=== PATIENT | female | born 1950 | race Two or more races ===

== ENCOUNTER 2024-07-08 14:26 | Outpatient (AMB) | payer OTHER, SELFPAY ==
--- NOTE | 2024-07-08 14:29 | HO.NEPHOV_ITS ---
Vital Signs 07/08/24 14:36 Weight 232 lb 2 oz BP 142/66 H Blood Pressure Location Lt brachial Position Sitting Pulse 71 Pulse Source Pulse Oximeter Pulse Oximetry (%) 97 Oxygen Delivery Method Room Air Intake Visit Reasons: DX- HTN-Conf [employer] Required: No Accompanied by: Other Relationship Allergies aspirin Allergy (Verified 06/30/24 16:37) Unknown terbinafine Allergy (Verified 06/30/24 16:37) Rash HPI Comments Details: I had the privilege of seeing Harriett in consultation for labile blood pressure. She is known to have hypertension for a long time and had been on amlodipine before, which has caused ankle swelling as a side effect and subsequently got discontinued. She has history of CVA without any significant deficits. She has been started on losartan, dose of which has been adjusted(currently 75 mg). Her blood pressure continues to be fluctuant and is not at goal all the time. She has no history of hypokalemia, hypercalcemia, uncontrolled thyroid disorders and denied any symptoms suggestive of sleep apnea. She keeps up with a normal diet. She does not have any pedal edema, coronary artery disease, orthostatic symptoms, palpitation or proteinuria. She has dyslipidemia and is on simvastatin. She did not have any specific systemic complaints at the time of this office visit. [facility] Medical History (Updated 07/08/24 @ 21:48 by Osman Gibbons MD) History of cerebral angiography Transient cerebral ischemia ASHKAN (stress urinary incontinence, female) Shoulder impingement syndrome Onychomycosis Lateral epicondylitis Knee osteoarthritis Insomnia Inguinal hernia Hyperlipidemia Hyperglycemia GERD (gastroesophageal reflux disease) Fibromyalgia syndrome Dyspepsia Diverticulosis Depression Chronic constipation Chronic back pain Cerebral arteriovenous malformation Bilateral chronic knee pain Benign paroxysmal vertigo Benign essential hypertension Arteriovenous malformation (AVM) Anogenital lichen sclerosus Adult-onset obesity Atopic dermatitis Abdominal pain Family History (Updated 07/08/24 @ 14:33 by Daylin Wright MA) Son Diabetes Social History (Updated 06/30/24 @ 16:36 by Daylin Wright MA) Alcohol intake: never Patient Tobacco Use Status: Never used Tobacco Review of Systems Const All systems reviewed & are unremarkable except as noted in HPI and below Physical Exam Vital Signs: Last Vital Signs Pulse 71 07/08/24 14:36 BP 142/66 H 07/08/24 14:36 Pulse Ox 97 03/13/25 14:36 Oxygen Delivery Method Room Air 03/13/25 14:36 Const General: comfortable and no acute distress Orientation/consciousness: patient oriented x3 HEENT Head: Yes normocephalic Mouth: Normal oral and palatal mucosa present Eyes EOM: EOMs intact bilaterally Neck Neck: Yes supple Resp Auscultation: clear to auscultation bilaterally Cardio Jugular venous distension: no JVD Rate: regular rate GI Palpation (GI): Soft to palpation Auscultation: normal bowel sounds General: Yes no CVA tenderness Back/Spine/Pelvis Back: no CVA tenderness Skin General skin exam: no rashes or lesions noted Neuro General: patient oriented x3 and moves all extremities Extrem General: Yes no pedal edema Results Reviewed Nephrology Results: No Data to Display Assessment & Plan Assessment & Plan (1) Hypertension: Code(s): I10 - Essential (primary) hypertension Category: Medical Qualifiers: Hypertension type: primary hypertension Qualified Code(s): I10 - Essential (primary) hypertension Plan Harriett has longstanding hypertension and has tried a calcium channel sallie before but had to be discontinued due to edema side effect. She should be on a low-sodium diet and should lose some weight. She could benefit from GLP 1 agonist. She should be on a low-sodium diet. She also will benefit from a slee p study. Her thyroid function is normal. She has history of CVA and her blood pressure should be maintained at less than 130/80 mmHg. I put her on 24 hour ambulatory blood pressure monitor today. I shall continue to optimize the dose of her medications to get her blood pressure to goal. She should be on Lipitor to get her lipid profile better controlled. Further management is pending evolving data. Answered all questions Orders: Orders AMB 24 HR B/P Monitor PLACEMENT Today I10 - Essential (primary) hypertension Coding Level of Care Code New Pt Level 4 (69849) Diagnoses Primary hypertension I10 Hypertension type: primary hypertension
[2024-07-08 14:36] VITALS: BP 142/66; PULSE 71; O2SAT 97
--- OUTSIDE RECORDS SUMMARY | 2024-07-08 18:17 | XMS_ITS | Clinical Summary ---
Author Organization [address] [place] Address [address] [place] [address] Phone Care Team Providers Care Customer Service Supervisor Name Role Phone Physician, No Pcp Primary Care Provider Unavaila ble Allergies Active Allergy Reactions Criticality Noted Date Comments Aspirin Other,Rash Low 06/29/2022 GI upset only Penicillins Unknown High 07/14/2022 Terbinafine Rash Low 06/29/2022 Medications brimonidine (ALPHAGAN) 0.2 % ophthalmic solution 1 drop. 06/07/19 23 Active dicyclomine (BENTYL) 20 mg tablet Take 1 tablet (20 mg total) by mouth. 06/25/19 23 Active dorzolamide-t imoloL (COSOPT) 22.3-6.8 mg/mL ophthalmic solution Administer 1 drop into both eyes 2 (two) times a day. 09/29/19 21 Active latanoprost (XALATAN) 0.005 % ophthalmic solution 1 drop. 06/07/19 23 Active levETIRAcetam (KEPPRA) 500 mg tablet Take 1 tablet (500 mg total) by mouth 2 (two) times a day. 08/14/19 23 Active meclizine (ANTIVERT) 12.5 mg tablet Take 1 tablet (12.5 mg total) by mouth. 09/21/19 19 Active pantoprazole (PROTONIX) 40 mg EC tablet Take 1 tablet (40 mg total) by mouth 2 (two) times a day. 05/17/19 23 Active senna 8.6 mg tablet TAKE 2 TABLET BY MOUTH DAILY FOR CONSTIPATION WITH PLENTY OF WATER. 04/11/20 22 Active simethicone (MYLICON) 80 mg chewable tablet CHEW 1 TABLET BY MOUTH TWICE A DAY NEEDED 05/27/19 23 Active simvastatin (ZOCOR) 20 mg tablet Take 1 tablet (20 mg total) by mouth. 05/30/19 Active zolpidem (AMBIEN) 10 mg tablet Take 1 tablet (10 mg total) by mouth. 05/29/19 Active ergocalcifero l, vitamin D2, (VITAMIN D2 ORAL) Take by mouth. Activ e losartan (COZAAR) 50 mg tablet Take 1 tablet (50 mg total) by mouth 1 (one) time each day. Active amLODIPine (NORVASC) 5 mg tablet Take 1 tablet (5 mg total) by mouth 1 (one) time each day. 08/14/19 025 Discontinued diphenhydrAMI NE (Banophen) 25 mg capsule TAKE 1 CAPSULE BY MOUTH TWICE A DAY FOR MOTION SICKNESS 05/26/19 025 Discontinued lactulose (CHRONULAC) solution TAKE 15ML BY MOUTH DAILY NEEDED FOR CONSTIPATION, TAKE WITH PLENTY OF FLUIDS 06/04/19 23 025 Discontinued(S top Taking at Discharge) methocarbamoL (ROBAXIN) 750 mg tablet Take 1 tablet (750 mg total) by mouth. 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 AVM (arteriovenous malformation) 06/29/2022 TIA (transient ischemic attack) 06/29/2022 Encounters Date Type Department Care Team Description 07/05/2024 Telephone Neurosurgery - [facility] [address] [place] [address] Ning Vann MA 06/23/2024 11:57 AM EST - 06/24/2024 9:51 AM EST Hospital Encounter [facility] ICU 5-[address] [place] [address] Vaibhav Cevallos MD Condit, [place], MD Khader Eliyas, Javed, MD Dural arteriovenous fistula Discharge Disposition: Home or Self Care 06/23/2024 11:41 AM EST Anesthesia Event [facility] Interventional Radiology [address] [place] [address] Columba Gomez MD Debin, Adam M, 06/22/2024 Telephone Neurosurgery - [facility] [address] [place] [address] Ning Vann MA 06/16/2024 Telephone Neurosurgery - [place] [address] [place] [id number] Jackson Guan MD 06/15/2024 Telephone Neurosurgery - [facility] [address] [place] [address] Sharmaine Sargent, RN IR date 04/27/2024 Telephone Neurosurgery - [facility] [address] [place] [address] Sharmaine Sargent, RN from Last 3 Months Immunizations Name Administration Dates Next Due Influenza Virus Vaccine, H5n 1, A/[place]/ (National Stockpile) 03/02/2015,02/10/2012 Pneumococcal conjugate 13 va lent (Prevnar 13, PCV13) 2mo and older 07/03/2016 Pneumococcal polysaccharide 23 valent (Pneumovax 23) 2yo and older 09/03/2017,04/08/2011 Td Tetanus diptheria (Tdvax) 7yo and older 10/17 Tdap Tetanus diptheria acell ular pertussis (Boostrix; Adacel) 7yo and older 09/17/2018,06/16/2014 Zoster Live 07/02/2016 Surgical History Surgery Date Site/Laterality Comments EXPLORATORY LAPAROTOMY W/ VAIBHAV WEL RESECTION 2008 PROCEDURE:EXPLORATORY LAPAROTOMY W/ BOWEL RESECTION;COMMENT:for perforated bowel, no ostomy Medical History Medical History Date Comments HLD (hyperlipidemia) DX:HLD (hyp erlipidemia) GERD (gastroesophageal reflux disease) DX:GERD (gastroesophageal reflux disease) Glaucoma DX:Glaucoma Family History Medical History Relation Name Comments Heart attack Father Stroke Mother in sleep possibly from stroke Relation Name Status Comments Father Mother Social History Tobacco Use Types Packs/Day Years Used Date Smoking Tobacco: Never Smokeless Tobacco: Never Tobacco Cessation:Counseling Given: Not Answered Alcohol Use Standard Drinks/Week Comments Not Currently 0 (1 standard drink = 0.6 oz pur e alcohol) Housing Instability Answer Date Recorde d Are you worried that in the next 2 months you may not have stable housing? No 06/23/2024 Food Access & Nutrition Answer Date Rec orded Do you have access to a vari ety of food including fruits and vegetables? No 06/23/2024 Health Literacy Answer Date Recorded How often do you need to hav e someone help you when you read instructions, pamphlets, or other written material from your doctor or pharmacy? Never 06/23/2024 Caregiver: How often do you need to have someone help you when you read instructions, pamphlets, or other written material from your doctor or pharmacy? Not on file 06/23/2024 Financial Risk Answer Date Recorded How hard is it for you to pa y for the very basics like food, housing, medical care, and air conditioning / heating? Not very hard 06/23/2024 Transportation Answer Date Recorded Has the lack of transportati on kept you from meetings, work, or from getting things needed for daily living? No Has the lack of transportati on kept you from medical appointments or from getting medications? No 06/23/2024 Social Isolation Answer Date Recorded How often do you feel lonely or isolated from th ose around you? Never 06/23/2024 Food Risk Answer Date Recorded Within the past 12 months we worried whether our food would run out before we got money to buy more. Never true 06/23/2024 Within the past 12 months th e food we bought just didn't last and we didn't have money to get more. Never true 06/23/2024 Dependent Care Answer Date Recorded Do you need help finding or paying for care for your loved ones. For example, child nutrition assistant or elderly care for an older adult? No 06/23/2024 Education Answer Date Recorded Do you think completing more education or training, like finishing a GED, going to college, or learning a trade, would be helpful for you? No 06/23/2024 Employment and Income Answer Date Recor ded During the last four weeks, have you been actively looking for work? No 06/23/2024 Living Situation Answer Date Recorded What is your living situation? 0 06/23/2024 Interpersonal Safety Answer Date Record ed Physical Abuse 06/23/2024 Verbal Abuse 06/23/2024 Comments Unknown Sex and Gender Information Value Date Recorded Sex Assigned at Female 05/17/2024 8:52 AM EST Legal Sex Female 3:32 PM EST Gender Identity Female 05/17/2024 8:52 AM EST Sexual Orientation Not on file Obstetrics History Last Filed Vital Signs Vital Sign Reading Time Taken Comments Blood Pressure 137/57 06/24/2024 11:00 AM EST Pulse 78 06/24/2024 11:00 AM EST Temperature 37.1 ??C (98.8 ??F) 06/24/2024 8:00 AM ES T Respiratory Rate 15 06/24/2024 11:00 AM EST Oxygen Saturation 97% 06/24/2024 11:00 AM EST Inhaled Oxygen Concentration - - Weight 101 kg (222 lb) 06/23/2024 8:42 AM EST Height 167.6 cm (5' 6 ) 06/23/2024 8:42 AM EST Body Mass Index 35.83 06/23/2024 8:42 AM EST Plan of Treatment Health Maintenance Due Date Last Done Comments Breast Cancer Screening 1950 RSV Immunization Patients 60+ Years Old (1 - Risk 60-74 years 1-dose series) 2011 Zoster Vaccines (2 of 3) 08/27/2016 07/02/2016 Colorectal Cancer Screening: Colonoscopy 03/27/2022 Depression Screening 03/27/2022 Hepatitis C Screening 03/27/2022 Medicare Annual Wellness Visit 03/27/2022 Osteoporosis Screening (Bone Density Screening) 03/27/2022 COVID-19 Vaccine ( - season) 2023 04/24/2021, 08/17/2020, 07/20/2020 Influenza Vaccine (#1) 2023 03/02/2015, 2011 Social Influencers of Health Screening 06/23/2025 06/23/2024 Falls Risk Assessment 06/24/2025 06/24/2024 Hypertension/CHF/CAD Annual BMP Blood Test 06/24/2025 06/24/2024, 06/23/2024, 06/15/2024, Additional history exists Cholesterol Screening (Lipid Panel) 07/02/2027 07/01/2022, 07/01/2022 DTaP,Tdap,and Td Vaccines (4 - Td or Tdap) 09/17/2028 09/17/2018, 06/16/2014, 10/17/2004 Pneumococcal Vaccine: 50+ Years Completed 09/03/2017, 07/03/2016, 04/08/2011 HIB Vaccines Aged Out No longer eligi ble based on patient's age to complete this topic HPV Vaccines Aged Out No longer eligi ble based on patient's age to complete this topic Hepatitis A Vaccines Aged Out No long er eligible based on patient's age to complete this topic Hepatitis B Vaccines Aged Out No long er eligible based on patient's age to complete this topic IPV Vaccines Aged Out No longer eligi ble based on patient's age to complete this topic MMR Vaccines Aged Out No longer eligi ble based on patient's age to complete this topic Meningococcal ACWY Vaccine Aged Out N o longer eligible based on patient's age to complete this topic Meningococcal B Vacine Aged Out No lo nger eligible based on patient's age to complete this topic RSV Immunization Patients Under 20 months Aged Out No longer eligible based on patient's age to complete this topic Varicella Vaccines Aged Out No longer eligible based on patient's age to complete this topic Medical Devices Implanted Type Area Set Up Operator Device Identifier Shelf Expiration Date Model / Serial / Lot Embolic Syst Liq Clarkson 18 - [id number] - [id number] Implanted:Qt y: 1 on 06/23/2024 at [facility] Embolectomy Implants Right: Brain [employer] - EV3 FKA COVD-EV3 11/23/2026 [id number] / [id number] / Device Clsur Angioseal 6f Vip 5/Pk 10/Bx/Ca - [id number] - [id number] Implanted:Qt y: 1 on 06/23/2024 at [facility] Vascular Closure Devices Right: Groin TERUMO - INTERVENTIONAL SYSTEM 11/04/2024 [id number] / [id number] / Embolic Syst Liq Clarkson 18 Medt-Ev3 [id number] Implanted:Qt y: 2 on 07/03/2022 [employer] - CARDIAC RHYTH-CRDM 08/24/2023 [id number] / / [id number] Procedures Procedure Name Priority Date/Time Associated Diagnosis Comments POCT GLUCOSE BLOOD Routine 06/24/2024 8: 58 AM EST COMPLETE BLOOD COUNT Routine 06/24/2024 4:58 AM EST PHOSPHORUS Routine 06/24/2024 4:58 AM EST MAGNESIUM Routine 06/24/2024 4:58 AM EST HEPATIC FUNCTION PANEL Routine 06/24/2024 4:58 AM EST BASIC METABOLIC PANEL Routine 06/24/2024 4:58 AM EST POCT GLUCOSE BLOOD Routine 06/24/2024 12 :39 AM EST HEMOGLOBIN A1C Routine 06/23/2024 7:25 PM EST PHOSPHORUS Routine 06/23/2024 7:25 PM EST MAGNESIUM Routine 06/23/2024 7:25 PM EST COMPLETE BLOOD COUNT Routine 06/23/2024 7:25 PM EST COMPREHENSIVE METABOLIC PANEL Routine 06/23/2024 7:25 PM EST ECG 12-LEAD Routine 06/23/2024 5:08 PM EST POCT GLUCOSE BLOOD Routine 06/23/2024 5: 03 PM EST IR TRANSCATH OCCLUSION/EMBOLIZATIO N RETORT PRESS OPERATOR PERC Routine 06/23/2024 3:26 PM EST Dural arteriovenous fistula POCT ACTIVATED CLOTTING TIME Routine 06/23/2024 1:34 PM EST TH AN ARTERIAL LINE (CHARGE) Routine 06/23/2024 1:33 PM EST TH AN ENDOTRACHEAL(NO CHARGE) Routine 06/23/2024 1:30 PM EST POCT ACTIVATED CLOTTING TIME Routine 06/23/2024 12:35 PM EST PROTHROMBIN TIME WITH INR Routine 06/15/2024 9:29 AM EST TIA (transient ischemic attack) 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) AVM (arteriovenous malformation) BASIC METABOLIC PANEL Routine 06/15/2024 9:29 AM EST TIA (transient ischemic attack) 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 Pathologist [facility] Glucose POCT 118 70 - 199 mg/dL 06/24/2024 8:59 AM EST [facility] Comment: Fasting Reference Range: ? 70-99 mg/dL Non-Fasting Reference Range: 70-199 mg/dL Blood Capillary blood specimen / Unknown 06/24/2024 8:58 AM EST 06/24/2024 9:00 AM EST Shai Wellington MD LAB POINT OF CARE TE ST DOCKED DEVICE UNSOLICITED RESULTS Final Result [facility] [address] [place] [address], [place] [phone] * (ABNORMAL) Complete blood count (06/24/2024 4:58 AM EST) Only the most recent of3 resultswithin the time period is included. WBC 5.6 4.0 - 10.5 K/mcL LAB HEMETOLOGY METHOD 06/24/2024 5:25 AM EST [facility] RBC 4.11(L) 4.20 - 5.40 M/mcL LAB HEMETOLOGY METHOD 06/24/2024 5:25 AM EST [facility] Hemoglobin 13.3 12.5 - 16.0 g/dL LAB HEMETOLOGY METHOD 06/24/2024 5:25 AM EST [facility] Hematocrit 39.8 37.0 - 47.0 % LAB HEMETOLOGY METHOD 06/24/2024 5:25 AM EST [facility] MCV 96.9 78.0 - 100.0 FL LAB HEMETOLOGY METHOD 06/24/2024 5:25 AM EST [facility] MCH 32.3 25.0 - 33.0 pcg LAB HEMETOLOGY METHOD 06/24/2024 5:25 AM EST [facility] MCHC 33.4 32.0 - 36.0 g/dL LAB HEMETOLOGY METHOD 06/24/2024 5:25 AM EST [facility] RDW 14.0 12.1 - 16.2 % LAB HEMETOLOGY METHOD 06/24/2024 5:25 AM EST [facility] Platelets 204 150 - 450 K/mcL LAB HEMETOLOGY METHOD 06/24/2024 5:25 AM EST [facility] MPV 10.3 7.4 - 11.4 FL LAB HEMETOLOGY METHOD 06/24/2024 5:25 AM EST [facility] Blood Venous blood specimen / Unknown Venipuncture / Unknown 06/24/2024 4:58 AM EST 06/24/2024 5:18 AM EST us Vaibhav Cevallos MD LAB BLOOD ORDERABLES Final Res ult [facility] [address] [place] [address], * (ABNORMAL) Phosphorus (06/24/2024 4:58 AM EST) Only the most recent of2 resultswithin the time period is included. Phosphorus 5.8(H) 2.5 - 4.5 mg/dL LAB CHEMISTRY METHOD 06/24/2024 5:51 AM EST [facility] Comment:Moderately hemolyzed Blood Venous blood specimen / Unknown Venipuncture / Unknown 06/24/2024 4:58 AM EST 06/24/2024 5:18 AM EST us Vaibhav Cevallos MD LAB BLOOD ORDERABLES Final Res ult [facility] [address] [place] [id number], * Magnesium (06/24/2024 4:58 AM EST) Only the most recent of2 resultswithin the time period is included. [facility] Magnesium 1.8 1.7 - 2.8 mg/dL LAB CHEMISTRY METHOD 06/24/2024 5:51 AM EST [facility] Comment:Moderately hemolyzed Blood Venous blood specimen / Unknown Venipuncture / Unknown 06/24/2024 4:58 AM EST 06/24/2024 5:18 AM EST us Vaibhav Cevallos MD LAB BLOOD ORDERABLES Final Res ult [facility] [address] [place] [address], [place] [phone] * Hepatic function panel (06/24/2024 4:58 AM EST) [facility] ALT (SGPT) 13 7 - 52 unit/L LAB CHEMISTRY METHOD 06/24/2024 5:51 AM EST [facility] Comment:Moderately hemolyzed AST (SGOT) 37 5 - 40 unit/L LAB CHEMISTRY METHOD 06/24/2024 5:51 AM EST [facility] Comment:Moderately hemolyzed Alkaline Phosphatase 41 34 - 104 unit/L LAB CHEMISTRY METHOD 06/24/2024 5:51 AM EST [facility] Comment:Moderately hemolyzed Bilirubin, Direct 0.1 0.0 - 0.2 mg/dL LAB CHEMISTRY METHOD 06/24/2024 5:51 AM EST [facility] Comment:Moderately hemolyzed Total Bilirubin 0.6 0.3 - 1.0 mg/dL LAB CHEMISTRY METHOD 06/24/2024 5:51 AM EST [facility] Comment:Moderately hemolyzed Total Protein 6.7 6.4 - 8.5 g/dL LAB CHEMISTRY METHOD 06/24/2024 5:51 AM EST [facility] Comment:Moderately hemolyzed Albumin 3.7 3.5 - 5.0 g/dL LAB CHEMISTRY METHOD 06/24/2024 5:51 AM EST [facility] Comment:Moderately hemolyzed Globulin, Total 3.0 2.3 - 3.5 g/dL LAB CHEMISTRY METHOD 06/24/2024 5:51 AM [facility] A/G Ratio 1.2 LAB CHEMISTRY METHOD 06/24/2024 5:51 AM [facility] Blood Venous blood specimen / Unknown Venipuncture / Unknown 06/24/2024 4:58 AM EST 06/24/2024 5:18 AM EST us Vaibhav Cevallos MD LAB BLOOD ORDERABLES Final Res ult [facility] [address] [place] [address], [place] [phone] * (ABNORMAL) Basic metabolic panel (06/24/2024 4:58 AM EST) Only the most recent of2 resultswithin the time period is included. [facility] Signature Sodium 139 135 - 145 mmol/L LAB CHEMISTRY METHOD 06/24/2024 5:51 AM EST [facility] Comment:Moderately hemolyzed Potassium 4.2 3.5 - 5.1 mmol/L LAB CHEMISTRY METHOD 06/24/2024 5:51 AM [facility] Comment:Moderately hemolyzed Chloride 106 98 - 107 mmol/L LAB CHEMISTRY METHOD 06/24/2024 5:51 AM [facility] Comment:Moderately hemolyzed CO2 24 24 - 32 mmol/L LAB CHEMISTRY METHOD 06/24/2024 5:51 AM [facility] Comment:Moderately hemolyzed Anion Gap 9 5 - 14 LAB CHEMISTRY METHOD 06/24/2024 5:51 AM [facility] Glucose 162 70 - 199 mg/dL LAB CHEMISTRY METHOD 06/24/2024 5:51 AM [facility] Comment:Moderately hemolyzed BUN 10 7 - 17 mg/dL LAB CHEMISTRY METHOD 06/24/2024 5:51 AM [facility] Comment:Moderately hemolyzed Creatinine 0.70 0.50 - 1.00 mg/dL LAB CHEMISTRY METHOD 06/24/2024 5:51 AM [facility] Comment:Moderately hemolyzed eGFR 91 >=60 mL/min/1. 73m2 LAB CHEMISTRY METHOD 06/24/2024 5:51 AM [facility] Comment:Calculation based on the??Chronic Kidney Disease Epidemiology Collaboration (CKD-EPI) equation refit??without adjustment for race. BUN/Creatinine Ratio 14.3 12.0 - 20.0 LAB CHEMISTRY METHOD 06/24/2024 5:51 AM [facility] Calcium 8.1(L) 8.4 - 10.2 mg/dL LAB CHEMISTRY METHOD 06/24/2024 5:51 AM [facility] Comment:Moderately hemolyzed Blood Venous blood specimen / Unknown Venipuncture / Unknown 06/24/2024 4:58 AM EST 06/24/2024 5:18 AM EST Vaibhav Cevallos MD LAB BLOOD ORDERABLES Final Res ult Performing Organization Address City/[facility]/ZIP Co de Phone Number [facility] [address] [place] [address], [place] [phone] * (ABNORMAL) Hemoglobin A1c (06/23/2024 7:25 PM EST) Hemoglobin A1C 6.1(H) <5.7 % LAB CHEMISTRY METHOD 06/24/2024 8:58 AM EST [facility] Mean Bld Glu Estim. 128 mg/dL LAB CHEMISTRY METHOD 06/24/2024 8:58 AM EST [facility] Blood Venous blood specimen / Unknown Venipuncture / Unknown 06/23/2024 7:25 PM EST 06/23/2024 7:42 PM EST Narrative [facility] - 06/24/2024 8:58 AM EST ADA Guidelines: ?? Increased risk Diabetes Mellitus A1C 5.7 - 6.4% and Fasting Blood Glucose 100 - 125 mg/dl Diabetes Mellitus: A1C >6.5% and Fasting Blood Glucose >125 mg/dl Vaibhav Cevallos MD LAB BLOOD ORDERABLES Final Res ult Performing Organization Address City/[facility]/ZIP Co de Phone Number [facility] [address] [place] [address], [place] [phone] * (ABNORMAL) Comprehensive metabolic panel (06/23/2024 7:25 PM EST) Sodium 137 135 - 145 mmol/L LAB CHEMISTRY METHOD 06/23/2024 8:13 PM EST [facility] Potassium 3.7 3.5 - 5.1 mmol/L LAB CHEMISTRY METHOD 06/23/2024 8:13 PM EST [facility] Chloride 107 98 - 107 mmol/L LAB CHEMISTRY METHOD 06/23/2024 8:13 PM EST [facility] CO2 21(L) 24 - 32 mmol/L LAB CHEMISTRY METHOD 06/23/2024 8:13 PM [facility] Anion Gap 9 5 - 14 LAB CHEMISTRY METHOD 06/23/2024 8:13 PM [facility] Glucose 155 70 - 199 mg/dL LAB CHEMISTRY METHOD 06/23/2024 8:13 PM [facility] BUN 11 7 - 17 mg/dL LAB CHEMISTRY METHOD 06/23/2024 8:13 PM [facility] Creatinine 0.70 0.50 - 1.00 mg/dL LAB CHEMISTRY METHOD 06/23/2024 8:13 PM [facility] eGFR 91 >=60 mL/min/1. 73m2 LAB CHEMISTRY METHOD 06/23/2024 8:13 PM [facility] Comment:Calculation based on the??Chronic Kidney Disease Epidemiology Collaboration (CKD-EPI) equation refit??without adjustment for race. BUN/Creatinine Ratio 15.7 12.0 - 20.0 LAB CHEMISTRY METHOD 06/23/2024 8:13 PM [facility] Calcium 8.7 8.4 - 10.2 mg/dL LAB CHEMISTRY METHOD 06/23/2024 8:13 PM [facility] AST (SGOT) 22 5 - 40 unit/L LAB CHEMISTRY METHOD 06/23/2024 8:13 PM [facility] ALT (SGPT) 11 7 - 52 unit/L LAB CHEMISTRY METHOD 06/23/2024 8:13 PM [facility] Alkaline Phosphatase 59 34 - 104 unit/L LAB CHEMISTRY METHOD 06/23/2024 8:13 PM [facility] Total Protein 7.3 6.4 - 8.5 g/dL LAB CHEMISTRY METHOD 06/23/2024 8:13 PM [facility] Albumin 4.2 3.5 - 5.0 g/dL LAB CHEMISTRY METHOD 06/23/2024 8:13 PM [facility] Total Bilirubin 0.6 0.3 - 1.0 mg/dL LAB CHEMISTRY METHOD 06/23/2024 8:13 PM EST [facility] Blood Venous blood specimen / Unknown Venipuncture / Unknown 06/23/2024 7:25 PM EST 06/23/2024 7:42 PM EST Vaibhav Cevallos MD LAB BLOOD ORDERABLES Final Res ult Performing Organization Address [facility] Co de Phone Number [facility] [address] [place] [address], [place] [phone] * ECG 12 lead (06/23/2024 5:08 PM EST) Ventricular Rate ECG 95 BPM GEMUSE Atrial Rate 95 BPM GEMUSE P-R Interval 182 ms GEMUSE QRS Duration 84 ms GEMUSE Q-T Interval 358 ms GEMUSE QTc 449 ms GEMUSE P Wave [place] 66 degrees GEMUSE R [place] 39 degrees GEMUSE T [place] 54 degrees GEMUSE ECG Interpretation Normal sinus rhythm Nonspecific ST and T wave abnormality Abnormal ECG When compared with ECG of 29-JUN-2022 23:08, Vent. rate has increased BY ??35 BPM Confirmed by Jayson Carty ([id number]) on 07/02/2024 11:33:28 PM GEMUSE 06/23/2024 5:08 PM EST 07/02/2024 11:33 PM EST Vaibhav Cevallos MD ECG ORDERABLES Final Result Performing Organization Address [facility] Co de Phone Number GEMUSE * IR Transcath Occlusion/Embolization RETORT PRESS OPERATOR Perc (06/23/2024 3:26 PM EST) Anatomical Region Laterality Modality Interventional R adiology 06/25/2024 8:21 AM EST Impressions 06/25/2024 5:23 PM EST 1. Successful embolization of dural arteriovenous fistula supplied by right middle meningeal artery. ??Follow up angiography showed no residual fistula. Report reviewed and signed by : Dr. Jackson Villatoro MD on 06/25/2024 5:23 PM. Workstation Name - [id number] -------- FINAL REPORT -------- Dictated By: Jackson Guan Dictated Date: 06/25/2024 08:21 ET Assigned Physician: Jackson Guan Reviewed and Electronically Signed By: Jackson Guan Signed Date: 06/25/2024 17:23 ET Workstation ID: [id number] Transcribed By: Self Edit Transcribed Date: 06/25/2024 08:21 ET Narrative 06/25/2024 5:23 PM EST Patient Name: HARRIETT HOLT ? MR#: [id number] ? Exam Description: IR TRANSCATH OCCLUSION/EMBOLIZATION RETORT PRESS OPERATOR PERC ? Exam Date/Time: 06/23/2024 11:28 AM PROCEDURE: 1. Cervicocerebral catheter angiography 2. 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 ?? RADIATION DOSE: Dose area product: 12538 uGym2, air kerma: 2009 mGy CONTRAST USE: 100 mL Isovue 300. ANESTHESIA: GETA VESSELS CATHETERIZED/PROJECTIONS: Right external carotid artery PA and lateral Right common carotid artery PA and lateral Left common carotid artery PA and lateral Left vertebral artery EQUIPMENT: 5-Canadian Mast 2 selection catheter Joy 5 F guide cathter Navien intermediate catheter 6F Shuttle sheath SL-10 Headway duo microcatheter [place] 014 microwire Synchro 2 soft 014 microwire 0.035 Glidewire Angioseal closure device TECHNIQUE/FINDINGS: The risks, benefits, and alternatives to the procedure and possible intervention were discussed with the patient's parents. Written informed consent was obtained. The patient was placed supine on the angiography table. GETA was induced by anesthesia. A timeout was performed. Bilateral groins were prepped and draped in standard sterile fashion. Access to the right femoral artery was obtained using standard micropuncture technique, under ultrasound guidance after confirming patency of the right common femoral artery and its branches.. ??A 6 Canadian shuttle sheath was placed and attached to continuous heparinized flush. Through the arterial sheath, 5 Canadian diagnostic catheter was over 035 Glidewire to select the right external carotid artery. ??A solution catheter and Glidewire were removed after advancing the shuttle into the distal right external carotid artery. ??Baseline angiogram of the right external carotid artery was then performed. ??This showed persistent high parietal dural arteriovenous fistula supplied primarily by the posterior branch of the right middle meningeal artery. ??Next, a SL 10 microcatheter was taken over Synchro wire 10 microwire with further support augmented by Navien intermediate catheter. The intermediate catheter was advanced until the origin of the middle meningeal artery while the SL 10 microcatheter was taken into the middle meningeal artery branch that supplied the fistula. Due to the tortuosity of the posterior branch off the right middle meningeal artery that was supplying the fistula, significant challenges experienced in advancing the catheter close to the fistula. ??Different microwire were used but microcatheter could not advance to an optimum position. ??Hence, an exchange length Synchro 2 microwire was then used to remove the center microcatheter and intermediate catheter. ??Next, over the 014 exchange length microwire, an headway duo microcatheter was advanced with the support of Joy 5-Canadian catheter. ??This was still challenging but eventually microcatheter could be advanced very close to the fistula itself. ??Once placed in optimum position, the microwire was removed and the microcatheter catheter prepped with DMSA. Next, under live fluoroscopy, Clarkson was used to embolize the fistula with reasonably good penetration. Follow up angiography of the right external carotid artery was then performed, which showed no evidence of any distal fistula. ??The shuttle was then brought down into the common carotid artery and AP and lateral angiogram of the right common carotid artery was obtained. ??This also showed no residual fistulization in addition to confirming patency of all major intracranial vasculature. ??Next, the shuttle was brought into the descending aorta and the left common carotid artery was selected with a 5-Canadian selection catheter over 035 Glidewire to perform AP and lateral angiogram. ??This showed patent intracranial vasculature and no evidence of a suitable dural artery venous fistula. ??Finally, the left vertebral artery was selected with the 5-Canadian selection catheter and 035 Glidewire to obtain an angiogram in AP and lateral plane. ??Review of this angiogram showed that the left vertebral artery is dominant and all major basilar artery branches were patent, without any signs of dural arterial venous fistula The catheters were then removed. An Angioseal closure device was placed to close the operative site in the right common femoral artery. Hemostasis was achieved. A sterile dressing was applied. The patient transported to the Intensive Care Unit. There were no immediate complications. 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 Cervicocerebral catheter angiography 2. Fernando embolization of right middle meningeal artery pedicle embolizationof dural arterial venous fistula [employer]AURANT MANAGER(S): Jackson Villatoro MD INDICATION: High-grade dural arterial venous fistula, status post previouspartial embolization COMPARISON: Cerebral angiogram from 06/18/2023 FLUOROSCOPY TIME: 88 minutes. RADIATION DOSE: Dose area product: 99853 uGym2, air kerma: 2009 mGy CONTRAST USE: 100 mL Isovue 300. ANESTHESIA: GETA VESSELS CATHETERIZED/PROJECTIONS: Right external carotid artery PA and lateral Right common carotid artery PA and lateral Left common carotid artery PA and lateral Left vertebral artery EQUIPMENT: 5-Canadian Mast 2 selection catheter Joy 5 F guide cathter Navien intermediate catheter 6F Shuttle sheath SL-10 Headway duo microcatheter [place] 014 microwire Synchro 2 soft 014 microwire 0.035 Glidewire Angioseal closure device TECHNIQUE/FINDINGS: The risks, benefits, and alternatives to the procedure and possibleintervention were discussed with the patient's parents. Written informedconsent was obtained. The patient was placed supine on the angiographytable. GETA was induced by anesthesia. A timeout was performed. Bilateralgroins were prepped and draped in standard sterile fashion. Access to theright femoral artery was obtained using standard micropuncture technique,under ultrasound guidance after confirming patency of the right commonfemoral artery and its branches.. A 6 Canadian shuttle sheath was placedand attached to continuous heparinized flush. Through the arterial sheath, 5 Canadian diagnostic catheter was over 035Glidewire to select the right external carotid artery. A solutioncatheter and Glidewire were removed after advancing the shuttle into thedistal right external carotid artery. Baseline angiogram of the rightexternal carotid artery was then performed. This showed persistent highparietal dural arteriovenous fistula supplied primarily by the posteriorbranch of the right middle meningeal artery. Next, a SL 10 microcatheterwas taken over Synchro wire 10 microwire with further support augmented byNavien intermediate catheter. The intermediate catheter was advanced untilthe origin of the middle meningeal artery while the SL 10 microcatheterwas taken into the middle meningeal artery branch that supplied thefistula. Due to the tortuosity of the posterior branch off the right middlemeningeal artery that was supplying the fistula, significant challengesexperienced in advancing the catheter close to the fistula. Differentmicrowire were used but microcatheter could not advance to an optimumposition. Hence, an exchange length Synchro 2 microwire was then used toremove the center microcatheter and intermediate catheter. Next, over uxc680 exchange length microwire, an headway duo microcatheter was advancedwith the support of Joy 5-Canadian catheter. This was still challengingbut eventually microcatheter could be advanced very close to the fistulaitself. Once placed in optimum position, the microwire was removed andthe microcatheter catheter prepped with DMSA. Next, under livefluoroscopy, Clarkson was used to embolize the fistula with reasonably goodpenetration. Follow up angiography of the right external carotid artery was thenperformed, which showed no evidence of any distal fistula. The shuttlewas then brought down into the common carotid artery and AP and lateralangiogram of the right common carotid artery was obtained. This alsoshowed no residual fistulization in addition to confirming patency of allmajor intracranial vasculature. Next, the shuttle was brought into thedescending aorta and the left common carotid artery was selected with a5- Canadian selection catheter over 035 Glidewire to perform AP and lateralangiogram. This showed patent intracranial vasculature and no evidence ofa suitable dural artery venous fistula. Finally, the left vertebralartery was selected with the 5-Canadian selection catheter and 035 Glidewireto obtain an angiogram in AP and lateral plane. Review of this angiogramshowed that the left vertebral artery is dominant and all major basilarartery branches were patent, without any signs of dural arterial venous fistula The catheters were then removed. An Angioseal closure device was placed toclose the operative site in the right common femoral artery. Hemostasiswas achieved. A sterile dressing was applied. The patient transported tothe Intensive Care Unit. There were no immediate complications. IMPRESSION: 1. Successful embolization of dural arteriovenous fistula supplied byright middle meningeal artery. Follow up angiography showed no residualfistula. Report reviewed and signed by : Dr. Jackson Villatoro MD on 55:23 PM. Workstation Name - [id number] -------- FINAL REPORT -------- Dictated By: Jackson Guan Dictated Date: 06/25/2024 08:21 ET Assigned Physician: Jackson Guan Reviewed and Electronically Signed By: Jackson Guan Signed Date: 06/25/2024 17:23 ET Workstation ID: [id number] Transcribed By: Self Edit Transcribed Date: 06/25/2024 08:21 ET Jackson Villatoro MD IMG IR PROCEDURES Final R esult * POC Activated clotting time manually resulted (06/23/2024 1:34 PM EST) Only the most recent of2 resultswithin the time period is included. Activated Clotting Time Celite POCT 340 sec Blood Venous blood specimen / Unknown 06/23/2024 1:34 PM EST Jackson Villatoro MD POINT OF CARE TEST ENTER/ EDIT ORDERABLES Final Result * TH AN ARTERIAL LINE (CHARGE) (06/23/2024 1:33 PM EST) Narrative Yousuf Yao DO - 06/23/2024 1:33 PM EST Yousuf Yao DO ? 06/23/2024 ??1:33 PM Arterial Line Performed by: Yousuf Yao DO Authorized by: Yousuf Yao DO ?? Yousuf Yao DO ANESTHESIA ORDERABLES Final Resu lt * TH AN ENDOTRACHEAL(NO CHARGE) (06/23/2024 1:30 PM EST) Narrative Yousuf Yao DO - 06/23/2024 1:30 PM EST Yousuf Yao, DO ? 06/23/2024 ??1:32 PM General Information and Staff Patient location during procedure: OR Anesthesiologist: Yousuf Yao DO Performed: anesthesiologist Performed by: Yousuf Yao DO Authorized by: Yousuf Yao DO ?? Intubation Urgency: elective Final Airway Details Successful airway: ETT Cuffed: yes Successful intubation technique: direct laryngoscopy Endotracheal tube insertion site: oral Blade: Vogel Blade size: #3 ETT size (mm): 7.5 Placement verified by: chest auscultation Measured from: lips ETT to lips (cm): 21Final airway type: endotracheal airway Indications and Patient Condition Indications for airway management: anesthesia Spontaneous ventilation: present Sedation level: Yes Preoxygenated: yes Soft Tissue Damage: No Dentition Unchanged: Yes Patient position: neutral MILS maintained throughout Mask difficulty assessment: 1 - vent by mask us Yousuf Yao DO ANESTHESIA ORDERABLES Final Resu lt * Prothrombin time with INR (06/15/2024 9:29 AM EST) Protime 11.4 10.5 - 13.3 sec LAB COAGULATION METHOD 06/15/2024 2:36 PM EST [facility] INR 1.0 0.8 - 1.1 LAB COAGULATION METHOD 06/15/2024 2:36 PM EST [facility] Blood Venous blood specimen / Unknown Venipuncture / Unknown 06/15/2024 9:29 AM EST 06/15/2024 9:29 AM EST formerly [facility] - 06/15/2024 2:36 PM EST Std. Therapy ?2.0-3.0 INR High Dose Therapy 3.0-4.5 INR Ranges may vary depending on clinical indications and protocol. us Jackson Villatoro MD LAB BLOOD ORDERABLES Elina paiz Result [facility] [address] [place] [address], [place] [phone] * Lipid panel (07/01/2022) Triglycerides 141 <=150 mg/dL Cholesterol 175 0 - 200 mg/dL HDL 52 33 - 92 mg/dL LDL Cholesterol 95 50 - 130 mg/dL Blood Venous blood specimen / Unknown Historical Provider LAB BLOOD ORDERABLES Elina l Result from Last 3 Months or Most Recently Relevant to Health Maintenance Insurance [address] [address] MEDICARE Member Subscriber Plan / Payer (Ef fective 2022-Present) Name:Harriett Holt Relation to Subscriber:Self Name:Harriett Holt Payer ID:[id number] Group ID:[id number] Type:Not on file Address: [place] [address] [address] [id number] Advance Directives * Full Code - Confirmed (Latest Code Status on File) Date Activated Date Inactivated Comments 06/23/2024 4:09 PM 06/24/2024 2:[address] atus was ascertained in the following way: Code status discussion: discussion with healthcare chain sales representative To update the patient's code status, place a code status order. Do not modify or discontinue any currently active code status orders. * Full Code - Default Date Activated Date Inactivated Comments 06/23/2024 12:17 PM 06/23/2024 4:09 PM This is ord er is used when code status has not been discussed with the patient, or code status is otherwise unknown/unconfirmed To update the patient's code status, place a code status order. Do not modify or discontinue any currently active code status orders. Care Teams Customer Service Supervisor Relationship Specialty Start Date End Date Physician, No Pcp PCP - General 06/23/24
--- OUTSIDE RECORDS SUMMARY | 2024-07-08 18:17 | XMS_ITS | Encounter Summary ---
Author Organization [facility] Address [address] [place] [address] Care Team Providers Care Cuff Setter Name Role Phone Physician, No Pcp Primary Care Provider Unavaila ble Encounter Details Date Type Department Care Team (Late st Contact Info) Description 06/22/2024 Telephone [facility] [place] [address] [place] [address] Ning Vann MA Social History Tobacco Use Types Packs/Day Years Used Date Smoking Tobacco: Never Smokeless Tobacco: Never Alcohol Use Standard Drinks/Week Comments Not Currently [...] for your loved ones. For example, child adolescent care or elderly care for an older adult? [...] AM EST Sexual Orientation Not on file documented as of this encounter Progress Notes * Ning Vann MA - 06/22/2024 8:54 AM EST Pt's daughter returned Dr. Shauna velasquez. documented in this encounter Plan of Treatment Not on file documented as of this encounter Visit Diagnoses Not on filedocumented in this encounter Care Teams Cuff Setter Relationship Specialty Start Date End Date Physician, No Pcp PCP - General 06/23/24 documented as of this encounter
--- OUTSIDE RECORDS SUMMARY | 2024-07-08 18:17 | XMS_ITS | Encounter Summary ---
Author Organization [facility] Address [address] [place] [address] Care Team Providers Care Oracle Database Architect Name Role Phone Physician, No Pcp Primary Care Provider Unavaila ble Encounter Details Date Type Department Care Team (Late st Contact Info) Description 07/05/2024 Telephone [facility] [place] [address] [place] [address] Ning Vann MA Social History [...] for your loved ones. For example, child & adolescent psychiatrist or elderly care for an older adult? [...] on file documented as of this encounter Plan of Treatment Not on file documented as of this encounter Visit Diagnoses Not on filedocumented in this encounter Care Teams Oracle Database Architect Relationship Specialty Start Date End Date Physician, No Pcp PCP - General 06/23/24 documented as of this encounter
--- OUTSIDE RECORDS SUMMARY | 2024-07-08 18:17 | XMS_ITS ---
Author Name [facility] Organization Unknown Results Test Name/Text Value Interpretation Date Range Source Glucose Bld-mCnc 118mg/dL Normal 70 - 199 [facility] Est. average glucose Bld gHb Est-mCnc 128mg/dL Normal [id number] [facility] HbA1c MFr Bld 6.1% Above high normal [id number] - 5.7 [facility] AST SerPl-cCnc 37unit/L Normal [id number] 5 - 40 [facility] ALP SerPl-cCnc 41unit/L Normal [id number] 34 - 104 [facility] Globulin Ser Calc-mCnc 3g/dL Normal 2.3 - 3.5 [facility] Bilirub Direct SerPl-mCnc 0.1mg/dL Normal [id number] 0 - 0.2 [facility] ALT SerPl-cCnc 13unit/L Normal [id number] 7 - 52 [facility] Albumin/Glob SerPl 1.2 [id number] [facility] Bilirub SerPl-mCnc 0.6mg/dL Normal 0.3 - 1 [facility] Albumin SerPl-mCnc 3.7g/dL Normal [id number] 3.5 - 5 [facility] Prot SerPl-mCnc 6.7g/dL Normal [id number] 6.4 - 8.5 [facility] Potassium SerPl-sCnc 4.2mmol/L Normal [id number] 3.5 - 5.1 [facility] Glucose SerPl-mCnc 162mg/dL Normal [id number] 70 - 199 [facility] Chloride SerPl-sCnc 106mmol/L Normal 98 - 107 [facility] BUN SerPl-mCnc 10mg/dL Normal [id number] 7 - 17 [facility] Calcium SerPl-mCnc 8.1mg/dL Below low normal [id number] 8 .4 - 10.2 [facility] Anion Gap SerPl-sCnc 9 Normal [id number] 5 - 14 [facility] Creat SerPl-mCnc 0.7mg/dL Normal 0.5 - 1 [facility] BUN/Creat SerPl 14.3 Normal [id number] 12 - 20 [facility] Sodium SerPl-sCnc 139mmol/L Normal 135 - 145 [facility] eGFRcr SerPlBld CKD-EPI 2020 91mL/min/1.73 m2 Normal - [facility] CO2 SerPl-sCnc 24mmol/L Normal 24 - 32 [facility] Phosphate SerPl-mCnc 5.8mg/dL Above high normal [id number] 2.5 - 4.5 [facility] Magnesium SerPl-mCnc 1.8mg/dL Normal 1.7 - 2.8 [facility] MCH RBC Qn Auto 32.3pcg Normal [id number] 25 - 33 [facility] RBC # Bld Auto 4.11M/mcL Below low normal [id number] 4.2 - 5.4 [facility] Hct VFr Bld Auto 39.8% Normal [id number] 37 - 47 [facility] Platelet # Bld Auto 204K/mcL Normal [id number] 150 - 450 [facility] RDW RBC Auto-Rto 14% Normal [id number] 12.1 - 16. 2 [facility] PMV Bld Auto 10.3FL Normal [id number] 7.4 - 11.4 [facility] Hgb Bld-mCnc 13.3g/dL Normal 12.5 - 16 [facility] MCV RBC Auto 96.9FL Normal [id number] 78 - 100 [facility] WBC # Bld Auto 5.6K/mcL Normal [id number] 4 - 10.5 CT [facility] MCHC RBC Auto-mCnc 33.4g/dL Normal [id number] 32 - 36 [facility] Glucose Bld-mCnc 144mg/dL Normal [id number] 70 - 199 [facility] Phosphate SerPl-mCnc 2.1mg/dL Below low normal [id number] 2.5 - 4.5 [facility] ALP SerPl-cCnc 59unit/L Normal [id number] 34 - 104 [facility] Glucose SerPl-mCnc 155mg/dL Normal 70 - 199 [facility] Chloride SerPl-sCnc 107mmol/L Normal [id number] 98 - 107 [facility] BUN SerPl-mCnc 11mg/dL Normal [id number] 7 - 17 [facility] Calcium SerPl-mCnc 8.7mg/dL Normal [id number] 8.4 - 10 .2 [facility] Anion Gap SerPl-sCnc 9 Normal [id number] 5 - 14 [facility] Sodium SerPl-sCnc 137mmol/L Normal [id number] 135 - 145 [facility] eGFRcr SerPlBld CKD-EPI 1 91mL/min/1.73 m2 Normal [id number] - [facility] CO2 SerPl-sCnc 21mmol/L Below low normal [id number] 24 - 32 [facility] Albumin SerPl-mCnc 4.2g/dL Normal [id number] 3.5 - 5 [facility] Potassium SerPl-sCnc 3.7mmol/L Normal [id number] 3.5 - 5.1 [facility] AST SerPl-cCnc 22unit/L Normal [id number] 5 - 40 [facility] Creat SerPl-mCnc 0.7mg/dL Normal [id number] 0.5 - 1 [facility] BUN/Creat SerPl 15.7 Normal [id number] 12 - 20 [facility] ALT SerPl-cCnc 11unit/L Normal [id number] 7 - 52 [facility] Bilirub SerPl-mCnc 0.6mg/dL Normal [id number] 0.3 - 1 [facility] Prot SerPl-mCnc 7.3g/dL Normal [id number] 6.4 - 8.5 [facility] Magnesium SerPl-mCnc 1.7mg/dL Normal [id number] 1.7 - 2.8 [facility] MCH RBC Qn Auto 32.1pcg Normal [id number] 25 - 33 [facility] RBC # Bld Auto 4.42M/mcL Normal [id number] 4.2 - 5.4 CT [facility] Hct VFr Bld Auto 43.3% Normal [id number] 37 - 47 [facility] Platelet # Bld Auto 209K/mcL Normal [id number] 150 - 450 [facility] RDW RBC Auto-Rto 13.8% Normal [id number] 12.1 - 16. 2 [facility] PMV Bld Auto 10.5FL Normal [id number] 7.4 - 11.4 [facility] Hgb Bld-mCnc 14.2g/dL Normal [id number] 12.5 - 16 [facility] MCV RBC Auto 97.8FL Normal [id number] 78 - 100 [facility] WBC # Bld Auto 8.8K/mcL Normal [id number] 4 - 10.5 CT [facility] MCHC RBC Auto-mCnc 32.9g/dL Normal [id number] 32 - 36 [facility] Glucose Bld-mCnc 151mg/dL Normal [id number] 70 - 199 [facility] Potassium SerPl-sCnc 4.1mmol/L Normal [id number] 3.5 - 5.1 [facility] Glucose SerPl-mCnc 125mg/dL Above high normal [id number] 70 - 99 [facility] Chloride SerPl-sCnc 108mmol/L Above high normal [id number] 98 - 107 [facility] BUN SerPl-mCnc 14mg/dL Normal 7 - 17 [facility] Calcium SerPl-mCnc 8.9mg/dL Normal 8.4 - 10 .2 [facility] Anion Gap SerPl-sCnc 7 Normal [id number] 5 - 14 [facility] Creat SerPl-mCnc 0.8mg/dL Normal 0.5 - 1 [facility] BUN/Creat SerPl 17.5 Normal [id number] 12 - 20 [facility] Sodium SerPl-sCnc 143mmol/L Normal 135 - 145 [facility] eGFRcr SerPlBld CKD-EPI 2020 78mL/min/1.73 m2 Normal [id number] - [facility] CO2 SerPl-sCnc 28mmol/L Normal 24 - 32 [facility] PT Bld 11.4sec Normal [id number] 10.5 - 13.3 [facility] INR PPP 1 Normal [id number] 0.8 - 1.1 [facility] MCH RBC Qn Auto 33.3pcg Above high normal [id number] 25 - 33 [facility] RBC # Bld Auto 4.04M/mcL Below low normal [id number] 4.2 - 5.4 [facility] Hct VFr Bld Auto 39.3% Normal [id number] 37 - 47 [facility] Platelet # Bld Auto 197K/mcL Normal [id number] 150 - 450 [facility] RDW RBC Auto-Rto 13.8% Normal 12.1 - 16. 2 [facility] PMV Bld Auto 11FL Normal [id number] 7.4 - 11.4 [facility] Hgb Bld-mCnc 13.5g/dL Normal 12.5 - 16 [facility] MCV RBC Auto 97.1FL Normal [id number] 78 - 100 [facility] WBC # Bld Auto 4.1K/mcL Normal [id number] 4 - 10.5 CT [facility] MCHC RBC Auto-mCnc 34.3g/dL Normal [id number] 32 - 36 [facility] History of Medication Use Medication Directions Dispensed Refills Start Date End Date Stat sodium phosphates 60 mmol in sodium chloride 0.9 % 500 mL IVPB 60 mmol, intravenous, at 83.3 mL/hr, Administer over 6 Hours, Once, On Fri06/23/24 at 2330, For 1 dose 06/24/2024 5 completed magnesium oxide (MAG-OX) tablet 400 mg 400 mg, oral, Daily, First dose on Fri06/24/24 at 0900 06/24/2024 active losartan (COZAAR) tablet 75 mg 75 mg, oral, Daily, First dose (after last modification) on Fri06/24/24 at 0745 06/24/2024 active ergocalciferol, vitamin D2, (VITAMIN D2 ORAL) Take by mouth. act nkechi ondansetron (PF) (ZOFRAN) 4 mg/2 mL injection - ADS Override Pull Starting on Fri06/23/24 at 1544, For 1 dose, Created by cabinet override 06/23/2024 5 completed famotidine (PF) (PEPCID) injection 20 mg 20 mg, intravenous, Administer over 2 Minutes, Once, On Fri06/23/24 at 1600, For 1 dose 06/23/2024 5 completed dextrose (D50W) 50% injection 25 g 25 g, intravenous, Every 15 min PRN, low blood sugar, severe hypoglycemia *Patient is Unconscious, NPO, unable to swallow: BG LESS than 54 mg/dL*, Starting on Fri06/23/24 at 1553 06/23/2024 active ondansetron (PF) (ZOFRAN) injection 4 mg 4 mg, intravenous, Once, On Fri06/23/24 at 1615, For 1 dose 06/23/2024 5 completed acetaminophen (TYLENOL) tablet 1,000 mg 1,000 mg, oral, Every 6 hours PRN, mild pain, moderate pain, headaches, Starting on Fri06/23/24 at 1551 06/23/2024 active OLANZapine (ZyPREXA) tablet 5 mg 5 mg, oral, Once as needed, for breakthrough nausea, Starting on Fri06/23/24 at 1857, For 1 dose 06/23/2024 5 completed insulin lispro injection 1-6 Units 1-6 Units, subcutaneous, 3 times daily before meals, First dose on Fri06/23/24 at 1300, Indication: Total Daily Dose (TDD) LESS than 40 units Correction Scale: Low Dose Administer with meal and/or mealtime dose of insulin to correct high blood glucose If mealtime insulin dose not given (e.g. patien 06/23/2024 active dextrose 15 gram/60 mL oral solution 15 g 15 g, oral, Every 15 min PRN, low blood sugar, hypoglycemia *Patient conscious AND able to drink and swallow safely*, Starting on Fri06/23/24 at 1553 06/23/2024 active zolpidem (AMBIEN) tablet 10 mg 10 mg, oral, Nightly PRN, sleep, Starting on Fri06/23/24 at 1553 06/23/2024 active simethicone (MYLICON) chewable tablet 80 mg 06/23/2024 active iopamidoL (ISOVUE-300) 300 mg iodine /mL (61 %) solution 150 mL 150 mL, Other, Once in imaging, Starting on Fri06/23/24 at 1527, For 1 dose 06/23/2024 5 completed Glucagon HCl (rDNA) injection 1 mg 1 mg, intramuscular, Once as needed, low blood sugar, severe hypoglycemia, Starting on Fri06/23/24 at 1240, For 1 dose 06/23/2024 active atorvastatin (LIPITOR) tablet 10 mg 10 mg, oral, Nightly, First dose on Fri06/23/24 at 2100 06/24/2024 active niCARdipine (CARDENE) 25 mg in sodium chloride 0.9 % 250 mL (0.1 mg/mL) infusion 2.5-15 mg/hr (25-150 mL/hr), intravenous, Continuous, Starting on Fri06/23/24 at 1800, GOAL EFFECT: SBP LESS than 140 mmHg INITIAL RATE: 5 mg/hr TITRATION DOSE: 2.5 mg/hr TITRATION FREQUENCY: 5 min CONTACT PRESCRIBER: -SBP LESS than 90 mmHg -SBP GREATER than 180 mmHg * Individual case 06/23/2024 active fentaNYL (PF) (SUBLIMAZE) injection 25 mcg 25 mcg, intravenous, Once, On Fri06/23/24 at 1615, For 1 dose 06/23/2024 5 completed dextrose 15 gram/60 mL oral solution 30 g 30 g, oral, Every 15 min PRN, low blood sugar, hypoglycemia *Patient conscious AND able to drink and swallow safely*, Starting on Fri06/23/24 at 1553 06/23/2024 active losartan (COZAAR) 50 mg tablet Take 1 tablet (50 mg total) by mouth 1 (one) time each day. active ketorolac (TORADOL) injection 15 mg 15 mg, intravenous, Once, On Myriam 06/24/24 at 1115, For 1 dose 06/24/2024 5 completed dextrose (D50W) 50% injection 12.5 g 12.5 g, intravenous, Every 15 min PRN, low blood sugar, moderate hypoglycemia *Patient is Unconscious, NPO, unable to swallow: BG 54 - 69 mg/dl*, Starting on Fri06/23/24 at 1553 06/23/2024 active dorzolamide-timolol (COSOPT) 22.3-6.8 MG/ML ophthalmic solution INSTILL 1 DROP INTO BOTH EYES TWICE A DAY 09/28/2020 active meclizine (ANTIVERT) 12.5 mg tablet Take 1 tablet (12.5 mg total) by mouth. 09/20/2018 active levETIRAcetam (KEPPRA) 500 MG tablet Take 1 tablet (500 mg total) by mouth 2 (two) times a day. 08/13/2022 active dicyclomine (BENTYL) 20 MG tablet Take 1 tablet (20 mg total) by mouth 4 (four) times a day with meals and at bedtime. 06/25/2022 active simethicone (MYLICON) 80 mg chewable tablet CHEW 1 TABLET BY MOUTH TWICE A DAY NEEDED 05/27/2022 active dicyclomine (BENTYL) 20 mg tablet Take 1 tablet (20 mg total) by mouth. 06/25/2022 active amLODIPine (NORVASC) 5 mg tablet Take 1 tablet (5 mg total) by mouth 1 (one) time each day. 08/13/2022 active Senna-Time 8.6 MG tablet TAKE 2 TABLET BY MOUTH DAILY FOR CONSTIPATION WITH PLENTY OF WATER. 04/11/2022 active simvastatin (ZOCOR) tablet 20 mg Take 1 tablet (20 mg total) by mouth every night at bedtime. 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-[address] [facility] AVM (arteriovenous malformation) active 2022-06-[address] [facility] S/P coil embolization of cerebral aneurysm active 2022-08-01 ProblemAct [facility] Immunizations Vaccine Date Source Lot Number Status Influenza Virus Vaccine, H5n 1, A/ (National Stockpile) 02/10/2012 [facility] completed Pneumococcal polysaccharide 23 valent (Pneumovax 23) 2yo and older 04/08/2011 [facility] [id number] com pleted Influenza Virus Vaccine, H5n 1, A/ (National Stockpile) 03/02/2015 [facility] completed Pneumococcal conjugate 13 va lent (Prevnar 13, PCV13) 2mo and older 07/03/2016 [id number] complet ed Zoster Live [facility]/02[facility] [id number] completed Tdap Tetanus diptheria acell ular pertussis (Boostrix; Adacel) 7yo and older 06/16/2014 [facility] [id number] completed Tdap Tetanus diptheria acell ular pertussis (Boostrix; Adacel) 7yo and older 09/17/2018 [facility] UNK completed Pneumococcal polysaccharide 23 valent (Pneumovax 23) 2yo and older 09/03/2017 [facility] [id number] com pleted Td Tetanus diptheria (Tdvax) 7yo and older 10/17/2004 [facility] completed Encounters Encounter Type Encounter Reason Primary Diagnosis Location Date Inpatient Cerebral aneurysm, nonruptured Cerebral aneurysm, nonruptured [facility] 06/23/2024 Ambulatory Cerebral aneurysm, nonruptured Cerebral aneurysm, nonruptured [facility] 03/30/2024 Inpatient Cerebral aneurysm, nonruptured Cerebral aneurysm, [facility] 06/18/2023 Care Team Organization Name Specialty Phone Email Start Date End Da te [facility] NO PHYSICIAN Primary Care 06/23/2024 [facility] 04/03/2024 [facility] 03/30/2024 [facility] 2022 [facility] 09/18/2022 [facility] 09/16/202208/27
--- OUTSIDE RECORDS SUMMARY | 2024-07-08 18:17 | XMS_ITS | Continuity of Care Document ---
Author Organization [facility] Address [address] [place] [id number]- [facility]ly [facility] Name Relationship Address Phone SELAMYOSVANYSUELLEN child Unknown Unavailable DINC, SULIDI child Unknown Unavailable DNC, SULIDI child Unknown Unavailable YANET, PREICILLA child Unknown Unavailable JONNIE HOLT Personal Relationship Unknown Unavai labJONNIE Riggs Personal Relationship Unknown Unavai lable Care Team Providers Care Ratoprinter Name Role Phone Passer Smiley [place] Primary Care Physician Encounter [facility] Date(s): 05/26/24 - 06/25/24 [facility] [address] [place] [address] Encounter Type: Triage Allergies, Adverse Reactions, Alerts Substance Criticality Severity Reaction Reaction Severity Status aspirin Active terbinafine rash Active Immunizations Given and Recorded Vaccine Date Status Refusal Reason SARS-CoV-2 (COVID-19) mRNA-1273 vaccine 04/24/21 R ecorded SARS-CoV-2 (COVID-19) mRNA-1273 vaccine 08/17/20 R ecorded SARS-CoV-2 (COVID-19) mRNA-1273 vaccine 07/20/20 R ecorded tetanus/diphtheria/pertussis, acel(Tdap) 09/17/18 Recorded tetanus/diphtheria/pertussis, acel(Tdap) 06/16/14 Given pneumococcal 23-valent vaccine 09/03/17 Given pneumococcal 23-valent vaccine 1 04/08/11 Given pneumococcal 13-valent vaccine 07/03/16 Given Zoster Vaccine Live 07/02/16 Given influenza virus vaccine, inactivated 03/02/15 Give n influenza virus vaccine, inactivated 2 02/10/12 Gi dale tetanus-diphtheria toxoids (Td) 3 10/17/04 Given 1Admin Note: GIVEN VIS 11/23/96 2Admin Note: VIS10/28/2011 3Admin Note: GIVEN BY [facility]OTHER [facility]. Medications acetaminophen 650 mg oral tablet, extended release 2 tablet, By Mouth, Every 8 hours, PRN NEEDED FOR PAIN, # 100 tablet, 2 Refills, Maintenance, 03/26/24 1:44:00 PM EST, [id number], 168, cm, 03/19/24 14:34:00 EST, Height, 106.2, kg, 03/19/24 14:28:00 EST, Dry Weight Start Date: 03/26/24 Status: Ordered Quantity: 100.0 Unit: tablet Repeat number: 1 Bed Rail Bed Rail, See Instructions, # 1 each, Refills 0, Tot. Refills 0, Maintenance, Dx: Fall Risk, 248:02:00 PM EDT, Supply Start Date: 12/03/23 Status: Ordered Quantity: 1.0 Unit: each Repeat number: 1 brimonidine 0.2% ophthalmic solution 1 drops, Eyes, Both, 2 times a day, # 10 mL, 0 Refills, Maintenance, 02/28/23 8:24:00 PM EDT, Solution, Partial fill upon patient request if the prescription is for a schedule II opioid drug. Start Date: 02/28/23 Status: Ordered Quantity: 10.0 Unit: mL Repeat number: 1 calcium (as carbonate)-vitamin D 500 mg-400 intl units oral tablet See Instructions, TOME DEVYN TABLETA POR BOCA DEVYN VEZ AL ALONSO PARA [place]. TOME CON COMIDA., # 90 tablet, 6 Refills, Maintenance, 01/16/24 5:12:00 PM EDT, [facility] [id number], 90, TOME DEVYN TABLETA POR BOCA DEVYN VEZ AL ALONSO PARA [place]. TOME CON COMIDA., 168, cm, 07/04/23 15:43:00 EST, Height, 98.18, kg, 07/04/23 15:43:00 EST, Dry Weight Start Date: 01/16/24 Status: Ordered Quantity: 90.0 Unit: tablet Repeat number: 1 Carafate 1 gm oral tablet 1 Gm, 1, tablet, By Mouth, 4 times a day, # 120 tablet, Refills 3, Tot. Refills 3, Maintenance, 04/15/24 11:22:00 AM EST, Route to Pharmacy Electronically, [facility]/pharmacy #[id number], Partial fill upon patient request if the prescription is for a schedule II opioid drug., 168, cm, 04/15/24 11:02:00 EST, Height, 106.2, kg, 03/19/24 14:28:00 EST, Dry Weight Start Date: 04/15/24 Status: Ordered Quantity: 120.0 Unit: tablet Repeat number: 4 Indication: Epigastric pain ciclopirox 8% topical solution 1 application, Topically, Daily, for fungus label in gambian, # 6.6 mL, 2 Refills, Maintenance, 03/19/24 3:22:00 PM EST, Solution, [facility]/pharmacy #[id number], Partial fill upon patient request if the prescription is for a schedule II opioid drug., 1 application Topically Daily,Instr:for fungus; label in gambian, 168, cm, 03/19/24 14:34:00 EST, Height, 106.2, kg, 03/19/24 14:28:00 EST, Dry Weight Start Date: 03/19/24 Status: Ordered Quantity: 6.6 Unit: mL Repeat number: 3 diclofenac 1% topical gel = 2 Gm, Topically, 4 times a day, not to exceed 16 grams/day/single joint of lower extremities label in gambian, # 100 Gm, 6 Refills, Maintenance, 09/17/23 6:36:00 PM EDT, Gel, [facility]/pharmacy #[id number], Partial fill upon patient request if the prescription is for a schedule II opioid drug., 168, cm, 07/04/23 15:43:00 EST, Height, 98.18, kg, 07/04/23 15:43:00 EST, Dry Weight Start Date: 09/17/23 Status: Ordered Quantity: 100.0 Unit: g Repeat number: 7 dicyclomine 20 mg oral tablet See Instructions, TOME DEVYN TABLETA POR VIA ORAL CUATRO VECES AL ALONSO FOR ABDOMINAL CRAMPING BEFORE MEALS AND BEFORE BED, # 120 tablet, 1 Refills, Maintenance, 05/05/24 1:46:00 PM EST, [facility], 168, cm, 04/15/24 11:02:00 EST, Height, 106.2, kg, 03/19/24 14:28:00 EST, Dry Weight Start Date: 05/05/24 Status: Ordered Quantity: 120.0 Unit: tablet Repeat number: 1 Digital Home BP monitor Digital Home BP monitor, See Instructions, # 1 each, Refills 0, Tot. Refills 0, Maintenance, Dx: HTN, l10, 07/04/23 4:31:00 PM EST, Supply Start Date: 07/04/23 Status: Ordered Quantity: 1.0 Unit: each Repeat number: 1 dorzolamide-timolol 2.23%-0.68% ophthalmic solution INSTILL 1 DROP INTO BOTH EYES TWICE A DAY Start Date: 09/28/20 Status: Ordered Repeat number: 1 GaviLAX oral powder for reconstitution = 17 Gm, By Mouth, Daily, for 30 days, # 510 Gm, 3 Refills, Acute 08/13/24 11:27:00 AM EDT, 04/15/2411:27:00 AM EST, [facility]/pharmacy #[id number], Partial fill upon patient request if the prescription is for aschedule II opioid drug., 17 Gm By Mouth Daily,x30 days, 168, cm, 04/15/24 11:02:00 EST, Height, 106.2, kg, 03/19/24 14:28:00 EST, Dry Weight Start Date: 04/15/24 Stop Date: 08/13/24 Status: Ordered Quantity: 510.0 Unit: g Repeat number: 4 Indication: Constipation, unspecified latanoprost 0.005% ophthalmic solution 1 drops, Daily before dinner, 0 Refills, Maintenance, 12/17/17 7:53:21 AM EDT Start Date: 12/17/17 Status: Ordered Repeat number: 1 levETIRAcetam 500 mg oral tablet See Instructions, NEYMAR DEVYN TABLETA POR VIA ORAL DOS VECES AL ALONSO, # 180 tablet, 1 Refills, Maintenance, 05/20/24 8:35:00 AM EST, [facility]/pharmacy #[id number], 168, cm, 04/15/24 11:02:00 EST, Height, 106.2, kg, 03/19/24 14:28:00 EST, Dry Weight Start Date: 05/20/24 Status: Ordered Quantity: 180.0 Unit: tablet Repeat number: 2 losartan 50 mg oral tablet 50 mg, 1, tablet, By Mouth, Daily, for blood pressure dosage adjustment label in gambian, # 90 tablet, Refills 1, Tot. Refills 1, Maintenance, 03/19/24 3:22:00 PM EST, [id number] Partial fill upon patient request if the prescription is for a schedule II opioid drug., 168, cm, 03/19/24 14:34:00 EST, Height, 106.2, kg, 03/19/24 14:28:00 EST, Dry Weight Start Date: 03/19/24 Status: Ordered Quantity: 90.0 Unit: tablet Repeat number: 2 meclizine 12.5 mg oral tablet 1 tablet, By Mouth, 3 times a day, PRN NEEDED FOR DIZZINESS, # 30 tablet, 3 Refills, Maintenance, 05/21/24 11:33:00 AM EST, [facility]/pharmacy #[id number], 168, cm, 04/15/24 11:02:00 EST, Height, 106.2, kg, 03/19/24 14:28:00 EST, Dry Weight Start Date: 05/21/24 Status: Ordered Quantity: 30.0 Unit: tablet Repeat number: 4 Metamucil 3.4 gm/5.2 gm oral powder for reconstitution = 1.7 Gm, By Mouth, Daily, for 30 days, May increase to two or three times a day as needed., # 283 Gm, 2 Refills, Acute 07/26/24 11:59:00 AM EDT, 04/27/24 11:59:00 AM EST, REC Powder, [facility]/pharmacy #[id number], Partial fill upon patient request if the prescription is for a schedule II opioid drug., 168, cm, 04/15/24 11:02:00 EST, Height, 106.2, kg, 03/19/24 14:28:00 EST, Dry Weight Start Date: 04/27/24 Stop Date: 07/26/24 Status: Ordered Quantity: 283.0 Unit: g Repeat number: 3 pantoprazole 40 mg oral delayed release tablet 1 tablet = 40 mg, By Mouth, 2 times a day, FOR ABDOMINAL PAIN LABEL IN SAMI, # 180 tablet, 1 Refills, Maintenance, 01/30/24 3:14:00 PM EDT, 168, cm, 01/30/24 14:50:00 EDT, Height, 105.22, kg, 01/30/24 14:44:00 EDT, Dry Weight Start Date: 01/30/24 Status: Ordered Quantity: 180.0 Unit: tablet Repeat number: 2 psyllium 3.4 g/5.4 g oral powder for reconstitution See Instructions, PRN as needed for constipation, 1.7 Gm By Mouth daily. May increase to twice daily as needed., # 102 Gm, 0 Refills, Maintenance, 04/15/24 11:27:00 AM EST, REC Powder, [facility]/pharmacy #[id number], Partial fill upon patient request if the prescription is for a schedule II opioid drug., 168, cm, 04/15/24 11:02:00 EST, Height, 106.2, kg, 03/19/24 14:28:00 EST, Dry Weight Start Date: 04/15/24 Status: Ordered Quantity: 102.0 Unit: g Repeat number: 1 Indication: Constipation, unspecified Senna-Time 8.6 mg oral tablet See Instructions, TOME DOS TABLETAS POR VIA ORAL TODOS [place] FOR CONSTIPATION WITH PLENTY OF WATER, # 180 tablet, 6 Refills, Maintenance, 12/04/23 11:17:00 AM EDT, [id number], 168, cm, 07/03/2414:43:00 EST, Height, 98.18, kg, 07/04/23 15:43:00 EST, Dry Weight Start Date: 12/04/23 Status: Ordered Quantity: 180.0 Unit: tablet Repeat number: 1 simvastatin 20 mg oral tablet 20 mg, 1, tablet, By Mouth, Daily at bedtime, for cholesterol label in gambian, # 90 tablet, Refills 1, Tot. Refills 1, Maintenance, 03/19/24 3:22:00 PM EST, Route to Pharmacy Electronically, [facility]/pharmacy #[id number], Partial fill upon patient request if the prescription is for a schedule II opioid drug., 168, cm, 03/19/24 14:34:00 EST, Height, 106.2, kg, 03/19/24 14:28:00 EST, Dry Weight Start Date: 03/19/24 Status: Ordered Quantity: 90.0 Unit: tablet Repeat number: 2 zolpidem 10 mg oral tablet 1 tablet = 10 mg, By Mouth, Daily at bedtime, for sleep label in gambian, # 30 tablet, 1 Refills, Maintenance, 06/17/24 10:57:00 AM EST, [id number], Partial fill upon patient request if the prescription is for a schedule II opioid drug., 168, cm, 05/21/24 11:33:00 EST, Height, 106.2, kg, 03/19/24 14:28:00 EST, Dry Weight Start Date: 06/17/24 Status: Ordered Quantity: 30.0 Unit: tablet Repeat number: 2 Problem List Condition Confirmation Course Effective Dates Status H ealth Status Informant AD - Atopic dermatitis Confirmed 02/24/08 Active Adult-onset obesity Confirmed 05/17/10 Active Anogenital lichen sclerosus Confirmed 09/21/08 Active 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 Benign essential hypertension Confirmed Active Benign paroxysmal vertigo Confirmed Active Obesity (BMI 30-39.9) Confirmed Active Obesity (BMI 30-39.9) Confirmed Active Cerebral arteriovenous malformation Confirmed 06/30/22 Active Chronic back pain Confirmed Active Chronic constipation Confirmed 01/05/09 Active Depression Confirmed 03/09/07 Active Diverticulosis Confirmed 01/30/10 Active Dyspepsia Confirmed 03/18/13 Active Fibromyalgia syndrome Confirmed 01/21/13 Active GERD (gastroesophageal reflux disease) Confirmed Active Abdominal pain, chronic, generalized Confirmed Active Hyperglycemia Confirmed 05/17/10 Active Hyperlipidemia Confirmed 08/12/07 Active Hyperlipidemia Confirmed Active Inguinal Hernia Confirmed 12/18/09 Active Insomnia Confirmed 12/23/07 Active Lateral Epicondylitis Confirmed 04/08/12 Active LUQ pain Confirmed Active Low back pain Confirmed 03/09/07 Active Nonspecific pain in the neck region Confirmed 06/21/09 Active Nonspecific pain in the neck region Confirmed 06/29/09 Active Onychomycosis Confirmed 06/03/13 Active Knee osteoarthritis Confirmed Active Bilateral chronic knee pain Confirmed Active *[id number] Harpooner Gunjan Vidal Confirmed Active Severe obesity (BMI 35.0-39.9) with comorbidity Confirmed Active Shoulder impingement syndrome Confirmed 07/31/09 Active Stress urinary incontinence Confirmed 06/08/08 Active Transient cerebral ischemia Confirmed 06/29/22 Active Arteriovenous malformation (AVM) Confirmed Active Vertigo Confirmed Active Social History Social History Type Response Smoking Status Never smoker entered on: 09/03/17 Sex Sex Representation Female (finding) Patient Care team information Care Team Personnel Name: Osman Gibbons MD Position: [facility] Renal MD Member Role: Lifetime Consulting Physician Address: [address] [place] [address] [address] [place] [address]- [place] Telecom: Name: Sharon Grossman RN Position: [facility] KRYSTIAN No Tools Member Role: Primary Care Nurse Name: Alessandra Low LPN Position: [facility] RN Member Role: Primary Care Nurse Name: Sharita Gonsales RN Position: [facility] RN Member Role: Primary Care Nurse Name: Smiley Scott Position: [facility] PCO Associate Professional Member Role: PCP Address: [address] [place] [phone]- Telecom: Care Team Related Persons Name: ROSSANA LOPEZ Name: SUELLEN DOSS Insurance Providers Guarantor name: JONNIE HOLT Health Plan Information #: 1 Payer: NA Member Number: NA Policy Number: NA Group Number: NA
--- OUTSIDE RECORDS SUMMARY | 2024-07-08 18:17 | XMS_ITS | Encounter Summary ---
Author Organization [facility] Address [address] [place] [address] Care Team Providers Care Wood Drill Operator Name Role Phone Unavailable Primary Care Provider Unavailabl e Encounter Details Date Type Department Care Team (Late st Contact Info) Description 06/16/2024 Telephone [facility] [address] [place] [phone] Jackson Guan MD [address] [facility] [address] [place], [place] [id number] Social History Tobacco Use Types Packs/Day Years Used Date Smoking Tobacco: Never Smokeless Tobacco: Never Alcohol Use Standard Drinks/Week Comments Not Currently 0 (1 standard drink = 0.6 oz pur e alcohol) Comments Unknown Sex and Gender Information Value Date Recorded Sex Assigned at Female 05/17/2024 8:52 AM EST Legal Sex Female 3:32 PM EST Gender Identity Female 05/17/2024 8:52 AM EST Sexual Orientation Not on file documented as of this encounter Progress Notes * Winsome Chan - 06/17/2024 11:48 AM EST Not our patient error documented in this encounter Plan of Treatment Not on file documented as of this encounter Visit Diagnoses Not on filedocumented in this encounter
--- OUTSIDE RECORDS SUMMARY | 2024-07-08 18:17 | XMS_ITS | Continuity of Care Document ---
Author Organization [facility] Address [address] [place] [address]- Care Team Providers Care Steward/Stewardess Club Car Name Role Phone Passer Smiley [place] Primary Care Physician Encounter [facility] Date(s): 05/26/24 - 06/25/24 [facility] [place] [address] [place] [id number]- Encounter Type: Triage Allergies, Adverse Reactions, Alerts [...] 2 Refills, Maintenance, 03/26/24 1:44:00 PM EST, [facility], 168, cm, 03/19/24 14:34:00 EST, Height, 106.2, kg, 03/19/24 14:28:00 EST, Dry Weight Start Date: 03/26/24 Status: Ordered Quantity: 100.0 Unit: tablet Repeat number: 1 Bed Rail Bed Rail, See Instructions, # 1 each, Refills 0, Tot. Refills 0, Maintenance, Dx: Fall Risk, :02:00 PM EDT, Supply Start Date: 12/03/23 Status: [...] 6 Refills, Maintenance, 01/16/24 5:12:00 PM EDT, [facility], 90, TOME DEVYN TABLETA POR BOCA DEVYN [...] 11:22:00 AM EST, Route to Pharmacy Electronically, [facility]/pharmacy #[id number], Partial fill upon patient request if the prescription is for a schedule II opioid drug., 168, cm, 04/15/24 11:02:00 EST, Height, 106.2, kg, 03/19/24 14:28:00 EST, Dry Weight Start Date: 04/15/24 Status: Ordered Quantity: 120.0 Unit: tablet Repeat number: 4 Indication: Epigastric pain ciclopirox 8% topical solution 1 application, Topically, Daily, for fungus label in honduran, # 6.6 mL, 2 Refills, Maintenance, 03/19/24 3:22:00 PM EST, Solution, [facility]/pharmacy #[id number], Partial fill upon patient request if the prescription is for a schedule II opioid drug., 1 application Topically Daily,Instr:for fungus; label in honduran, 168, cm, 03/19/24 14:34:00 EST, Height, 106.2, kg, 03/19/24 14:28:00 EST, Dry Weight Start Date: 03/19/24 Status: Ordered Quantity: 6.6 Unit: mL Repeat number: 3 diclofenac 1% topical gel = 2 Gm, Topically, 4 times a day, not to exceed 16 grams/day/single joint of lower extremities label in honduran, # 100 Gm, 6 Refills, Maintenance, 09/17/23 6:36:00 PM EDT, Gel, [facility]/pharmacy #[id number], Partial fill upon patient request if [...] 1 Refills, Maintenance, 05/05/24 1:46:00 PM EST, [facility], 168, cm, 04/15/24 11:02:00 EST, Height, 106.2, [...] 08/13/24 11:27:00 AM EDT, 04/15/2411:27:00 AM EST, [facility]/pharmacy #[id number], Partial fill upon patient request if [...] levETIRAcetam 500 mg oral tablet See Instructions, NORRISE DEVYN TABLETA POR VIA ORAL DOS VECES AL ALONSO, # 180 tablet, 1 Refills, Maintenance, 05/20/24 8:35:00 AM EST, [id number], 168, cm, 04/15/24 11:02:00 EST, Height, 106.2, kg, 03/19/24 14:28:00 EST, Dry Weight Start Date: 05/20/24 Status: Ordered Quantity: 180.0 Unit: tablet Repeat number: 2 losartan 50 mg oral tablet 50 mg, 1, tablet, By Mouth, Daily, for blood pressure dosage adjustment label in honduran, # 90 tablet, Refills 1, Tot. Refills 1, Maintenance, 03/19/24 3:22:00 PM EST, [id number] fill upon patient request if [...] 3 Refills, Maintenance, 05/21/24 11:33:00 AM EST, [facility]/pharmacy #[id number], 168, cm, 04/15/24 11:02:00 EST, Height, [...] EDT, 04/27/24 11:59:00 AM EST, REC Powder[id number] Partial fill upon patient request if [...] a day, FOR ABDOMINAL PAIN LABEL IN [place], # 180 tablet, 1 Refills, Maintenance, 01/30/24 [...] Maintenance, 04/15/24 11:27:00 AM EST, REC Powder, [facility]/pharmacy #[id number], Partial fill upon patient request if [...] 6 Refills, Maintenance, 12/04/23 11:17:00 AM EDT, [facility] 83[facility], 168, cm, 07/03/2414:43:00 EST, Height, 98.18, kg, 07/04/23 15:43:00 EST, Dry Weight Start Date: 12/04/23 Status: Ordered Quantity: 180.0 Unit: tablet Repeat number: 1 simvastatin 20 mg oral tablet 20 mg, 1, tablet, By Mouth, Daily at bedtime, for cholesterol label in honduran, # 90 tablet, Refills 1, Tot. Refills 1, Maintenance, 03/19/24 3:22:00 PM EST, Route to Pharmacy Electronically, [facility]/pharmacy #[id number], Partial fill upon patient request if the prescription is for a schedule II opioid drug., 168, cm, 03/19/24 14:34:00 EST, Height, 106.2, kg, 03/19/24 14:28:00 EST, Dry Weight Start Date: 03/19/24 Status: Ordered Quantity: 90.0 Unit: tablet Repeat number: 2 zolpidem 10 mg oral tablet 1 tablet = 10 mg, By Mouth, Daily at bedtime, for sleep label in honduran, # 30 tablet, 1 Refills, Maintenance, 06/17/24 10:57:00 AM EST, 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 Confirmed Active Severe obesity (BMI [...] Care team information Care Team Personnel Name: Shai RODRÍGUEZ, Osman Hernández Position: [facility] Renal MD Member Role: Lifetime Consulting Physician Address: [address] [place] [address] [address] [place] [address]- Telecom: Name: Sharon Grossman RN Position: [facility] FIBERGLASS AUTOBODY REPAIRER No Tools Member Role: Primary Care Nurse Name: Alessandra Low LPN Position: [facility] RN Member Role: Primary Care Nurse Name: Sharita Gonsales RN Position: [facility] RN Member Role: Primary Care Nurse Name: Smiley Scott Position: [facility] PCO Associate Professional Member Role: PCP Address: [address] [place] [address]- Telecom: Care Team Related Persons Name: ROSSANA LOPEZ Name: SUELLEN DOSS Insurance Providers Guarantor name: JONNIE HOLT Health Plan Information #: 1 Payer: NA Member Number: NA Policy Number: NA Group Number: NA
--- OUTSIDE RECORDS SUMMARY | 2024-07-08 18:17 | XMS_ITS | Data Portability ---
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 I have reviewed and agree with the Assessment and Plan as documented by the Field Geologist. Patient given the opportunity to ask questions. Advised, that emergent transfer to the ER is indicated in her best interest for further work-up and treatment, given her description of chest pain and an abnormal EKG without old for comparison while pain-free along with a lower blood pressure than normal? family history of what sounds like a ruptured aortic aneurysm. Patient initially refused -son and daughter involved in the conversation by the medic and after extensive discussion with pros and cons she agreed to be transferred to [facility]. Report called by me to [facility] ER expect line [email or web address] Not available 03/01/2023 15:41:54 06/23/2023 06/23/2023 I provided real -time medical direction via phone for this encounter, and was available for additional phone based assistance as needed. I have reviewed and agree with the Assessment and Plan as documented by the Field Geologist. We discussed the diagnostic uncertainty of home visits and the risk associated with this. In this case the patient and I felt this to be an acceptable and reasonable amount of risk given the benefit of avoiding an ED visit. The patient given the opportunity to ask questions. Advised if develops CP/severe SOB/turning blue/severe abdominal or flank pain /uncontrolled n/v/d or black/bloody emesis or stool/ AMS/ syncope/ hi fever to call 911- verbalized understanding of instructions [email or web address] Not available 06/23/2023 11:16:30 12/26/2023 12/26/2023 I provided real -time medical direction via phone for this encounter and was available for additional phone-based assistance as needed. I have reviewed and agree with the Assessment and Plan as documented by the Field Geologist. Patient given the opportunity to ask questions. Our service contacted for an assessment of: Lump or mass of abdomen As per above, patient with continued abdominal pain mostly related to what she believes is a mass on her abdomen. She denies any ongoing constipation or lack of bowel movement. Denies any chest pain or shortness of breath. She is having bowel movements she is passing gas. P.o. intake is about the same. States she is frustrated with multiple complaints of this to her team. Per embedder on the scene, vital signs are stable and patient is afebrile. Per report the patient has abdominal hernia that is not incarcerated and easily reproducible. Impression: Ventral hernia Plan: Contact patient's team for evaluation. Primarily these are not surgically repaired however patient and team may choose to do so depending on patient's preference. Allergies: Reviewed PCP f/u: Please evaluate for ventral hernia. We discussed the diagnostic uncertainty of home visits and the risk associated with this. In this case, the patient and I felt this to be an acceptable and reasonable amount of risk given the benefit of avoiding an ED visit. We discussed the need to seek care urgently/emergentl y in the setting of any new or worsening serious symptoms, particularly fever chills lightheadedness altered mental status [email or web address] Not available 12/26/2023 21:43:07 Plan of Treatment Reminders Order Date Submit Date Provider Last Modified By Organization Details Last Modified Time Details Appointments None recorded. Lab culture, urine 2023 024 BOONE [facility] (Centralized Electronic Ordering - All Locations), Patient Can Go To The Location Of Their Choice, [id number] 4 07:45:34 urinalysis, dipstick 2023 024 [email or web address] 0 [facility], [address] [place] [address], [id number], 4 11:16:11 BMP, serum or plasma 2022 023 [email or web address] 0 [facility], [address] [place] [address], [phone], 3 15:43:50 Referral None recorded. Procedures None recorded. Surgeries None recorded. Imaging electrocard iogram 2022 023 [email or web address] 0 [facility], [address] [place] [address], [id number], 3 15:43:50 Medication Orders Bactrim DS 800 mg-160 mg tablet 2023 024 [facility] #[id number], [address] [place], [address], 4 11:19:12 sulfamethox azole 800 mg-trimetho prim 160 mg tablet 2023 024 [email or web address] 0 Not available 4 11:19:07 Pyridium 200 mg tablet 2023 024 [facility] #[id number], [address] [place], [address], 4 11:19:12 Patient TargetsNo targets recorded. Patient InstructionsNo instructions recorded. Reason for Referral None Reported. Results Created Date Observation Date Name Description Value Unit Range Abnormal Flag Note LastModifiedBy Organization Detail LastModifiedTime 03/01/2003/01/2023 BMP, serum or plasm a BUN 13 Not Available [facility] - [facility] [address], [address], 02/28/2023 12:41:49 03/01/2003/01/2023 BMP, serum or plasm a Ca Ionize d calciu m 1.27 Not Available [facility] - [facility] [address] [place] [address], [phone], 02/28/2023 12:41:49 03/01/2003/01/2023 BMP, serum or plasm a CI- 106 Not Available Main - [facility] [address], [address], 02/28/2023 12:41:49 03/01/20 23 03/01/2023 BMP, serum or plasm a CRE 0.8 Not Available Main - [facility] [address], [address], 02/28/2023 12:41:49 03/01/20 23 03/01/2023 BMP, serum or plasm a GLU Nonfas ting 141 Not Available Main - [address], [address], 02/28/2023 12:41:49 03/01/20 23 03/01/2023 BMP, serum or plasm a K+ 3.7 Not Available Main - [facility] [address], [address], 02/28/2023 12:41:49 03/01/20 23 03/01/2023 BMP, serum or plasm a Na+ 139 Not Available Main - [facility] [address], [address], 02/28/2023 12:41:49 03/01/20 23 03/01/2023 BMP, serum or plasm a tCO2 18 Not Available Main - [facility] [address], [address], 02/28/2023 12:41:49 06/23/19 24 06/24/2023 URINE CULTU RE specimen description URINE Not Available [facility] (Central[facility] Ordering - All Locations) Patient Can Go To The Location Of Their Choice, 06/26/2023 07:45:34 06/23/19 24 06/24/2023 URINE CULTU RE special requests NONE Not Available [facility] (Centralized Electronic Ordering - All Locations) Patient Can Go To The Location Of Their Choice, 06/26/2023 07:45:34 06/23/19 24 06/26/2023 URINE CULTU RE culture abnormal 50-10 0,000 COL/M L ESCHE RADAMES A COLI These AST resul ts were perfo rmed on the Vitek 2 ID and AST syste m Not Available [facility] (Centralized Electronic Ordering - All Locations) Patient Can Go To The Location Of Their Choice, 06/26/2023 07:45:34 06/23/1906/26/2023 URINE CULTU RE report status FINAL 2023 Not Available [facility] (Centralized Electronic Ordering - All Locations) Patient Can Go To The Location Of Their Choice, 06/26/2023 07:45:34 06/23/1906/26/2023 URINE CULTU RE organism ORGAN ISM 50-10 0,000 COL/M L ESCHE RADAMES A COLI These AST resul ts were perfo rmed on the [employer] 2 ID and AST syste m Not Available [facility] (Centralized Electronic Ordering - All Locations) Patient Can Go To The Location Of Their Choice, 06/26/2023 07:45:34 06/23/1906/26/2023 URINE CULTU RE method METHOD MIN. INHIB. CONC. (MCG/M L) Not Available [facility] (Centralized Electronic Ordering - All Locations) Patient Can Go To The Location Of Their Choice, 06/26/2023 07:45:34 06/23/1906/26/2023 URINE CULTU RE ampicillin AMPICI LLIN SUSCEP TIBLE susceptib le Not Available [facility] (Centralized Electronic Ordering - All Locations) Patient Can Go To The Location Of Their Choice, 06/26/2023 07:45:34 06/23/1906/26/2023 URINE CULTU RE ampicillin/s ulbactam AMPICI LLIN/S ULBACT AM SUSCEP TIBLE susceptib le Not Available [facility] (Centralized Electronic Ordering - All Locations) Patient Can Go To The Location Of Their Choice, 06/26/2023 07:45:34 06/23/1906/26/2023 URINE CULTU RE cefazolin CEFAZO MERCEDES SUSCEP TIBLE susceptib le Not Available [facility] (Centralized Electronic Ordering - All Locations) Patient Can Go To The Location Of Their Choice, 06/26/2023 07:45:34 06/23/1906/26/2023 URINE CULTU RE cefepime CEFEPI ME SUSCEP TIBLE susceptib le Not Available [facility] (Centralized Electronic Ordering - All Locations) Patient Can Go To The Location Of Their Choice, 06/26/2023 07:45:34 06/23/19 24 06/26/2023 URINE CULTU RE ceftriaxone CEFTRI AXONE SUSCEP TIBLE susceptib le Not Available [facility] (Centralized Electronic Ordering - All Locations) Patient Can Go To The Location Of Their Choice, 06/26/2023 07:45:34 06/23/19 24 06/26/2023 URINE CULTU RE ciprofloxaci n CIPROF LOXACI N SUSCEP TIBLE susceptib le Not Available [facility] (Centralized Electronic Ordering - All Locations) Patient Can Go To The Location Of Their Choice, 06/26/2023 07:45:34 06/23/19 24 06/26/2023 URINE CULTU RE ertapenem ERTAPE NEM SUSCEP TIBLE susceptib le Not Available [facility] (Centralized Electronic Ordering - All Locations) Patient Can Go To The Location Of Their Choice, 06/26/2023 07:45:34 06/23/19 24 06/26/2023 URINE CULTU RE gentamicin GENTAM ICIN SUSCEP TIBLE susceptib le Not Available [facility] (Centralized Electronic Ordering - All Locations) Patient Can Go To The Location Of Their Choice, 06/26/2023 07:45:34 06/23/19 24 06/26/2023 URINE CULTU RE levofloxacin LEVOFL OXACIN SUSCEP TIBLE susceptib le Not Available [facility] (Centralized Electronic Ordering - All Locations) Patient Can Go To The Location Of Their Choice, 06/26/2023 07:45:34 06/23/19 24 06/26/2023 URINE CULTU RE nitrofuranto in NITROF URANTO IN SUSCEP TIBLE susceptib le Not Available [facility] (Centralized Electronic Ordering - All Locations) Patient Can Go To The Location Of Their Choice, 06/26/2023 07:45:34 06/23/19 24 06/26/2023 URINE CULTU RE piperacillin /tazobactam PIPERA CILLIN /TAZOB AC SUSCEP TIBLE susceptib le Not Available [facility] (Centralized Electronic Ordering - All Locations) Patient Can Go To The Location Of Their Choice, 06/26/2023 07:45:34 06/23/19 24 06/26/2023 URINE CULTU RE trimeth/sulf amethox TRIMET H/SULF AMETHO X SUSCEP TIBLE susceptib le Not Available [facility] (Centralized Electronic Ordering - All Locations) Patient Can Go To The Location Of Their Choice, [id number] 06/26/2023 07:45:34 06/23/19 24 06/23/2023 urina lysis , dipst ick Leukocytes 2+ Not Available [facility] [address] [place] [address], [address], 06/23/2023 11:14:27 06/23/19 24 06/23/2023 urina lysis , dipst ick Nitrite positi ve Not Available [facility] - [facility] [address] [place] [address], [address], 06/23/2023 11:14:27 06/23/19 24 06/23/2023 urina lysis , dipst ick Urobilinogen NEG Not Available [facility] - [facility] [address] [place] [address], [address], 06/23/2023 11:14:27 06/23/19 24 06/23/2023 urina lysis , dipst ick Protein 3+ Not Available [facility] - [facility] [address] [place] [address], [phone], 06/23/2023 11:14:27 06/23/19 24 06/23/2023 urina lysis , dipst ick pH 5 Not Available [facility] - [facility] [address] [place] [address], [phone], 06/23/2023 11:14:27 06/23/19 24 06/23/2023 urina lysis , dipst ick Blood 3+ Not Available [facility] - [facility] [address] [place] [address], [phone], 06/23/2023 11:14:27 06/23/19 24 06/23/2023 urina lysis , dipst ick Specific [place] 1.015 Not Available [facility] - [facility] [address] [place] [address], [phone], 06/23/2023 11:14:27 06/23/19 24 06/23/2023 urina lysis , dipst ick Ketone NEG Not Available [facility] - [facility] [address] [place] [address], [address], 06/23/2023 11:14:27 06/23/19 24 06/23/2023 urina lysis , dipst ick Bilirubin NEG Not Available [facility] - [facility] [address] [place] [address], [address], 06/23/2023 11:14:27 06/23/19 24 06/23/2023 urina lysis , dipst ick Glucose NEG Not Available [facility] [address] [place] [address], [phone], 06/23/2023 11:14:27 06/23/19 24 06/23/2023 urina lysis , dipst ick Appearance CLOUDY DARK YELLOW Not Available [facility] [address] [place] [address], [address], 06/23/2023 11:14:27 02/29/20 23 03/01/2023 elect ez venegas am No observ ation record ed. [email or web address] [facility] [address] [place] [address], [phone], 03/01/2023 15:43:47 Result Notes None recorded. Procedures Surgical History None recorded. Imaging Results Imaging Date Name Status LastModified by Organization Details LastModified Time 03/01/2023 electrocardiogram completed [email or web address] [facility] [address] [place] [address], [phone], 03/01/2023 15:43:47 Procedure Notes None recorded. Medical Equipment None Reported. Allergies Allergen ID Allergen Name Allergen Category Reaction Reaction Severity Criticality Documentation Date Start Date Code Code System Note Provider Name and Address Organization Details Recorded Time 3702 aspirin medicatio n Not available Not available Not available 02/28/2023 1191 RxNorm Not Available [facility] - production 4 03:48:00 3703 terbinafi ne medicatio n Not available Not available Not available 02/28/2023 09203 RxNorm Breanna Astorga MD [address] [place] [address],[address], [place], [phone], [facility] - [employer] 12:42:09 Medications Name Sig Start Date Stop Date Status Note LastModified by Organization Details LastModified Time latanoprost 0.005 % eye drops PONGA DEVYN GOTA EN LOS DOS OJOS AL ACOSTARSE active Not Available Not Available No t Available acetaminophe n 325 mg tablet TOME DOS TABLETAS POR V A ORAL CUATRO VECES AL D A CUANDO SEA NECESARIO PARA EL DOLOR POR 5 D active Not Available Not Available No t Available levetiraceta m 500 mg tablet TOME DEVYN TABLETA POR V A ORAL DOS VECES AL D A active Not Available Not Available No t Available prazosin 1 mg capsule TOME 1 C PSULA POR V A ORAL AL ACOSTARSE FOR NIGHTMARES active Not Available Not Available N ot Available senna 8.6 mg tablet TOME DOS TABLETAS POR V A ORAL TODOS LOS D FOR CONSTIPATIO N WITH PLENTY OF WATER active Not Available Not Available No t Available phenazopyrid ine 200 mg tablet TOME DEVYN TABLETA HILDA VECES AL D A POR 3 D * NOT COVERED active Not Available Not Available Not Available meclizine 12.5 mg tablet TOME DEVYN TABLETA POR V A ORAL HILDA VECES AL D A CUANDO SEA NECESARIO FOR DIZZINESS active Not Available Not Available No t Available clopidogrel 75 mg tablet active Not Available Not Available Not Available amlodipine 5 mg tablet TOME DEVYN TABLETA POR V A ORAL TODOS LOS D FOR BLOOD PRESSURE active Not Available Not Available No t Available sulfamethoxa zole 800 mg-trimethop rim 160 mg tablet TAKE 1 TABLET EVERY 12 HOURS BY ORAL ROUTE FOR 6 DAYS. active Not Available Not Available Not Available aspirin 81 mg tablet,delay ed release TOME DEVYN TABLETA TODOS LOS D active Not Available Not Available No t Available acetaminophe n ER 650 mg tablet,exten ded release TAKE 2 TABLETS ORALLY EVERY 8 HOURS NEEDED FOR PAIN active Not Available Not Available No t Available famotidine 20 mg tablet TOME DEVYN TABLETA POR VIA ORAL DOS VECES AL ALONSO PARA ACIDO active Not Available Not Available No t Available dicyclomine 20 mg tablet TOME DEVYN TABLETA POR V A ORAL CUATRO VECES AL D A FOR ABDOMINAL CRAMPING BEFORE MEALS AND BEFORE BED active Not Available Not Available N ot Available amlodipine 10 mg tablet TOME DEVYN TABLETA TODOS LOS D FOR BLOOD PRESSURE active Not Available Not Available No t Available benzonatate 100 mg capsule TOME 1 C PSULA POR V A ORAL HILDA VECES AL D A FOR 7 DAYS active Not Available Not Available No t Available pantoprazole 40 mg tablet,delay ed release TOME DEVYN TABLETA POR V A ORAL TODOS LOS D active Not Available Not Available No t Available simvastatin 20 mg tablet TOME 1 TABLETA ORALMENTE TODOS LOS BORDEN AL ACOSTARSE PARA LA PRESION active Not Available Not Available No t Available losartan 25 mg tablet TOME DEVYN TABLETA TODOS LOS D active Not Available Not Available No t Available brimonidine 0.2 % eye drops PONGA DEVYN GOTA EN LOS DOS OJOS DOS VECES AL D A active Not Available Not Available No t Available Banophen 25 mg capsule TAKE 1 CAPSULE BY MOUTH TWICE A DAY FOR MOTION SICKNESS active Not Available Not Available No t Available dorzolamide 22.3 mg-timolol 6.8 mg/mL eye drops INSTILL 1 DROP EN LOS DOS OJOS DOS VECES AL ALONSO active Not Available Not Available No t Available lisinopril 5 mg tablet TOME DEVYN TABLETA TODOS LOS D FOR BLOOD PRESSURE active Not Available Not Available No t Available zolpidem 10 mg tablet TOME DEVYN TABLETA POR V A ORAL TODOS LOS D AL ACOSTARSE active Not Available Not Available No t Available simethicone 80 mg chewable tablet CHEW 1 TABLET BY MOUTH TWICE A DAY NEEDED FOR GAS PAIN active Not Available Not Available No t Available nitrofuranto in monohydrate/ macrocrystal s 100 mg capsule TOME DEVYN C PSULA DOS VECES AL D A POR 7 D FOR URINE INFECTION active Not Available Not Available No t Available lactulose 10 gram/15 mL oral solution TAKE 15ML BY MOUTH DAILY NEEDED FOR CONSTIPATIO N, TAKE WITH PLENTY OF FLUIDS active Not Available Not Available No t Available Calcium 500 With D 500 mg-10 mcg (400 unit) tablet TOME DEVYN TABLETA POR BOCA DEVYN VEZ AL ALONSO PARA LOS HUESOS. TOME CON COMIDA. active Not Available Not Available No t Available diclofenac 1 % topical gel APPLY 2 GM TOPICALLY 4 TIMES A DAY NOT TO EXCEED 16 GRAMS/DAY/S DALJIT JOINT OF LOWER EXTREMITIES active Not Available Not Available Not Available Vitals Date Recorded Body weight Body mass index (BMI) Systolic blood pressure Diastolic blood pressure Provider Name and Address Organization Details Last Updated DateTime 02/28/2023 61795.14 g 35.2 kg/m2 98 mm[Hg] 58 mm[Hg] Breanna Astorga MD [address] [place] [address],[address] [place] [address], [place], [address] , [place] - [employer] 02/28/2023 12:38:54 Date Recorded Respiratory rate Body temperature Heart rate Body height Oxygen saturation Oxygen saturation in Arterial blood by Pulse oximetry Systolic blood pressure Diastolic blood pressure Provider Name and Address Organization Details Last Updated DateTime 3 16 /min 98 [degF] 60 /min 167.64 cm 96 % 96 % 108 mm[Hg] 62 mm[Hg] Not Available [employer] 3 12:37:28 Date Recorded Oxygen saturation Oxygen saturation in Arterial blood by Pulse oximetry Heart rate Body height Body weight Respiratory rate Body temperature Systolic blood pressure Diastolic blood pressure Provider Name and Address Organization Details Last Updated DateTime 4 97 % 97 % 64 /min 165.1 cm 39672.4 g 16 /min 97.4 [degF] 148 mm[Hg] 72 mm[Hg] Not Available [employer] 4 11:12:13 Date Recorded Body temperature Body height Oxygen saturation Oxygen saturation in Arterial blood by Pulse oximetry Respiratory rate Heart rate Body weight Systolic blood pressure Diastolic blood pressure Provider Name and Address Organization Details Last Updated DateTime 4 97.4 [degF] 167.64 cm 99 % 99 % 20 /min 64 /min 48030.0 56 g 154 mm[Hg] 82 mm[Hg] Not Available [employer] 4 20:59:58 Social History None recorded. Functional Status None recorded. Mental Status None recorded. Family History Nothing Reported. Medical History No medical history recorded. Gynecological HistoryNo gynecological history recorded. Obstetrics History GPAL:G 0 P 0 0 0 0 Past Encounters Encounter ID Performer Location Encounter Start Date Encounter Closed Date Diagnosis/Indication Diagnosis SNOMED-CT Code Diagnosis ICD10 Code Diagnosis Note [id number] Breanna Astorga MD [facility] [address] [place] [phone] 02/28/2023 12:37:26 03/04/2023 09:41:23 Chest pain 16295027 R07.9 The above. Patient currently pain-free and she is allergic to aspirin so no medication s given ALS called for transport Low blood pressure 61902 003 I95.9 Patient is borderline orthostati c but not dehydrated clinically or by laboratory evaluation . Given that her she is pain-free, blood pressure is stable lying and sitting in the need to work-up for potential aortic aneurysm, IV fluids held at this time Breanna Astorga MD [facility] [address] [place] [phone] 06/23/2023 11:12:04 06/25/2023 17:10:00 Urinary symptoms 528661863 R39.9 UTI with possible pyelonephr itis-advis ed to stay well-hydra roula. Patient has no history of CKD she had a BUN of 13/creatin ine 0.8 IN FEB 2023. She states she has been able to tolerate p.o.-advis ed to push fluids and follow-up with PCP later this week. [id number] Shanell Freitas MD [facility] [address] [place] [phone] 12/26/2023 20:59:55 12/26/2023 22:02:10 Hernia of anterior abdominal wall 542457004 K43.9 Health Concerns Section Related Observation LastModified by Organization Detai ls LastModified Time None Recorded Concern Status LastModified by Organization Details LastModified Time None Recorded Advance Directives Directive None Recorded Payers Encounter Date Sequence Insurance Name Policy Number Policy Fu Covered Member ID Fu Member ID Guarantor Name 02/28/2023 1 [facility] - DOS ON OR AFTER 2022 - DUAL ELIGIBLE - ALF OPTIONS AND ONE CARE (MEDICARE REPLACEMENT/ADV ANTAGE - HMO) Harriett Freire [id number] Harriett Freire 06/23/2023 1 [facility] - DOS ON OR AFTER 2022 - DUAL ELIGIBLE - ALF OPTIONS AND ONE CARE (MEDICARE REPLACEMENT/ADV ANTAGE - HMO) Harriett Freire [id number] Harriett Freire 12/26/2023 1 [facility] - DOS ON OR AFTER 2022 - DUAL ELIGIBLE - ALF OPTIONS AND ONE CARE (MEDICARE REPLACEMENT/ADV ANTAGE - HMO) Harriett Tani [id number] Harriett Tani Notes Date Note Type Note Provider Name and Address Organization Details Recorded Time 02/28/2023 text/html [facility] Nursing Assessment: Reason For Request: PIGMENT AND LACQUER MIXER reporting dizziness, weakness>PIGMENT AND LACQUER MIXER states she gets these particular symptoms here and there>usually related to blood pressure PIGMENT AND LACQUER MIXER states. 85/43 10:45am 02/28/23 Patient Reports: Shortness of Breath; Palpitations, feeling dizzy; Chest pain, increased fatigue; Weakness/tachycardia Denies: History of Heart Attack, in the setting of active chest pain Active Chest pain, radiates to neck jaw and or arm Diaphoretic/Sweating Describes as ? crushing? Sudden onset of nausea/Vomiting and shortness of breath. Unable to speak in full sentences without distress CHF history, increased swelling and edema Chief Complaints: Syncope/Dizziness/Li ghtheadedness, Weakness/Lethargy, Hypertension, Chest PainAllergies: AspirinComments: CG reports the member is feeling unwell - Dizzy and weak - this morning - CP - 5/10 - Hx of seizures - With SOB - S/S started 1 hour ago - Denies N/V - Declined Emergency care options - Member/CG declined - Member is requesting a wellness check - Reg flags reviewed - Tyler FAY segmd: Patient is a non-smoker and denies any family history of coronary disease but her brother of an aortic aneurysm. 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 Her normal blood pressure is in the 120/80 range. She is on clopidogrel to prevent strokes she reports. She has had similar feeling chest pain before but has never been hypotensive. The chest pain was left-sided and non-radiating without accompanying back pain. It lasted from 10 AM this morning at rest till approximately 12:20 PM just after the medic arrived. It feels like a pressure and it is worse with deep inspiration. She is denying fevers, chills, palpitations/cough/s weats/N/V/D. She denies taking any extra medication that could cause dizziness or hypotension. She states there is no family history of CAD but her brother of an aortic aneurysm Field Geologist Note From Kj Wilson: Dispatched to the call address for the female with dizziness/cp and hypotension. Pts PIGMENT AND LACQUER MIXER states Pt has these episodes fairly often but her BP is never below 120 systolic. Pt states she no longer has the chest pain but it was left sided chest pressure when she took a deep breath. She states the dizziness gets worse when she gets up and walks. Pt initially hesitant about going to ED but family/[employer] and this medic were able to convince her that it was in her best interest to be seen in the ED. [employer] friendly and helpful throughout visit. Pt was found sitting in living room chair, CAOx4, airway open and patent, breathing non labored, able to speak in full sentences, -JVD, -HEENT, skin PWD with good turgor, abd soft non tender/distended, -pitting edema, lung sounds clear and equal bilaterally, strong and equal radial pulses, s1/s2 sounds present and normal. BMP conducted with normal results. EKG conducted with multiple ST changes (depression/elevatio n and T wave inversion) in line with possible myocardia event. Pt also presents with 1st degree AV block with no known previous hx if cardiac issues. Pt also showing orthostatic changes. C consulted. Pt was advised to go to ED. Pt initially kept refusing but ultimately agreed to go if [employer] took her. Pt wanted to go to [facility] but she was advised that [facility] holds the only interventional cardiac laboratory technician in the area. Pt was assisted with [employer] out to car. EKG given to [employer] to provide to the ED. ALL times are approx. .................... .................... .................... .................... .................... .................... .................... . Disposition: Fulfilled Breanna Astorga MD [address] [facility],[address], [place], [address], [facility] 03/01/2023 15:43:59 06/23/2023 text/html HPI: Pt. reports since surgery last friday after raman removal she's had: +urinary frequency +burning with urination +urinary urgency +lower back pain Denies: -foul smelling urine -fever .................... .................... .................... .................... .................... .................... .................... . CRC Nurse Triage Notes (Lavern Ibarra): Comments: HPI reviewed. No further information required to process visit. .................... .................... .................... .................... .................... .................... .................... . Field Geologist Note From Yoan Dee: Pt reports having a raman while in the hospital and since being released last week she has been experiencing dysuria, lower back pain and dark, cloudy urine. Pt denies CP, SOB, HUGHES, hematuria, f/n/v/d. Pt is alert, NAD. VSS. Afebrile. Non focal neuro exam. Normal gait. Lungs CTA. Suprapubic tenderness. Left sided CVA tenderness. No LE edema. Straight cath for UA; +KARY, +NIT, +PRO, +BLO. UC sent to [facility]. Pt treated with bactrim DS. Pt instructed to stay well hydrated, f/u with PCP later this week and to seek emergent medical care for new or worsening sx, which are reviewed with her. .................... .................... .................... .................... .................... .................... .................... . Disposition: Fulfilled SEGMD: As above. Patient feels she is not fully emptying her bladder, complains of dysuria and urgency. Patient has no history of CKD- 03/20 BUN was 13 with a creatinine of 0.8. She feels she cannot void at this time and gave medic permission to do a straight cath. Breanna Astorga MD [address] [place] [address],[address], [place], [address], [facility] 06/24/2023 17:47:09 12/26/2023 text/html HPI: Caller: TRACEY Caldera for pt (info only, caller not w/ pt currently)Call Back Number:? [phone] (pt's home phone [phone]) S: Abd discomfortB: pt reports upper abd pain x few wks ? pt gets full easily? aching pain ? feels like a lump in epigastric region per pt? upper abd distention? worsens after meals? has used Mylanta, Pepcid, Gas-X w/out relief? s/p colon resection r/t cx- 2008? PMH BMI 35+, AVM? denies vomiting/diarrhea, SOB, CP, diaphoresis, jaw pain, severe pain? unable to triage pt directly, caller denies acute distress at this timeA: Per protocol, OV today. Unable to schedule pt in office as caller states she cannot get pt to the office today r/t schedule conflict.court messenger placed [facility] referral immediately following call. Caller is amenable to plan of care, agrees to stay by the phone to receive scheduling call. Pt given home care advice and advised on s/s requiring call back and /or emergent intervention- pt states understanding. ?R: Message routed to PCP and [facility] as FYI. Thank you. .................... .................... .................... .................... .................... .................... .................... . CRC Nurse Triage Notes (Jose Aj): Chief Complaints: Abdominal Pain PMH: Hypertension Allergies: Aspirin Other Allergies: terbinafine Comments: Reviewed HPI .................... .................... .................... .................... .................... .................... .................... . Field Geologist Note From Susu Oakes: Pt chief complaint today of abdominal pressure. Pt states she is not currently feeling pain however pain is associated occasionally with a level of 3/10. Pt states that the situation has been occurring for the last x3 weeks. Pt felt as if she was bloated and began to take in no specific orders, miralax as well as gas x, without relief. Pt states that she feels she has a hernia which is causing the current situation. Pt has not been able to properly eat a meal due to feeling bloated. Pt has been managing pain with Tylenol with success.Pt denies cp, sob as well as nausea and vomiting. Pt does support diarrhea which is watery.Non neural focal exam. Afebrile, vitals wnl. Lungs are clear bilaterally. Upon abdominal assessment just above the abdominal area a mass can be felt which is approx 3 inches in diameter. Tender to touch and very firm. No lower extremity edema. Pt is caox4 with a gcs of 15. Positive [facility] consulted Pt informed she may continue taking tylenol as needed 1 gram every 6 hours. Pt also informed to contact her pcp at the earliest point she can to have an assessment performed and a referral to gastro Pt educated on red flag symptoms and instructed to calm emergency services if any present. Field Geologist Allergies: Aspirin .................... .................... .................... .................... .................... .................... .................... . Disposition: Blanca Freitas MD [address] [facility],[address], [place], [address], [facility] 12/26/2023 21:43:20 OBGyn Episode No OBEpisode recorded.
--- OUTSIDE RECORDS SUMMARY | 2024-07-08 18:17 | XMS_ITS | Encounter Summary ---
Author Organization [facility] Address [address] [place] [address] Care Team Providers Care Partner Marketing Intern Name Role Phone Unavailable Primary Care Provider Unavailabl e Reason for Visit * Reason Onset Date Comments IR date 06/15/2024 Encounter Details Date Type Department Care Team (Late st Contact Info) Description 06/15/2024 Telephone [facility] [place] [address] [place] [address] Sharmaine Sargent, HUMBERTO IR date Social History Tobacco Use Types Packs/Day Years [...] as of this encounter Progress Notes * Sharmaine Sargent RN - 06/15/2024 1:11 PM EST Called and spoke with patient's daughter, Tracee, and let her know Dr. Villatoro will need to move her IR date to 06/23/24. She verbalized understanding and will call back to confirm that date works for them. Informed her I will move patient to that date for now to hold her spot. documented in this encounter Plan of Treatment Not on file documented as of this encounter Visit Diagnoses Not on filedocumented in this encounter
--- OUTSIDE RECORDS SUMMARY | 2024-07-08 18:17 | XMS_ITS | Encounter Summary ---
[facility] Organization [facility] Address [id number] [place] [id number] Care Team Providers Care Die Out Worker Name Role Phone Physician, No Pcp Primary Care Provider Unavaila ble Reason for Visit * Auth/Cert (Routine) Specialty Diagnoses / Procedures Referred By Contac t Referred To Contact Diagnoses na Procedures na [facility] [id number] [place] [phone] [facility] Interventional Radiology [address] [place] [phone] Phone: tel: Referral ID Status Reason Start Date Expiration Date Visits Re quested Visits Authorized [id number] 1 1 Encounter Details Date Type Department Care Team (Latest Contact Info) Description 06/23/2024 11:57 AM EST - 06/24/2024 9:51 AM EST Hospital Encounter [facility] MS ICU 5-[address] [place] [phone] Vaibhav Cevallos MD [address] [place] [address] Shai Wellingtno MD [address] [place] [address] Jackson Guan MD [facility] [place] [address] Dural arteriovenous fistula Discharge Disposition: Home or Self Care Social History Tobacco Use Types Packs/Day Years [...] for your loved ones. For example, child psychologist or elderly care for an older adult? [...] on file documented as of this encounter Last Filed Vital Signs Vital Sign Reading Time Taken Comments Blood Pressure 132/91 06/24/2024 9:45 AM EST Pulse 82 06/24/2024 9:45 AM EST Temperature 37.1 ??C (98.8 ??F) 06/24/2024 8:00 AM ES T Respiratory Rate 14 06/24/2024 9:45 AM EST Oxygen Saturation 96% 06/24/2024 9:45 AM EST Inhaled Oxygen Concentration - - Weight 101 kg (222 lb) 06/23/2024 8:42 AM EST Height 167.6 cm (5' 6 ) 06/23/2024 8:42 AM EST Body Mass Index 35.83 06/23/2024 8:42 AM EST documented in this encounter Discharge Summaries * Kavon Christiansen MD - 06/24/2024 10:43 AM EST Physician Discharge Summary Admit date: 06/23/2024 Admitting Physician: Vaibhav Cevallos MD Discharge Physician: Shai Wellington MD Discharge Date: 06/24/2024 Admitting Diagnosis: Dural arteriovenous fistula [I67.1] Discharge Diagnoses: Patient Active Problem List Diagnosis ??? AVM (arteriovenous malformation) ??? Cerebral arteriovenous malformation (AVM) ??? Dural arteriovenous fistula ??? TIA (transient ischemic attack) Discharge Condition: Fair Discharged to: Home Follow Up Appointments: Contact information for follow-up Jackson Villatoro MD Specialty: Neurosurgery [facility] [place] [id number] Next Steps: Follow up in 3 month(s) Your medication list CONTINUE taking these medications Instructions Last Dose Given Next Dose Due brimonidine 0.2 % ophthalmic solution Commonly known as: ALPHAGAN 1 drop. dicyclomine 20 mg tablet Commonly known as: BENTYL Take 1 tablet (20 mg total) by mouth. dorzolamide-timoloL 22.3-6.8 mg/mL ophthalmic solution Commonly known as: COSOPT Administer 1 drop into both eyes 2 (two) times a day. latanoprost 0.005 % ophthalmic solution Commonly known as: XALATAN 1 drop. levETIRAcetam 500 mg tablet Commonly known as: KEPPRA Take 1 tablet (500 mg total) by mouth 2 (two) times a day. losartan 50 mg tablet Commonly known as: COZAAR Take 1 tablet (50 mg total) by mouth 1 (one) time each day. meclizine 12.5 mg tablet Commonly known as: ANTIVERT Take 1 tablet (12.5 mg total) by mouth. pantoprazole 40 mg EC tablet Commonly known as: PROTONIX Take 1 tablet (40 mg total) by mouth 2 (two) times a day. senna 8.6 mg tablet TAKE 2 TABLET BY MOUTH DAILY FOR CONSTIPATION WITH PLENTY OF WATER. simethicone 80 mg chewable tablet Commonly known as: MYLICON CHEW 1 TABLET BY MOUTH TWICE A DAY NEEDED simvastatin 20 mg tablet Commonly known as: ZOCOR Take 1 tablet (20 mg total) by mouth. VITAMIN D2 ORAL Take by mouth. zolpidem 10 mg tablet Commonly known as: AMBIEN Take 1 tablet (10 mg total) by mouth. STOP taking these medications lactulose solution Commonly known as: CHRONULAC TO BE FOLLOWED UP AFTER DISCHARGE: 1. Please follow up with your Neurosurgeon, Dr. Villatoro in 3 months after your embolization 2. Please continue to monitor your blood pressure at home. Follow up with your PCP regarding blood pressure management 3. Please return to the hospital if you have any weakness, excruciating headache that does not resolve with medications, or changes in your mental status. 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 Patient has a history of right frontal dural AV fistula, has had 3 prior embolization attempts. Follows up with Dr. Villatoro patient. After the 3 prior embolization attempts, there was a reduction in blood flow but the fistula is persistent. Cerebral angio 06/18/2023 showed small remanence of the right parasagittal dural 8 arteriovenous fistula. Patient took a break from further interventions and recently saw Dr. Villatoro and decision was made to proceed with further interventions. Patient presented for elective embolization and was not able to be seen prior to procedure. Patientseen and examined after procedure. She was lethargic waking up from anesthesia. Complaining of severe headache, no focal neurological deficits. Appropriately follows commands. Feeling nauseous. 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 Patient has had 3 previous embolization attempts at eradicating fistula. Per neurosurgery notes, significant reduction in blood flow was obtained but the fistula continues to persist. Due to risk of intracerebral hemorrhage, decision made to continue with further elective embolizations to eradicate fistula. 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 Patient underwent successful embolization of right frontal convexity dural AV fistula on 06/23/2024 with no complications. Patient had some post op headache and nausea that was managed with pain medications and antiemetics. She is doing well postprocedure, no changes in her mentation or neurologicalexam. She is to follow-up with her neurosurgeon, Dr. Villatoro in approximately 3 months for follow up. Continue Keppra 500 mg twice daily for seizure prophylaxis CARDIOVASCULAR #HTN #HLD Home medications include: simvastatin 20 mg daily, losartan 50 mg daily Last TTE 07/04/2022 with LV EF 65 to 75%, mild left ventricular hypertrophy, normal RV systolic function. Patient was discharged on home medications. Plan to follow-up with PCP regarding blood pressure management [facility]ORY [facility] #GERD Home medications include Pantoprazole 40 mg twice daily Discharged on home medications RENAL [facility] Baseline creatinine 0.6-0.8 HEME/ONC [facility] ENDO[facility] #Prediabetes Last A1c 5.7 2022 INFECTIOUS DISEASES [facility] Consults: [facility] GENERAL CONSULT Significant Diagnostic Studies: Recent Results (from the past 24 hours) POC Activated clotting time manually resulted Collection Time: 06/23/24 12:35 PM Result Value Ref Range Activated Clotting Time Celite POCT 155 sec POC Activated clotting time manually resulted Collection Time: 06/23/24 1:34 PM Result Value Ref Range Activated Clotting Time Celite POCT 340 sec POCT Glucose, blood Collection Time: 06/23/24 5:03 PM Result Value Ref Range Glucose POCT 151 70 - 199 mg/dL ECG 12 lead Collection Time: 06/23/24 5:08 PM Result Value Ref Range Ventricular Rate ECG 95 BPM Atrial Rate 95 BPM P-R Interval 182 ms QRS Duration 84 ms Q-T Interval 358 ms QTc 449 ms P Wave [place] 66 degrees R [place] 39 degrees T [place] 54 degrees ECG Interpretation Normal sinus rhythm Nonspecific ST and T wave abnormality Abnormal ECG When compared with ECG of 29-JUN-2022 23:08, Vent. rate has increased BY 35 BPM Comprehensive metabolic panel Collection Time: 06/23/24 7:25 PM Result Value Ref Range Sodium 137 135 - 145 mmol/L Potassium 3.7 3.5 - 5.1 mmol/L Chloride 107 98 - 107 mmol/L CO2 21 (L) 24 - 32 mmol/L Anion Gap 9 5 - 14 Glucose 155 70 - 199 mg/dL BUN 11 7 - 17 mg/dL Creatinine 0.70 0.50 - 1.00 mg/dL eGFR 91 >=60 mL/min/1.73m2 BUN/Creatinine Ratio 15.7 12.0 - 20.0 Calcium 8.7 8.4 - 10.2 mg/dL AST (SGOT) 22 5 - 40 unit/L ALT (SGPT) 11 7 - 52 unit/L Alkaline Phosphatase 59 34 - 104 unit/L Total Protein 7.3 6.4 - 8.5 g/dL Albumin 4.2 3.5 - 5.0 g/dL Total Bilirubin 0.6 0.3 - 1.0 mg/dL Complete blood count Collection Time: 06/23/24 7:25 PM Result Value Ref Range WBC 8.8 4.0 - 10.5 K/mcL RBC 4.42 4.20 - 5.40 M/mcL Hemoglobin 14.2 12.5 - 16.0 g/dL Hematocrit 43.3 37.0 - 47.0 % MCV 97.8 78.0 - 100.0 FL MCH 32.1 25.0 - 33.0 pcg MCHC 32.9 32.0 - 36.0 g/dL RDW 13.8 12.1 - 16.2 % Platelets 209 150 - 450 K/mcL MPV 10.5 7.4 - 11.4 FL Magnesium Collection Time: 06/23/24 7:25 PM Result Value Ref Range Magnesium 1.7 1.7 - 2.8 mg/dL Phosphorus Collection Time: 06/23/24 7:25 PM Result Value Ref Range Phosphorus 2.1 (L) 2.5 - 4.5 mg/dL Hemoglobin A1c Collection Time: 06/23/24 7:25 PM Result Value Ref Range Hemoglobin A1C 6.1 (H) <5.7 % Mean Bld Glu Estim. 128 mg/dL POCT Glucose, blood Collection Time: 06/24/24 12:39 AM Result Value Ref Range Glucose POCT 144 70 - 199 mg/dL Basic metabolic panel Collection Time: 06/24/24 4:58 AM Result Value Ref Range Sodium 139 135 - 145 mmol/L Potassium 4.2 3.5 - 5.1 mmol/L Chloride 106 98 - 107 mmol/L CO2 24 24 - 32 mmol/L Anion Gap 9 5 - 14 Glucose 162 70 - 199 mg/dL BUN 10 7 - 17 mg/dL Creatinine 0.70 0.50 - 1.00 mg/dL eGFR 91 >=60 mL/min/1.73m2 BUN/Creatinine Ratio 14.3 12.0 - 20.0 Calcium 8.1 (L) 8.4 - 10.2 mg/dL Hepatic function panel Collection Time: 06/24/24 4:58 AM Result Value Ref Range ALT (SGPT) 13 7 - 52 unit/L AST (SGOT) 37 5 - 40 unit/L Alkaline Phosphatase 41 34 - 104 unit/L Bilirubin, Direct 0.1 0.0 - 0.2 mg/dL Total Bilirubin 0.6 0.3 - 1.0 mg/dL Total Protein 6.7 6.4 - 8.5 g/dL Albumin 3.7 3.5 - 5.0 g/dL Globulin, Total 3.0 2.3 - 3.5 g/dL A/G Ratio 1.2 Magnesium Collection Time: 06/24/24 4:58 AM Result Value Ref Range Magnesium 1.8 1.7 - 2.8 mg/dL Phosphorus Collection Time: 06/24/24 4:58 AM Result Value Ref Range Phosphorus 5.8 (H) 2.5 - 4.5 mg/dL Complete blood count Collection Time: 06/24/24 4:58 AM Result Value Ref Range WBC 5.6 4.0 - 10.5 K/mcL RBC 4.11 (L) 4.20 - 5.40 M/mcL Hemoglobin 13.3 12.5 - 16.0 g/dL Hematocrit 39.8 37.0 - 47.0 % MCV 96.9 78.0 - 100.0 FL MCH 32.3 25.0 - 33.0 pcg MCHC 33.4 32.0 - 36.0 g/dL RDW 14.0 12.1 - 16.2 % Platelets 204 150 - 450 K/mcL MPV 10.3 7.4 - 11.4 FL POCT Glucose, blood Collection Time: 06/24/24 8:58 AM Result Value Ref Range Glucose POCT 118 70 - 199 mg/dL No results found for this or any previous visit (from the past week). No results found. Code Status: Full Code - Confirmed Pending Labs: Physical Exam at Discharge: Vitals: 06/24/24 1030 BP: (!) 141/65 Pulse: 74 Resp: 13 Temp: SpO2: 97% Physical Exam Constitutional: Appearance: She is obese. Cardiovascular: Rate and Rhythm: Normal rate and regular rhythm. Pulses: Normal pulses. Heart sounds: Normal heart sounds. No murmur heard. Pulmonary: Effort: Pulmonary effort is normal. No respiratory distress. Breath sounds: Normal breath sounds. No wheezing. Abdominal: General: Abdomen is flat. Bowel sounds are normal. There is no distension. Palpations: Abdomen is soft. Tenderness: There is no abdominal tenderness. Musculoskeletal: Right lower leg: No edema. Left lower leg: No edema. Neurological: Mental Status: She is alert. Please refer to AVS for a listing of medications. Plan discussed with MD Kavon Peterson MD Cosigned by Shai Wellington MD at 06/24/2024 11:01 AM EST Associated attestation - Shai Wellington MD - 06/24/2024 11:01 AM EST I have personally seen and examined the patient. Pertinent blood work and imaging were reviewed. Care of this patient was discussed with the resident/fellow/DEDE. I agree with the above assessment andphysical findings with the following observations/additions/exceptions: Attending MDM : High Clinical Impression & Plan: CRISTOPHER overnight. Weaned off cardene in AM. Tolerating PO. Ambulated without issues. Case discussed with Dr. Villatoro-neuro IR. Ok for discharge from their standpoint. Will discharge with plans for outpatient follow-up with Dr. Villatoro. Remainder of recommendations per resident note. Shai Wellington MD Staff Physician Department of Pulmonary and Critical Care Medicine [facility] 06/24/2024 10:59 AM EST documented in this encounter Discharge Instructions * Discharge Instructions* Kavon Christiansen MD - 06/24/2024 9:57 AM EST 1. Please follow up with your Neurosurgeon, Dr. Villatoro in 6 weeks after your embolization 2. Please continue to monitor your blood pressure at home. Follow up with your PCP regarding blood pressure management 3. Please return to the hospital if you have any weakness, excruciating headache that does not resolve with medications, or changes in your mental status. 4. If you develop a headache, try to take Tylenol [id number] as well as medication such as ibuprofen. If it does not resolve, please contact Dr. Villatoro office for further management. documented in this encounter Medications at Time of Discharge brimonidine (ALPHAGAN) 0.2 % ophthalmic solution 1 drop. 06/07/2022 dicyclomine (BENTYL) 20 mg tablet Take 1 tablet (20 mg total) by mouth. 06/25/2022 dorzolamide-mau loL (COSOPT) 22.3-6.8 mg/mL ophthalmic solution Administer 1 drop into both eyes 2 (two) times a day. 09/28/2020 ergocalciferol, vitamin D2, (VITAMIN D2 ORAL) Take by mouth. latanoprost (XALATAN) 0.005 % ophthalmic solution 1 drop. 06/07/2022 levETIRAcetam (KEPPRA) 500 mg tablet Take 1 tablet (500 mg total) by mouth 2 (two) times a day. 08/13/2022 losartan (COZAAR) 50 mg tablet Take 1 tablet (50 mg total) by mouth 1 (one) time each day. meclizine (ANTIVERT) 12.5 mg tablet Take 1 tablet (12.5 mg total) by mouth. 09/20/2018 pantoprazole (PROTONIX) 40 mg EC tablet Take 1 tablet (40 mg total) by mouth 2 (two) times a day. 05/17/2022 senna 8.6 mg tablet TAKE 2 TABLET BY MOUTH DAILY FOR CONSTIPATION WITH PLENTY OF WATER. 04/11/2022 simethicone (MYLICON) 80 mg chewable tablet CHEW 1 TABLET BY MOUTH TWICE A DAY NEEDED 05/27/2022 simvastatin (ZOCOR) 20 mg tablet Take 1 tablet (20 mg total) by mouth. 05/30/2022 zolpidem (AMBIEN) 10 mg tablet Take 1 tablet (10 mg total) by mouth. 05/29/2022 documented as of this encounter Discharge Disposition Disposition Code Departure Means Destination Comment s Home or Self Care documented in this encounter Progress Notes * Cecy Bullard LPN - 06/24/2024 11:34 AM EST Patient with discharge orders home. Daughter called for transport. Discharge summary printed and went over with patient regarding follow up in 6 weeks with neurosurgery, meds, and when/if to return to ED. Patient and daughter verbalized understanding. Patient left at 11:30 am via personal walker accompanied by daughter with all belongings without incident. Discharge completed with assistance of nurse dischargeHUMBERTO Farris. * Lilly Stafford NP - 06/24/2024 9:51 AM EST Neurosurgery Progress Note No chief complaint on file. POD #1 s/p Dural AVF embolization S: No acute event overnight. The patient complains of having headache, but denies any new neurological symptoms. O: Visit Vitals BP (!) 140/73 Pulse 89 Temp 36.5 ??C (97.7 ??F) (Oral) Resp 19 Ht 1.676 m (66 ) Wt 101 kg (222 lb) SpO2 93% BMI 35.83 kg/m?? Smoking Status Never BSA 2.09 m?? No intake/output data recorded. I/O this shift: In: 560 [P.O.:60; I.V.:500] Out: 50 [Urine:50] Physical Exam Vitals reviewed. Constitutional: General: She is not in acute distress. Appearance: Normal appearance. Pulmonary: Effort: Pulmonary effort is normal. Abdominal: Palpations: Abdomen is soft. Tenderness: There is no abdominal tenderness. Neurological: Mental Status: She is alert and oriented to person, place, and time. GCS: GCS eye subscore is 4. GCS verbal subscore is 5. GCS motor subscore is 6. Cranial Nerves: No dysarthria. Motor: No tremor or pronator drift. Comments: No field cut Pupils are equal and reactive to light symmetrically. Extraoccular movements intact Facial sensation is symmetric. No facial droop. The palate rises symmetrically and the uvula is midline. The tongue is midline. Motor: Right upper extremity strengh is 5/5 Left upper extremity strength is 5/5 Right lower extremity strenght is 5/5 Left lower extremity strength is 5/5 Coordination: Finger to nose movements intact bilaterally Right femoral access CDI A/P: 74 y.o. female POD #1 s/p dural AV fistula embolization via right femoral access is doing wellimmediately postprocedure. No additional neurovascular surgery intervention. From our perspective the patient can be discharged home and follow-up with Dr. Villatoro in 6 weeks. Plan discussed with the patient at the bedside. Shewas advised to call the office with any questions or concerns. * Tom Molina - 06/24/2024 8:51 AM EST SPIRITUAL CARE Date/Time:06/24/24 at 8:51 AM EST Type of Visit: Initial Visit and Contact Lens Cutter Rounding Reason for Visit: Spiritual/Emotional Support and Spiritual Assessment Time Spent: 7 Minutes Location: [facility]5902- Sacramental Encounters: Spiritual Distress Assessment: Spiritual Distress Assessment at beginning of visit Meaning - Overall Life Balance: No evidence of unmet spiritual need Transcendence: Some evidence of unmet spiritual need Values - Acknowledgement: No evidence of unmet spiritual need Values - Control: Some evidence of unmet spiritual need Psycho-Social Identity: No evidence of unmet spiritual need SDAT Beginning of Visit Average Score: 0.4 Spiritual Distress Assessment at end of visit Meaning - Overall Life Balance: No evidence of unmet spiritual need Transcendence: No evidence of unmet spiritual need Values - Acknowledgement: No evidence of unmet spiritual need Values - Control: Some evidence of unmet spiritual need Psycho-Social Identity: No evidence of unmet spiritual need SDAT End of Visit Average Score: 0.2 Spiritual Assessment/Distress Spiritual Care Assessment: Assessment: Patient was awake and was talking with one of her daughters in macedonian. I greeted her in Kittitian and it made a comforting connection. She was not going to churches' because of her healthcondition and could not drive. She followed restorationist services and listened to preaching from pastors of different churches and she found comfort in them. I invited her for the gift of the present particularly when she said she was feeling better during this visit. I affirmed her initiative to listen virtually to preaching to nourish her radu. Distress was reduced and she looked forward to better surprises of another day. Spiritual care is available if needed. Intervention: NE Spiritual Care Interventions : focus on the present, normalized experience of patient/family, explored spiritual needs and resources, listened empathically, and provided prayer Outcomes: distress reduced, expressed gratitude, identified priorities, and progressed toward focus on the present Plan of Care: Visit as needed *Reference: Spiritual Distress Assessment Tool: The SDAT is a clinical tool used by chaplains to identify unmet spiritual and emotional needs that can impact Goals of Care in the following categories: Spiritual Distress Assessment Legend Spiritual Needs Related Questions Meaning Are you having difficulties coping with what is happening to your now? Does your hospitalization have any repercussions on the way you live usually? Transcendence Do you have a particular yazidi, radu, or spirituality? Is your yazidi/spirituality/radu challenged by what is happening to you now? Values Do you think that the health professionals caring for you know you well enough? Do you feel that you are participating in the decisions made about your care? Psycho-Social Identity Do you have any worries or difficulties regarding your family or other persons close to you? Do you feel lonely? Do you have links to your radu community? SCALE 0= no evidence of unmet spiritual needs 1= some evidence of unmet spiritual needs 2= substantial evidence of unmet spiritual needs 3= evidence of severe unmet spiritual needs * Sera Victor NP - 06/23/2024 5:47 PM EST Neurosurgery Progress Note POD #0 s/p Dural AVF embolization S: Denies any new numbness or weakness O: Visit Vitals BP (!) 140/73 Pulse 89 Temp 36.5 ??C (97.7 ??F) (Oral) Resp 19 Ht 1.676 m (66 ) Wt 101 kg (222 lb) SpO2 93% BMI 35.83 kg/m?? Smoking Status Never BSA 2.09 m?? No intake/output data recorded. I/O this shift: In: 560 [P.O.:60; I.V.:500] Out: 50 [Urine:50] General: Patient is cooperative. Appearance - In no acute distress. Neuro: Follows commands. EOMI. No facial asymmetry. Moves all extremities, good motor and sensationthroughout Speech is clear Right groin access site dressing is clean dry and intact. The groin is soft there is no evidence ofhematoma. Lungs: respiratory effort normal Heart: Rate - normal. Abdomen: soft, NT, ND Bilateral lower extremities are warm well-perfused A/P: 74 y.o. female POD #0 s/p dural AV fistula embolization via right femoral access is doing wellimmediately postprocedure. Q1 hour neurochecks SBP <140 Tylenol prn pain Sera Victor APRN, [facility] Neurosurgery/Neurovascular surgery [phone] Neurosurgery Attending: * Emma Boggs RN - 06/23/2024 5:25 PM EST IV Therapy called to start second PIV for patient. Due to pt's body habitus unable to visually assess and palpate veins, ultrasound assessment was required. Assessment with ultrasound guidance as follows: -veins in the left forearm are noted to be at 1.5cm on US Visualization. A 1.88 g PIV was placed in the Cephalic vein in the left arm with ultrasound guidance. Patient tolerated procedure well. Blood return was noted and line able to be flushed without difficulty. Unit RN notified of patient's successful IV placement. 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 Patient has a history of right frontal dural AV fistula, has had 3 prior embolization attempts. Follows up with Dr. Villatoro patient. After the 3 prior embolization attempts, there was a reduction in blood flow but the fistula is persistent. Cerebral angio 06/18/2023 showed small remanence of the right parasagittal dural 8 arteriovenous fistula. Patient took a break from further interventions and recently saw Dr. Villatoro and decision was made to proceed with further interventions. Patient presented for elective embolization and was not able to be seen prior to procedure. Patientseen and examined after procedure. She was lethargic waking up from anesthesia. Complaining of severe headache, no focal neurological deficits. Appropriately follows commands. Feeling nauseous. Vitals: T96.8, HR 77, RR 15 @96% on room air, BP 134/55 Labs: No labs done prior to procedure ASSESSMENT & PLAN Assessment: 74 y.o. yo female with PMH significant for HTN, HLD, GERD, complex right frontal convexity dural AVfistula supplied by multiple middle meningeal artery branches on either side s/p 3 prior embolization attempts. Admitted for elective endovascular embolization of dural AV fistula embolization and admitted to MICU for Q1H neurochecks. 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 Patient has had 3 previous embolization attempts at eradicating fistula. Per neurosurgery notes, significant reduction in blood flow was obtained but the fistula continues to persist. Due to risk of intracerebral hemorrhage, decision made to continue with further elective embolizations to eradicate fistula. 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 - Every 1 hour neurochecks - Neurovascular checks every 15 minutes x 4, every 30 minutes x 4, every hour x 4 - Patient to remain flat for 4 hours postprocedure - BP Goal <140/90 - Nicardipine drip to achieve BP goal - Continue home Keppra 500 BID, prophylactic for possibility of focal seizures - Holding chemical DVT prophylaxis per neurosurgery - Tylenol as needed for pain - If acute mental status change, stat CT head - Neurosurgery following, appreciate recs CARDIOVASCULAR #HTN #HLD Home medications include: simvastatin 20 mg daily, losartan 50 mg daily Last TTE 07/04/2022 with LV EF 65 to 75%, mild left ventricular hypertrophy, normal RV systolic function. - Nicardipine drip for goal BP below 140/90 - Continuous telemetry - Losartan 50 mg daily RESPIRATORY [facility] GASTROENTEROLOGY #GERD Home medications include Pantoprazole 40 mg twice daily - Continue home PPI - Advance diet as tolerated RENAL LAYO Baseline creatinine 0.6-0.8 - Daily BMP - Strict I's and O's - Avoid nephrotoxic medications HEME/ONC [facility] ENDOCRINE #Prediabetes Last A1c 5.7 2022 - A1c ordered - L ISS - POCT every 6 hours - Hypoglycemia protocol INFECTIOUS DISEASES LAYO Restraints: no PT/OT: no HOB >30 degrees: yes Stress Ulcer Prevention: yes DVT Prophylaxis: HELD Rasheed: yes Diet: Disposition: MICU Code Status: Full Code - Default Emergency Contact: Final plan per attending attestation OSMAR He [facility] PGY-2 Internal Medicine OBJECTIVE Vitals: Visit Vitals BP 134/55 (BP Location: Right arm, Patient Position: Sitting) Pulse 77 Temp 36 ??C (96.8 ??F) (Temporal) Resp 15 Intake/Output Summary (Last 24 hours) at 06/23/2024 1601 Last data filed at 06/23/2024 1502 Gross per 24 hour Intake 500 ml Output 50 ml Net 450 ml Physical Exam: Physical Exam Constitutional: Appearance: She is obese. Eyes: Comments: 2-3 mm pupils largely pinpoint after receiving fentanyl for pain Cardiovascular: Rate and Rhythm: Normal rate and regular rhythm. Pulses: Normal pulses. Heart sounds: Normal heart sounds. No murmur heard. Pulmonary: Effort: Pulmonary effort is normal. No respiratory distress. Breath sounds: Normal breath sounds. No wheezing or rhonchi. Abdominal: General: Abdomen is flat. Bowel sounds are normal. There is no distension. Palpations: Abdomen is soft. Tenderness: There is no abdominal tenderness. Musculoskeletal: Right lower leg: No edema. Left lower leg: No edema. Feet: Comments: Good peripheral pulses including posterior tibialis Skin: Comments: R femoral bandage from access site Neurological: Mental Status: She is lethargic. Labs: Recent Results (from the past 24 hours) POC Activated clotting time manually resulted Collection Time: 06/23/24 12:35 PM Result Value Ref Range Activated Clotting Time Celite POCT 155 sec POC Activated clotting time manually resulted Collection Time: 06/23/24 1:34 PM Result Value Ref Range Activated Clotting Time Celite POCT 340 sec Microbiology: No results found for: COLORU , CLARITYU , SPECGRAVU , THOMAS , LEUKOCYTESU , NITRITEU , PROTUR , GLUCOSEUR , KETONESU , BILIRUBINU , BLOODU No results found for this or any previous visit (from the past week). Radiology: IR Transcath Occlusion/Embolization MECHANISM ASSEMBLER Perc (Results Pending) EKG & Most Recent Echo: No results found for this or any previous visit. Medications: Scheduled Meds:atorvastatin, 10 mg, oral, Nightly brimonidine, 1 drop, Both Eyes, TID dorzolamide-timoloL, 1 drop, Both Eyes, BID fentaNYL, 25 mcg, intravenous, Once insulin lispro, 1-6 Units, subcutaneous, TID AC latanoprost, 1 drop, Both Eyes, Nightly levETIRAcetam, 500 mg, oral, BID [START ON 06/24/2024] losartan, 50 mg, oral, Daily ondansetron (PF), , , ondansetron, 4 mg, intravenous, Once pantoprazole, 40 mg, oral, BID Continuous Infusions:niCARdipine, 2.5-15 mg/hr PRN Meds:.PRN medications: acetaminophen, dextrose 50%, dextrose 50%, dextrose, dextrose, glucagon injection, ondansetron (PF), ondansetron, simethicone, zolpidem SUBJECTIVE Past Medical History: Past Medical History: Diagnosis Date GERD (gastroesophageal reflux disease) DX:GERD (gastroesophageal reflux disease) Glaucoma DX:Glaucoma HLD (hyperlipidemia) DX:HLD (hyperlipidemia) Past Surgical History: Past Surgical History: Procedure Laterality Date EXPLORATORY LAPAROTOMY W/ BOWEL RESECTION 2008 PROCEDURE:EXPLORATORY LAPAROTOMY W/ BOWEL RESECTION;COMMENT:for perforated bowel, no ostomy Family / Social History: Family History Problem Relation Name Age of Onset Stroke Mother 89 in sleep possibly from stroke Heart attack Father 80 Social History Socioeconomic History Marital status: Spouse name: Not on file Number of children: Not on file Years of education: Not on file Highest education level: Not on file Occupational History Not on file Tobacco Use Smoking status: Never Smokeless tobacco: Never Substance and Sexual Activity Alcohol use: Not Currently Drug use: Never Sexual activity: Not on file Other Topics Concern Not on file Social History Narrative Not on file Allergies: Allergies Allergen Reactions Penicillins Unknown Aspirin Other and Rash GI upset only Terbinafine Rash Prior to Admission Medications: @HOMEMEDSNAMESONLY@ Cosigned by Shai Wellington MD at 06/23/2024 5:18 PM EST Associated attestation - Shai Wellington MD - 06/23/2024 5:18 PM EST I have personally seen and examined the patient. Pertinent blood work and imaging were reviewed. Care of this patient was discussed with the resident/fellow/DEDE. 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 Assessment: R frontal convexity dural AV fistula now s/p repeat embolization Multiple prior embolizations for the above Hypertension Hyperlipidemia GERD Obesity Plan: Admit to ICU for close neurologic monitoring Q1hour neurochecks overnight. STAT CTH if acute change Neurovascular checks as detailed in resident note Maintain BP < 140/90. Continue home anti-hypertensive's. Maintain blood sugars <180 Keppra for seizure prophylaxis Follow-up additional neurosurgery recommendations Advance diet as tolerated Continue PPI Holding chemical VTE prophylaxis in the setting of neurosurgical procedure Remainder of recommendations per resident note Shai Wellington MD Staff Physician Department of Pulmonary and Critical Care Medicine [facility] 06/23/2024 5:12 PM EST documented in this encounter Procedure Notes * Jackson Villatoro MD - 06/23/2024 4:14 PM EST Brief op note: Preop Diagnosis: R MMA dural AVF Post Op Diagnosis: Same Procedure: Dural AVF embolization Surgeon: Jimenez Villatoro Anesthesia: General Findings: Right femoral access, dural AVF was completely embolized Complications: None EBL: 50 ml Disposition: ICU documented in this encounter Plan of Treatment Not on file documented as of this encounter Procedures Procedure Name Priority Date/Time Associated Diagnosis Comments POCT GLUCOSE BLOOD Routine 06/24/2024 8: 58 AM EST COMPLETE BLOOD COUNT Routine 06/24/2024 4:58 AM EST PHOSPHORUS Routine 06/24/2024 4:58 AM EST MAGNESIUM Routine 06/24/2024 4:58 AM EST HEPATIC FUNCTION PANEL Routine 06/24/2024 4:58 AM EST BASIC METABOLIC PANEL Routine 06/24/2024 4:58 AM EST POCT GLUCOSE BLOOD Routine 06/24/2024 12 :39 AM EST COMPLETE BLOOD COUNT Routine 06/23/2024 7:25 PM EST PHOSPHORUS Routine 06/23/2024 7:25 PM EST MAGNESIUM Routine 06/23/2024 7:25 PM EST HEMOGLOBIN A1C Routine 06/23/2024 7:25 PM EST COMPREHENSIVE METABOLIC PANEL Routine 06/23/2024 7:25 PM EST ECG 12-LEAD Routine 06/23/2024 5:08 PM EST POCT GLUCOSE BLOOD Routine 06/23/2024 5: 03 PM EST IR TRANSCATH OCCLUSION/EMBOLIZATIO N MECHANISM ASSEMBLER PERC Routine 06/23/2024 3:26 PM EST Dural arteriovenous fistula POCT ACTIVATED CLOTTING TIME Routine 06/23/2024 1:34 PM EST POCT ACTIVATED CLOTTING TIME Routine 06/23/2024 12:35 PM EST documented in this encounter Results * POCT Glucose, blood (06/24/2024 8:58 AM EST) [facility] Glucose POCT 118 70 - 199 mg/dL 06/24/2024 8:59 AM EST [facility] Comment: Fasting Reference Range: ? 70-99 mg/dL Non-Fasting Reference Range: 70-199 mg/dL Blood Capillary blood specimen / Unknown 06/24/2024 8:58 AM EST 06/24/2024 9:00 AM EST us Shai Wellington MD LAB POINT OF CARE TE ST DOCKED DEVICE UNSOLICITED RESULTS Final Result [facility] [address] [place] [address], * (ABNORMAL) Complete blood count (06/24/2024 4:58 AM EST) [facility] WBC 5.6 4.0 - 10.5 K/mcL LAB HEMETOLOGY METHOD 06/24/2024 5:25 AM [facility] RBC 4.11(L) 4.20 - 5.40 M/mcL LAB HEMETOLOGY METHOD 06/24/2024 5:25 AM EST [facility] Hemoglobin 13.3 12.5 - 16.0 g/dL LAB HEMETOLOGY METHOD 06/24/2024 5:25 AM EST [facility] Hematocrit 39.8 37.0 - 47.0 % LAB HEMETOLOGY METHOD 06/24/2024 5:25 AM EST [facility] MCV 96.9 78.0 - 100.0 FL LAB HEMETOLOGY METHOD 06/24/2024 5:25 AM EST [facility] MCH 32.3 25.0 - 33.0 pcg LAB HEMETOLOGY METHOD 06/24/2024 5:25 AM EST [facility] MCHC 33.4 32.0 - 36.0 g/dL LAB HEMETOLOGY METHOD 06/24/2024 5:25 AM EST [facility] RDW 14.0 12.1 - 16.2 % LAB HEMETOLOGY METHOD 06/24/2024 5:25 AM EST [facility] Platelets 204 150 - 450 K/mcL LAB HEMETOLOGY METHOD 06/24/2024 5:25 AM EST [facility] MPV 10.3 7.4 - 11.4 FL LAB HEMETOLOGY METHOD 06/24/2024 5:25 AM EST [facility] Blood Venous blood specimen / Unknown Venipuncture / Unknown 06/24/2024 4:58 AM EST 06/24/2024 5:18 AM EST Vaibhav Cevallos MD LAB BLOOD ORDERABLES Final Res ult [facility] [address] [place] [id number], [place] [phone] * (ABNORMAL) Phosphorus (06/24/2024 4:58 AM EST) Phosphorus 5.8(H) 2.5 - 4.5 mg/dL LAB CHEMISTRY METHOD 06/24/2024 5:51 AM EST [facility] Comment:Moderately hemolyzed Blood Venous blood specimen / Unknown Venipuncture / Unknown 06/24/2024 4:58 AM EST 06/24/2024 5:18 AM EST Vaibhav Cevallos MD LAB BLOOD ORDERABLES Final Res ult [facility] [address] [place] [id number], [place] [phone] * Magnesium (06/24/2024 4:58 AM EST) Magnesium 1.8 1.7 - 2.8 mg/dL LAB CHEMISTRY METHOD 06/24/2024 5:51 AM [facility] Comment:Moderately hemolyzed Blood Venous blood specimen / Unknown Venipuncture / Unknown 06/24/2024 4:58 AM EST 06/24/2024 5:18 AM EST us Vaibhav Cevallos MD LAB BLOOD ORDERABLES Final Res ult [facility] [address] [place] [address], * Hepatic function panel (06/24/2024 4:58 AM EST) ALT (SGPT) 13 7 - 52 unit/L LAB CHEMISTRY METHOD 06/24/2024 5:51 AM [facility] Comment:Moderately hemolyzed AST (SGOT) 37 5 - 40 unit/L LAB CHEMISTRY METHOD 06/24/2024 5:51 AM [facility] Comment:Moderately hemolyzed Alkaline Phosphatase 41 34 - 104 unit/L LAB CHEMISTRY METHOD 06/24/2024 5:51 AM [facility] Comment:Moderately hemolyzed Bilirubin, Direct 0.1 0.0 - 0.2 mg/dL LAB CHEMISTRY METHOD 06/24/2024 5:51 AM [facility] Comment:Moderately hemolyzed Total Bilirubin 0.6 0.3 - 1.0 mg/dL LAB CHEMISTRY METHOD 06/24/2024 5:51 AM [facility] Comment:Moderately hemolyzed Total Protein 6.7 6.4 - 8.5 g/dL LAB CHEMISTRY METHOD 06/24/2024 5:51 AM [facility] Comment:Moderately hemolyzed Albumin 3.7 3.5 - 5.0 g/dL LAB CHEMISTRY METHOD 06/24/2024 5:51 AM [facility] Comment:Moderately hemolyzed Globulin, Total 3.0 2.3 - 3.5 g/dL LAB CHEMISTRY METHOD 06/24/2024 5:51 AM [facility] A/G Ratio 1.2 LAB CHEMISTRY METHOD 06/24/2024 5:51 AM [facility] Blood Venous blood specimen / Unknown Venipuncture / Unknown 06/24/2024 4:58 AM EST 06/24/2024 5:18 AM EST us Vaibhav Cevallos MD LAB BLOOD ORDERABLES Final Res ult [facility] [address] [place] [address], [place] [phone] * (ABNORMAL) Basic metabolic panel (06/24/2024 4:58 AM EST) Sodium 139 135 - 145 mmol/L LAB CHEMISTRY METHOD 06/24/2024 5:51 AM [facility] Comment:Moderately hemolyzed Potassium 4.2 3.5 - 5.1 mmol/L LAB CHEMISTRY METHOD 06/24/2024 5:51 AM [facility] Comment:Moderately hemolyzed Chloride 106 98 - 107 mmol/L LAB CHEMISTRY METHOD 06/24/2024 5:51 AM [facility] Comment:Moderately hemolyzed CO2 24 24 - 32 mmol/L LAB CHEMISTRY METHOD 06/24/2024 5:51 AM [facility] Comment:Moderately hemolyzed Anion Gap 9 5 - 14 LAB CHEMISTRY METHOD 06/24/2024 5:51 AM [facility] Glucose 162 70 - 199 mg/dL LAB CHEMISTRY METHOD 06/24/2024 5:51 AM [facility] Comment:Moderately hemolyzed BUN 10 7 - 17 mg/dL LAB CHEMISTRY METHOD 06/24/2024 5:51 AM [facility] Comment:Moderately hemolyzed Creatinine 0.70 0.50 - 1.00 mg/dL LAB CHEMISTRY METHOD 06/24/2024 5:51 AM [facility] Comment:Moderately hemolyzed eGFR 91 >=60 mL/min/1. 73m2 LAB CHEMISTRY METHOD 06/24/2024 5:51 AM EST [facility] Comment:Calculation based on the??Chronic Kidney Disease Epidemiology Collaboration (CKD-EPI) equation refit??without adjustment for race. BUN/Creatinine Ratio 14.3 12.0 - 20.0 LAB CHEMISTRY METHOD 06/24/2024 5:51 AM EST [facility] Calcium 8.1(L) 8.4 - 10.2 mg/dL LAB CHEMISTRY METHOD 06/24/2024 5:51 AM EST [facility] Comment:Moderately hemolyzed Blood Venous blood specimen / Unknown Venipuncture / Unknown 06/24/2024 4:58 AM EST 06/24/2024 5:18 AM EST Vaibhav Cevallos MD LAB BLOOD ORDERABLES Final Res ult [facility] [address] [place] [address], [place] [phone] * POCT Glucose, blood (06/24/2024 12:39 AM EST) [facility] Glucose POCT 144 70 - 199 mg/dL 06/24/2024 12:42 AM EST [facility] Comment: Fasting Reference Range: ? 70-99 mg/dL Non-Fasting Reference Range: 70-199 mg/dL Blood Capillary blood specimen / Unknown 06/24/2024 12:39 AM EST 06/24/2024 12:42 AM EST Shai Wellington MD LAB POINT OF CARE TE ST DOCKED DEVICE UNSOLICITED RESULTS Final Result Performing Organization Address City/[facility]/ZIP Co de Phone Number [facility] [address] [place] [address], [place] [phone] * (ABNORMAL) Hemoglobin A1c (06/23/2024 7:25 PM EST) [facility] Hemoglobin A1C 6.1(H) <5.7 % LAB CHEMISTRY METHOD 06/24/2024 8:58 AM EST [facility] Mean Bld Glu Estim. 128 mg/dL LAB CHEMISTRY METHOD 06/24/2024 8:58 AM EST [facility] Blood Venous blood specimen / Unknown Venipuncture / Unknown 06/23/2024 7:25 PM EST 06/23/2024 7:42 PM EST Narrative [facility] - 06/24/2024 8:58 AM EST ADA Guidelines: ?? Increased risk Diabetes Mellitus A1C 5.7 - 6.4% and Fasting Blood Glucose 100 - 125 mg/dl Diabetes Mellitus: A1C >6.5% and Fasting Blood Glucose >125 mg/dl Vaibhav Cevallos MD LAB BLOOD ORDERABLES Final Res ult [facility] [address] [place] [address], [place] [phone] * (ABNORMAL) Phosphorus (06/23/2024 7:25 PM EST) [facility] Phosphorus 2.1(L) 2.5 - 4.5 mg/dL LAB CHEMISTRY METHOD 06/23/2024 10:01 PM EST [facility] Blood Venous blood specimen / Unknown Venipuncture / Unknown 06/23/2024 7:25 PM EST 06/23/2024 7:42 PM EST us Vaibhav Cevallos MD LAB BLOOD ORDERABLES Final Res ult [facility] [address] [place] [address], [place] [phone] * Magnesium (06/23/2024 7:25 PM EST) [facility] Magnesium 1.7 1.7 - 2.8 mg/dL LAB CHEMISTRY METHOD 06/23/2024 8:13 PM EST [facility] Blood Venous blood specimen / Unknown Venipuncture / Unknown 06/23/2024 7:25 PM EST 06/23/2024 7:42 PM EST us Vaibhav Cevallos MD LAB BLOOD ORDERABLES Final Res ult [facility] [address] [place] [address], [place] [phone] * Complete blood count (06/23/2024 7:25 PM EST) WBC 8.8 4.0 - 10.5 K/mcL LAB HEMETOLOGY METHOD 06/23/2024 7:46 PM [facility] RBC 4.42 4.20 - 5.40 M/mcL LAB HEMETOLOGY METHOD 06/23/2024 7:46 PM [facility] Hemoglobin 14.2 12.5 - 16.0 g/dL LAB HEMETOLOGY METHOD 06/23/2024 7:46 PM [facility] Hematocrit 43.3 37.0 - 47.0 % LAB HEMETOLOGY METHOD 06/23/2024 7:46 PM [facility] MCV 97.8 78.0 - 100.0 FL LAB HEMETOLOGY METHOD 06/23/2024 7:46 PM [facility] MCH 32.1 25.0 - 33.0 pcg LAB HEMETOLOGY METHOD 06/23/2024 7:46 PM [facility] MCHC 32.9 32.0 - 36.0 g/dL LAB HEMETOLOGY METHOD 06/23/2024 7:46 PM [facility] RDW 13.8 12.1 - 16.2 % LAB HEMETOLOGY METHOD 06/23/2024 7:46 PM [facility] Platelets 209 150 - 450 K/mcL LAB HEMETOLOGY METHOD 06/23/2024 7:46 PM EST [facility] MPV 10.5 7.4 - 11.4 FL LAB HEMETOLOGY METHOD 06/23/2024 7:46 PM EST [facility] Blood Venous blood specimen / Unknown Venipuncture / Unknown 06/23/2024 7:25 PM EST 06/23/2024 7:43 PM EST us Vaibhav Cevallos MD LAB BLOOD ORDERABLES Final Res ult [facility] [address] [place] [address], [place] [phone] * (ABNORMAL) Comprehensive metabolic panel (06/23/2024 7:25 PM EST) Sodium 137 135 - 145 mmol/L LAB CHEMISTRY METHOD 06/23/2024 8:13 PM [facility] Potassium 3.7 3.5 - 5.1 mmol/L LAB CHEMISTRY METHOD 06/23/2024 8:13 PM [facility] Chloride 107 98 - 107 mmol/L LAB CHEMISTRY METHOD 06/23/2024 8:13 PM [facility] CO2 21(L) 24 - 32 mmol/L LAB CHEMISTRY METHOD 06/23/2024 8:13 PM [facility] Anion Gap 9 5 - 14 LAB CHEMISTRY METHOD 06/23/2024 8:13 PM [facility] Glucose 155 70 - 199 mg/dL LAB CHEMISTRY METHOD 06/23/2024 8:13 PM [facility] BUN 11 7 - 17 mg/dL LAB CHEMISTRY METHOD 06/23/2024 8:13 PM [facility] Creatinine 0.70 0.50 - 1.00 mg/dL LAB CHEMISTRY METHOD 06/23/2024 8:13 PM [facility] eGFR 91 >=60 mL/min/1. 73m2 LAB CHEMISTRY METHOD 06/23/2024 8:13 PM EST [facility] Comment:Calculation based on the??Chronic Kidney Disease Epidemiology Collaboration (CKD-EPI) equation refit??without adjustment for race. BUN/Creatinine Ratio 15.7 12.0 - 20.0 LAB CHEMISTRY METHOD 06/23/2024 8:13 PM EST [facility] Calcium 8.7 8.4 - 10.2 mg/dL LAB CHEMISTRY METHOD 06/23/2024 8:13 PM [facility] AST (SGOT) 22 5 - 40 unit/L LAB CHEMISTRY METHOD 06/23/2024 8:13 PM [facility] ALT (SGPT) 11 7 - 52 unit/L LAB CHEMISTRY METHOD 06/23/2024 8:13 PM [facility] Alkaline Phosphatase 59 34 - 104 unit/L LAB CHEMISTRY METHOD 06/23/2024 8:13 PM EST [facility] Total Protein 7.3 6.4 - 8.5 g/dL LAB CHEMISTRY METHOD 06/23/2024 8:13 PM EST [facility] Albumin 4.2 3.5 - 5.0 g/dL LAB CHEMISTRY METHOD 06/23/2024 8:13 PM [facility] Total Bilirubin 0.6 0.3 - 1.0 mg/dL LAB CHEMISTRY METHOD 06/23/2024 8:13 PM EST [facility] Blood Venous blood specimen / Unknown Venipuncture / Unknown 06/23/2024 7:25 PM EST 06/23/2024 7:42 PM EST us Vaibhav Cevallos MD LAB BLOOD ORDERABLES Final Res ult [facility] [address] [place] [address], [place] [phone] * ECG 12 lead (06/23/2024 5:08 PM EST) Ventricular Rate ECG 95 BPM GEMUSE Atrial Rate 95 BPM GEMUSE P-R Interval 182 ms GEMUSE QRS Duration 84 ms GEMUSE Q-T Interval 358 ms GEMUSE QTc 449 ms GEMUSE P Wave [place] 66 degrees GEMUSE R [place] 39 degrees GEMUSE T [place] 54 degrees GEMUSE ECG Interpretation Normal sinus rhythm Nonspecific ST and T wave abnormality Abnormal ECG When compared with ECG of 29-JUN-2022 23:08, Vent. rate has increased BY ??35 BPM Confirmed by Jayson Carty ([id number]) on 07/02/2024 11:33:28 PM GEMUSE 06/23/2024 5:08 PM EST 07/02/2024 11:33 PM EST Vaibhav Cevallos MD ECG ORDERABLES Final Result GEMUSE * POCT Glucose, blood (06/23/2024 5:03 PM EST) Glucose POCT 151 70 - 199 mg/dL 06/23/2024 5:03 PM EST [facility] Comment: Fasting Reference Range: ? 70-99 mg/dL Non-Fasting Reference Range: 70-199 mg/dL Blood Capillary blood specimen / Unknown 06/23/2024 5:03 PM EST 06/23/2024 5:05 PM EST Vaibhav Cevallos MD LAB POINT OF CARE TE ST DOCKED DEVICE UNSOLICITED RESULTS Final Result [facility] [address] [place] [address], [place] [phone] * IR Transcath Occlusion/Embolization MECHANISM ASSEMBLER Perc (06/23/2024 3:26 PM EST) Anatomical Region Laterality Modality Interventional R adiology 06/25/2024 8:21 AM EST Impressions 06/25/2024 5:23 PM EST 1. Successful embolization of dural arteriovenous fistula supplied by right middle meningeal artery. ??Follow up angiography showed no residual fistula. Report reviewed and signed by : Dr. Jackson Villatoro MD on 06/25/2024 5:23 PM. Workstation Name - [id number] -------- FINAL REPORT -------- Dictated By: Jackson Guan Dictated Date: 06/25/2024 08:21 ET Assigned Physician: Jackson Guan Reviewed and Electronically Signed By: Jackson Guan Signed Date: 06/25/2024 17:23 ET Workstation ID: [id number] Transcribed By: Self Edit Transcribed Date: 06/25/2024 08:21 ET Narrative 06/25/2024 5:23 PM EST Patient Name: JONNIE HOLT ? MR#: [id number] ? Exam Description: IR TRANSCATH OCCLUSION/EMBOLIZATION MECHANISM ASSEMBLER PERC ? Exam Date/Time: 06/23/2024 11:28 AM PROCEDURE: 1. Cervicocerebral catheter angiography 2. Fernando embolization of right middle meningeal artery pedicle embolization of dural arterial venous fistula NUTRITION SERVICES WORKER(S): Jackson Villatoro MD INDICATION: High-grade dural arterial venous fistula, status post previous partial embolization COMPARISON: Cerebral angiogram from 06/18/2023 FLUOROSCOPY TIME: 88 minutes. ?? RADIATION DOSE: Dose area product: [id number] uGym2, air kerma: 2009 mGy CONTRAST USE: 100 mL Isovue 300. ANESTHESIA: GETA VESSELS CATHETERIZED/PROJECTIONS: Right external carotid artery PA and lateral Right common carotid artery PA and lateral Left common carotid artery PA and lateral Left vertebral artery EQUIPMENT: 5-Ghanaian Mast 2 selection catheter Joy 5 F [...] femoral artery and its branches.. ??A 6 Ghanaian shuttle sheath was placed and attached to continuous heparinized flush. Through the arterial sheath, 5 Ghanaian diagnostic catheter was over 035 Glidewire to [...] was advanced with the support of Joy 5-Ghanaian catheter. ??This was still challenging but eventually microcatheter could be advanced very close to the fistula itself. ??Once placed in optimum position, the microwire was removed and the microcatheter catheter prepped with DMSA. Next, under live fluoroscopy, Fernando was used to embolize the fistula with [...] common carotid artery was selected with a 5-Gh[place]ian selection catheter over 035 Glidewire to perform AP and lateral angiogram. ??This showed patent intracranial vasculature and no evidence of a suitable dural artery venous fistula. ??Finally, the left vertebral artery was selected with the 5-Ghanaian selection catheter and 035 Glidewire to obtain [...] Jackson Guan MD - 06/25/2024 Patient Name: JONNIE HOLT MR#: [id number] Exam Description: IR TRANSCATH OCCLUSION/EMBOLIZATION MECHANISM ASSEMBLER PERC ExamDate/Time: 06/23/2024 11:28 AM PROCEDURE: 1. Cervicocerebral catheter angiography 2. Fernando embolization of right middle meningeal artery pedicle embolizationof dural arterial venous fistula NUTRITION SERVICES WORKER(S): Jackson Villatoro MD INDICATION: High-grade dural arterial venous fistula, status post previouspartial embolization COMPARISON: Cerebral angiogram from 06/18/2023 FLUOROSCOPY TIME: 88 minutes. RADIATION DOSE: Dose area product: [id number] uGym2, air kerma: 2009 mGy CONTRAST USE: 100 mL Isovue 300. ANESTHESIA: GETA VESSELS CATHETERIZED/PROJECTIONS: Right external carotid artery PA and lateral Right common carotid artery PA and lateral Left common carotid artery PA and lateral Left vertebral artery EQUIPMENT: 5-Gh[place]ian Mast 2 selection catheter Joy 5 F [...] commonfemoral artery and its branches.. A 6 Ghanaian shuttle sheath was placedand attached to continuous heparinized flush. Through the arterial sheath, 5 Ghanaian diagnostic catheter was over 035Glidewire to select [...] wire 10 microwire with further support augmented byNaINCOM Storagen intermediate catheter. The intermediate catheter was advanced [...] center microcatheter and intermediate catheter. Next, over [id number] exchange length microwire, an headway duo microcatheter was advancedwith the support of Joy 5-Ghanaian catheter. This was still challengingbut eventually microcatheter could be advanced very close to the fistulaitself. Once placed in optimum position, the microwire was removed andthe microcatheter catheter prepped with DMSA. Next, under livefluoroscopy, Hooks was used to embolize the fistula with [...] common carotid artery was selected with a5- Ghanaian selection catheter over 035 Glidewire to perform AP and lateralangiogram. This showed patent intracranial vasculature and no evidence ofa suitable dural artery venous fistula. Finally, the left vertebralartery was selected with the 5-Ghanaian selection catheter and 035 Glidewireto obtain an [...] MD on 55:23 PM. Workstation Name - [id number] -------- FINAL REPORT -------- Dictated By: Jackson Guan Dictated Date: 06/25/2024 08:21 ET Assigned Physician: Jackson Guan Reviewed and Electronically Signed By: Jackson Guan Signed Date: 06/25/2024 17:23 ET Workstation ID: [id number] Transcribed By: Self Edit Transcribed Date: 06/25/2024 08:21 ET Jackson Villatoro MD IMG IR PROCEDURES Final R esult * POC Activated clotting time manually resulted (06/23/2024 1:34 PM EST) Activated Clotting Time Celite POCT 340 sec Blood Venous blood specimen / Unknown 06/23/2024 1:34 PM EST Jackson Villatoro MD POINT OF CARE TEST ENTER/ EDIT ORDERABLES Final Result * POC Activated clotting time manually resulted (06/23/2024 12:35 PM EST) Activated Clotting Time Celite POCT 155 sec Blood Venous blood specimen / Unknown 06/23/2024 12:35 PM EST Jackson Jimenez Villatoro MD POINT OF CARE TEST ENTER/ EDIT ORDERABLES Final Result documented in this encounter 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 documented in this encounter Admitting Diagnoses Diagnosis Dural arteriovenous fistula documented in this encounter Administered Medications Inactive Administered Medications - up to 3 most recent administrations Medication Order MAR Action Action Date Dose Rate Site acetaminophen (TYLENOL) tablet 1,000 mg 1,000 mg, oral, Every 6 hours PRN, mild pain, moderate pain, headaches, Starting on Fri06/23/24 at 1551 Given 06/24/2024 8:51 AM EST 1,000 mg Given 06/24/2024 3:43 AM EST 1,000 mg Given 06/23/2024 10:57 PM EST 1,000 mg atorvastatin (LIPITOR) tablet 10 mg 10 mg, oral, Nightly, First dose on Fri06/23/24 at 2100 Given 06/23/2024 8:54 PM EST 10 mg brimonidine (ALPHAGAN) 0.2 % ophthalmic solution 1 drop 1 drop, Both Eyes, 3 times daily, First dose on Fri06/23/24 at 2100 Given 06/24/2024 8:17 AM EST 1 drop dextrose (D50W) 50% injection 12.5 g 12.5 g, intravenous, Every 15 min PRN, low blood sugar, moderate hypoglycemia *Patient is Unconscious, NPO, unable to swallow: BG 54 - 69 mg/dl*, Starting on Fri06/23/24 at 1553 dextrose (D50W) 50% injection 25 g 25 g, intravenous, Every 15 min PRN, low blood sugar, severe hypoglycemia *Patient is Unconscious, NPO, unable to swallow: BG LESS than 54 mg/dL*, Starting on Fri06/23/24 at 1553 dextrose 15 gram/60 mL oral solution 15 g 15 g, oral, Every 15 min PRN, low blood sugar, hypoglycemia *Patient conscious AND able to drink and swallow safely*, Starting on Fri06/23/24 at 1553 dextrose 15 gram/60 mL oral solution 30 g 30 g, oral, Every 15 min PRN, low blood sugar, hypoglycemia *Patient conscious AND able to drink and swallow safely*, Starting on Fri06/23/24 at 1553 dorzolamide-timoloL (COSOPT) 22.3-6.8 mg/mL ophthalmic solution 1 drop 1 drop, Both Eyes, 2 times daily, First dose on Fri06/23/24 at 2100 Given 06/24/2024 8:16 AM EST 1 drop famotidine (PF) (PEPCID) injection 20 mg 20 mg, intravenous, Administer over 2 Minutes, Once, On Fri06/23/24 at 1600, For 1 dose Given 06/23/2024 3:57 PM EST 20 mg fentaNYL (PF) (SUBLIMAZE) injection 25 mcg 25 mcg, intravenous, Once, On Fri06/23/24 at 1615, For 1 dose Given 06/23/2024 4:23 PM EST 25 mcg Glucagon HCl (rDNA) injection 1 mg 1 mg, intramuscular, Once as needed, low blood sugar, severe hypoglycemia, Starting on Fri06/23/24 at 1240, For 1 dose insulin lispro injection 1-6 Units 1-6 Units, subcutaneous, 3 times daily before meals, First dose on Fri06/23/24 at 1300, Indication: Total Daily Dose (TDD) LESS than 40 units Correction Scale: Low Dose Administer with meal and/or mealtime dose of insulin to correct high blood glucose If mealtime insulin dose not given (e.g. patient NPO or not eating), still administer correction factor for high blood glucose Given 06/23/2024 5:26 PM EST 1 Units Left Upper Arm (Back) iopamidoL (ISOVUE-300) 300 mg iodine /mL (61 %) solution 150 mL 150 mL, Other, Once in imaging, Starting on Fri06/23/24 at 1527, For 1 dose Given 06/23/2024 3:28 PM EST 150 mL ketorolac (TORADOL) injection 15 mg 15 mg, intravenous, Once, On Fri06/24/24 at 1115, For 1 dose Given by Other 06/24/2024 11:01 AM EST 15 mg levETIRAcetam (KEPPRA) tablet 500 mg 500 mg, oral, 2 times daily, First dose on Fri06/23/24 at 2100 Given 06/24/2024 8:51 AM EST 500 mg Given 06/23/2024 8:54 PM EST 500 mg losartan (COZAAR) tablet 75 mg 75 mg, oral, Daily, First dose (after last modification) on Fri06/24/24 at 0745 Given 06/24/2024 7:37 AM EST 75 mg magnesium oxide (MAG-OX) tablet 400 mg 400 mg, oral, Daily, First dose on Myriam 06/24/24 at 0900 Given 06/24/2024 8:51 AM EST 400 mg niCARdipine (CARDENE) 25 mg in sodium chloride 0.9 % 250 mL (0.1 mg/mL) infusion 2.5-15 mg/hr (25-150 mL/hr), intravenous, Continuous, Starting on Fri06/23/24 at 1800, GOAL EFFECT: SBP LESS than 140 mmHg INITIAL RATE: 5 mg/hr TITRATION DOSE: 2.5 mg/hr TITRATION FREQUENCY: 5 min CONTACT PRESCRIBER: -SBP LESS than 90 mmHg -SBP GREATER than 180 mmHg * Individual cases may deviate from parameters and would REQUIRE an order from the provider documented in the patient record* Assemble with connection adapater. Use ONLY a 250 mL 0.9 % normal saline bag and 25 mg/10 mL niCARdapine vial to prepare. Rate/Dose Change 06/24/2024 7:54 AM EST 2.5 mg/hr 25 mL/hr Rate/Dose Change 06/24/2024 7:15 AM EST 5 mg/hr 50 mL/h r New Bag 06/24/2024 3:36 AM EST 5 mg/hr 50 mL/hr OLANZapine (ZyPREXA) tablet 5 mg 5 mg, oral, Once as needed, for breakthrough nausea, Starting on Fri06/23/24 at 1857, For 1 dose Given 06/23/2024 7:19 PM EST 5 mg ondansetron (PF) (ZOFRAN) 4 mg/2 mL injection - ADS Override Pull Starting on Fri06/23/24 at 1544, For 1 dose, Created by cabinet override ondansetron (PF) (ZOFRAN) injection 4 mg 4 mg, intravenous, Every 6 hours PRN, nausea, vomiting, Starting on Fri06/23/24 at 1541 Given 06/23/2024 5:56 PM EST 4 mg ondansetron (PF) (ZOFRAN) injection 4 mg 4 mg, intravenous, Once, On Fri06/23/24 at 1615, For 1 dose Given 06/23/2024 4:09 PM EST 4 mg pantoprazole (PROTONIX) EC tablet 40 mg 40 mg, oral, 2 times daily, First dose on Fri06/23/24 at 2100, Do not crush, chew, or split. Given 06/24/2024 8: 51 AM EST 40 mg Given 06/23/2024 8:54 PM EST 40 mg sodium phosphates 60 mmol in sodium chloride 0.9 % 500 mL IVPB 60 mmol, intravenous, at 83.3 mL/hr, Administer over 6 Hours, Once, On Fri06/23/24 at 2330, For 1 dose New Bag 06/24/2024 12:30 AM EST 60 mmol 83.3 mL/hr zolpidem (AMBIEN) tablet 10 mg 10 mg, oral, Nightly PRN, sleep, Starting on Fri06/23/24 at 1553 Given 06/23/2024 8:54 PM EST 10 mg documented in this encounter Discontinued Medications Medication Sig Discontinue Reason Start Date End Da te amLODIPine (NORVASC) 5 mg tablet Take 1 tablet (5 mg total) by mouth 1 (one) time each day. 08/13/2022 06/23/2024 diphenhydrAMINE (Banophen) 25 mg capsule TAKE 1 CAPSULE BY MOUTH TWICE A DAY FOR MOTION SICKNESS 05/26/2022 06/23/2024 methocarbamoL (ROBAXIN) 750 mg tablet Take 1 tablet (750 mg total) by mouth. 10/29/2020 06/23/2024 lactulose (CHRONULAC) solution TAKE 15ML BY MOUTH DAILY NEEDED FOR CONSTIPATION, TAKE WITH PLENTY OF FLUIDS Stop Taking at Discharge 06/04/2022 06/24/2024 documented as of this encounter Historical Medications * This list may reflect changes made after this encounter. losartan (COZAAR) 50 mg tablet Take 1 tablet (50 mg total) by mouth 1 (one) time each day. ergocalciferol, vitamin D2, (VITAMIN D2 ORAL) Take by mouth. added in this encounter Active and Recently Administered Medications Times are shown in EST. Scheduled Medication Order 06/22/2024 06/23/2024 06/24/2024 atorvastatin (LIPITOR) tablet 10 mg 10 mg, oral, Nightly, First dose on Fri06/23/24 at 2100 2054 (Given - Provider: Cortez Garland RN) brimonidine (ALPHAGAN) 0.2 % ophthalmic solution 1 drop 1 drop, Both Eyes, 3 times daily, First dose on Fri06/23/24 at 2100 2118 (Not Given - Provider: Cortez Garland RN - Reason: Patient on Leave of Absence - Comment: Pt state she already took them) 0817 (Given - Provider: Cecy Bullard LPN)1400 (Canceled Entry - Provider: Automatic Discharge Provider - Comment: Automatically canceled at discontinue of medication order) dorzolamide-timoloL (COSOPT) 22.3-6.8 mg/mL ophthalmic solution 1 drop 1 drop, Both Eyes, 2 times daily, First dose on Fri06/23/24 at 2100 2119 (Not Given - Provider: Coretz Garland RN - Reason: Patient/Resident/Agent refused - education provided - Comment: Pt stated she already took the med) 0816 (Given - Provider: Cecy Bullard LPN) famotidine (PF) (PEPCID) injection 20 mg (COMPLETED) 20 mg, intravenous, Administer over 2 Minutes, Once, On Fri06/23/24 at 1600, For 1 dose 1557 (Given - Provider: Rita Murdock, HUMBERTO) fentaNYL (PF) (SUBLIMAZE) injection 25 mcg (COMPLETED) 25 mcg, intravenous, Once, On Fri06/23/24 at 1615, For 1 dose 1623 (Given - Provider: Rita Murdock, RN) insulin lispro injection 1-6 Units 1-6 Units, subcutaneous, 3 times daily before meals, First dose on Fri06/23/24 at 1300, Indication: Total Daily Dose (TDD) LESS than 40 units Correction Scale: Low Dose Administer with meal and/or mealtime dose of insulin to correct high blood glucose If mealtime insulin dose not given (e.g. patient NPO or not eating), still administer correction factor for high blood glucose 1300 (Canceled Entry - Provider: Automatic Discharge Provider - Comment: Automatically canceled at discontinue of medication order)1726 (Given - Provider: Rita Murdock RN) 0905 (Not Given - Provider: Cecy Bullard LPN - Reason: Order parameters not met - Comment: checked with meal)1130 (Canceled Entry - Provider: Automatic Discharge Provider - Comment: Automatically canceled at discontinue of medication order) iopamidoL (ISOVUE-300) 300 mg iodine /mL (61 %) solution 150 mL (COMPLETED) 150 mL, Other, Once in imaging, Starting on Fri06/23/24 at 1527, For 1 dose 1528 (Given - Provider: Laura Norwood) ketorolac (TORADOL) injection 15 mg (COMPLETED) 15 mg, intravenous, Once, On Myriam 06/24/24 at 1115, For 1 dose 1101 (Given by Other - Provider: Cecy Bullard LPN - Comment: given by Garima PAUL.) latanoprost (XALATAN) 0.005 % ophthalmic solution 1 drop 1 drop, Both Eyes, Nightly, First dose on Fri06/23/24 at 2100 212 (Not Given - Provider: Cortez Garland RN - Reason: Order parameters not met) levETIRAcetam (KEPPRA) tablet 500 mg 500 mg, oral, 2 times daily, First dose on Fri06/23/24 at 2100 2053 (Given - Provider: Cortez Garland RN) 0851 (Given - Provider: Cecy Bullard LPN) losartan (COZAAR) tablet 75 mg 75 mg, oral, Daily, First dose (after last modification) on Fri06/24/24 at 0745 0737 (Given - Provid er: Cecy Bullard LPN) magnesium oxide (MAG-OX) tablet 400 mg 400 mg, oral, Daily, First dose on Fri06/24/24 at 0900 0851 (Given - Provid er: Cecy Bullard LPN) ondansetron (PF) (ZOFRAN) injection 4 mg (COMPLETED) 4 mg, intravenous, Once, On Fri06/23/24 at 1615, For 1 dose 1609 (Given - Provider: Rita Murdock RN) pantoprazole (PROTONIX) EC tablet 40 mg 40 mg, oral, 2 times daily, First dose on Fri06/23/24 at 2100, Do not crush, chew, or split. 2053 (Given - Provider: Cortez Garland RN) 0851 (Given - Provider: Cecy Bullard LPN) sodium phosphates 60 mmol in sodium chloride 0.9 % 500 mL IVPB (COMPLETED) 60 mmol, intravenous, at 83.3 mL/hr, Administer over 6 Hours, Once, On Fri06/23/24 at 2330, For 1 dose 0030 (New Bag - Prov ider: Cortez Garland RN)0717 (Stopped - Provider: Cortez Garland RN) Continuous Medication Order 06/22/2024 06/23/2024 06/24/2024 niCARdipine (CARDENE) 25 mg in sodium chloride 0.9 % 250 mL (0.1 mg/mL) infusion 2.5-15 mg/hr (25-150 mL/hr), intravenous, Continuous, Starting on Fri06/23/24 at 1800, GOAL EFFECT: SBP LESS than 140 mmHg INITIAL RATE: 5 mg/hr TITRATION DOSE: 2.5 mg/hr TITRATION FREQUENCY: 5 min CONTACT PRESCRIBER: -SBP LESS than 90 mmHg -SBP GREATER than 180 mmHg * Individual cases may deviate from parameters and would REQUIRE an order from the provider documented in the patient record* Assemble with connection adapater. Use ONLY a 250 mL 0.9 % normal saline bag and 25 mg/10 mL niCARdapine vial to prepare. 1700 (New Bag - Provider: Rita Murdock RN)1736 (Rate/Dose Change - Provider: Rita Murdock RN)1745 (Rate/Dose Change - Provider: Rita Murdock RN)1800 (Rate/Dose Change - Provider: Rita Murdock RN)1807 (Canceled Entry - Provider: Rita Murdock RN)1845 (Rate/Dose Change - Provider: Rita Murdock RN)1900 (Stopped - Provider: Riat Murdock RN)2053 (Restarted - Provider: Cortez Garland RN)2218 (Rate/Dose Change - Provider: Cortez Garland RN) 0005 (Rate/Dose Change - Provider: Cortez Garland RN)0032 (Rate/Dose Change - Provider: Cortez Garland, HUMBERTO)0215 (Rate/Dose Change - Provider: Cortez Garland, RN)0230 (Rate/Dose Change - Provider: Cortez Garland, HUMBERTO)0336 (New Bag - Provider: Cortez Garland RN)0715 (Rate/Dose Change - Provider: Cecy Bullard LPN - Comment: rate changed by RN)0754 (Rate/Dose Change - Provider: Cecy Bullard LPN - Comment: changed by RN)0816 (Stopped - Provider: Cecy Bullard LPN - Comment: stopped by RN) PRN Medication Order 06/22/2024 06/23/2024 06/24/2024 acetaminophen (TYLENOL) tablet 1,000 mg 1,000 mg, oral, Every 6 hours PRN, mild pain, moderate pain, headaches, Starting on Fri06/23/24 at 1551 1631 (Given - Provider: Rita Murdock RN)2257 (Given - Provider: Cortez Garland RN) 0343 (Given - Provider: Cortez Garland RN)0851 (Given - Provider: Cecy Bullard LPN) dextrose (D50W) 50% injection 12.5 g 12.5 g, intravenous, Every 15 min PRN, low blood sugar, moderate hypoglycemia *Patient is Unconscious, NPO, unable to swallow: BG 54 - 69 mg/dl*, Starting on Fri06/23/24 at 1553 dextrose (D50W) 50% injection 25 g 25 g, intravenous, Every 15 min PRN, low blood sugar, severe hypoglycemia *Patient is Unconscious, NPO, unable to swallow: BG LESS than 54 mg/dL*, Starting on Fri06/23/24 at 1553 dextrose 15 gram/60 mL oral solution 15 g 15 g, oral, Every 15 min PRN, low blood sugar, hypoglycemia *Patient conscious AND able to drink and swallow safely*, Starting on Fri06/23/24 at 1553 dextrose 15 gram/60 mL oral solution 30 g 30 g, oral, Every 15 min PRN, low blood sugar, hypoglycemia *Patient conscious AND able to drink and swallow safely*, Starting on Fri06/23/24 at 1553 Glucagon HCl (rDNA) injection 1 mg 1 mg, intramuscular, Once as needed, low blood sugar, severe hypoglycemia, Starting on Fri06/23/24 at 1240, For 1 dose OLANZapine (ZyPREXA) tablet 5 mg (COMPLETED) 5 mg, oral, Once as needed, for breakthrough nausea, Starting on Fri06/23/24 at 1857, For 1 dose 1919 (Given - Provider: Rita Murdock RN) ondansetron (PF) (ZOFRAN) injection 4 mg 4 mg, intravenous, Every 6 hours PRN, nausea, vomiting, Starting on Fri06/23/24 at 1541 1756 (Given - Provider: Rita Murdock RN) simethicone (MYLICON) chewable tablet 80 mg 80 mg, oral, 2 times daily PRN, flatulence, indigestion, Starting on Fri06/23/24 at 1553 zolpidem (AMBIEN) tablet 10 mg 10 mg, oral, Nightly PRN, sleep, Starting on Fri06/23/24 at 1553 2054 (Given - Provider: Cortez Garland RN) documented in this encounter Orders Medications Ordered That Terry ht Not Have Been Administered Count Last Ordered Date First Ordered Date dextrose (D50W) 50% injection 12.5 g 1 05/30 dextrose (D50W) 50% injection 25 g 1 2024 dextrose 15 gram/60 mL oral solution 15 g 1 06/23/2024 dextrose 15 gram/60 mL oral solution 30 g 1 06/23/2024 fentaNYL (PF) (SUBLIMAZE) injection 25 mcg 1 06/23/2024 Glucagon HCl (rDNA) injection 1 mg 1 2024 latanoprost (XALATAN) 0.005 % ophthalmic solution 1 drop 1 06/23/2024 losartan (COZAAR) tablet 50 mg 1 06/23/2024 niCARdipine (CARDENE) 25 mg in sodium chloride 0.9 % 250 mL (0.1 mg/mL) infusion 1 06/23/2024 niCARdipine (CARDENE) 25 mg/ 10 mL injection - ADS Override Pull 1 06/23/2024 simethicone (MYLICON) chewab le tablet 80 mg 1 06/23/2024 Lab Orders Without Results Count Last Ordered D ate First Ordered Date POCT GLUCOSE, BLOOD 2 06/23/2024 Admission Count Last Ordered Date First Orde red Date ADMIT TO INPATIENT 1 06/23/2024 Discharge Count Last Ordered Date First Orde red Date DISCHARGE PATIENT 1 06/24/2024 CORE MEASURES Count Last Ordered Date First Ord ered Date REASON FOR NOT ADMINISTERING ANTITHROMBOTIC THERAPY BY EOD 2 1 06/23/2024 REASON FOR NOT INITIATING IV THROMBOLYTIC 1 06/23/2024 documented in this encounter Care Teams Die Out Worker Relationship Specialty Start Date End Date Physician, No Pcp PCP - General 06/23/24 documented as of this encounter
--- OUTSIDE RECORDS SUMMARY | 2024-07-08 18:17 | XMS_ITS | Encounter Summary ---
Author Organization [facility] Address [id number] [place] [phone] Care Team Providers Care Muck Miner Name Role Phone Physician, No Pcp Primary Care Provider Unavaila ble Reason for Visit * Auth/Cert (Routine) Specialty Diagnoses / Procedures Referred By Contac t Referred To Contact Diagnoses na Procedures na [facility] [id number] [place] [phone] [facility] [address] [place] [phone] Phone: tel: Referral ID Status Reason Start Date Expiration Date Visits Re quested Visits Authorized [id number] 1 1 Encounter Details Date Type Department Care Team (Late st Contact Info) Description 06/23/2024 11:41 AM EST Anesthesia Event [facility] [address] [place] [id number] Columba Gomez MD [address] [place] [id number] Yousuf Yao DO [address] [place] [id number] Anesthesia Record Procedure Summary Procedure Name Responsible Anesthesiologist Anesthesia Start Time Anesthesia Stop Time IR TRANSCATH OCCLUSION/EMBOLIZAT ION DROP FORGER PERC Columba Gomez MD 06/23/24 1141 06/23/24 1533 Events Date Time Event Comment 06/23/2024 1100 1141 An Start 1141 An Start Data The patient wa s reevaluated immediately before moderate or deep sedation use and before anesthesia induction. 1150 An Induction 1153 An Intubation 1159 Anesthesia Ready 1514 An Extubation 1521 an stop data 1525 Transport to PACU/ICU Patien t reassessed and ready for transfer, airway stable. Patient transport to designated recovery area. {Transport to PACU/ICU:[id number]} 1533 An Stop 1533 Handoff to RN I completed my handoff to the receiving nurse during which we: 1. Identified the patient 2. Identified the responsible provider 3. Reviewed the pertinent medical history 4. Discussed the surgical course 5. Reviewed intra-op anesthesia management and issues during anesthesia 6. Set expectations for post-procedure period 7. Allowed opportunity for questions and acknowledgement of understanding. Meds Name Total midazolam 1 mg/mL 2 mg fentaNYL (SUBLIMAZE) injection 100 mcg propofol (DIPRIVAN) injection 10 mg/mL 1 80 mg rocuronium 130 mg ondansetron 2 mg/mL 4 mg dexamethasone (DECADRON) injection 4 mg/ mL 4 mg heparin injection 1,000 units/mL 8,000 U nits sugammadex (BRIDION) injection 100 mg/mL 200 mg lactated Ringer's infusion 500 mL * Agents No agents on file. * Blood No blood administrations on file. Lines, Drains, and Airways Type Details Placement Removal ETT Placement Date: 05/30 10/20; Placement Time: 1153; Mask Ventilation: 1; Technique: Direct laryngoscopy; Type: ETT; Single Lumen Tube Size: 7 mm; Cuffed: Yes; Laryngoscope: Vogel; Blade Size: 3; Location: Oral; Grade View: Grade IIb; Insertion Attempts: 1; Placement Verification: Auscultation, ETCO2; Removal Date: 06/23/24; Removal Time: 1514 06/23/24 1153 by Yousuf Yao DO 06/23/24 1514 by Columba Gomez MD Arterial Sheath 06/23/24; 1223; 5 Fr .; Right; Femoral; Yes; tahira guevara; None (general anesthesia); Chlorhexidine; Yes; Angio-Seal; 06/23/24; 1503; 10 min(s); 1506; tahira guevara; Other (Comment) (procedure complete); No complications 06/23/24 1223 by Ira Yañez RN 06/23/24 1503 by Ira Yañez RN Arterial Line Placement Date: 05/30 10/20; Placement Time: 1333 (created via procedure documentation); Removal Date: 06/23/24; Removal Time: 1654; Removal Reason: Other (Comment) 06/23/24 1333 by Yousuf Yao, DO 06/23/24 1654 by Rita Murdock RN Peripheral IV Placement Date: 05/30 10/20; Placement Time: 1555; Catheter Size: 20 G; Orientation: Left, Posterior; Location: Hand; Local Anesth: None; Insertion Attempts: 1; Patient Tolerance: Tolerated well; Removal Date: 06/24/24; Removal Time: 1113 06/23/24 1555 by Rita Murdock RN 06/24/24 1113 by Cecy Bullard LPN documented in this encounter Social History Tobacco Use Types Packs/Day Years [...] care for your loved ones. 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 [...] as of this encounter Progress Notes * Columba Gomez MD - 06/23/2024 3:38 PM EST Patient: Harriett Freire Procedure Summary Date: 06/23/24 Room / Location: [facility] Anesthesia Start: 1141 Anesthesia Stop: 1533 Procedure: IR TRANSCATH OCCLUSION/EMBOLIZATION DROP FORGER PERC Diagnosis: Dural arteriovenous fistula Dural arteriovenous fistula Scheduled Providers: Jackson Villatoro MD Responsible Provider: Columba Gomez MD Anesthesia Type: general ASA Status: 3 Anesthesia Plan: general See ICU flowsheet Pain Score: 2 Anesthesia Post Evaluation Patient location during evaluation: ICU Patient participation: complete - patient participated Level of consciousness: awake Pain score: 2 Pain management: adequate Airway patency: patent Anesthetic complications: no Cardiovascular status: acceptable Respiratory status: spontaneous ventilation, unassisted and face mask Hydration status: euvolemic Nausea: No Vomiting: No No notable events documented. * Yousuf Yao DO - 06/23/2024 1:33 PM ESTAssociated Order(s): Arterial Line Arterial Line Performed by: Yousuf Yao DO Authorized by: Yousuf Yao DO * Yousuf Yao DO - 06/23/2024 1:30 PM ESTAssociated Order(s): Intubation General Information and Staff Patient location during procedure: OR Anesthesiologist: Yousuf Yao DO Performed: anesthesiologist Performed by: Yousuf Yao DO Authorized by: Yousuf Yao DO Intubation Urgency: elective Final Airway Details Successful [...] difficulty assessment: 1 - vent by mask * Yousuf Yao DO - 06/23/2024 11:00 AM EST 74 y.o. female scheduled for Dural arteriovenous fistula [IR PLCMNT CATH ICA ANGIO ICC BILAT] Ht Readings from Last 1 Encounters: 06/23/24 1.676 m (66 ) Wt Readings from Last 1 Encounters: 06/23/24 101 kg (222 lb) Body mass index is 35.83 kg/m??. Past Medical History: Diagnosis Date GERD (gastroesophageal reflux disease) DX:GERD (gastroesophageal reflux disease) Glaucoma DX:Glaucoma HLD (hyperlipidemia) DX:HLD (hyperlipidemia) Past Surgical History: Procedure Laterality Date EXPLORATORY LAPAROTOMY W/ BOWEL RESECTION 2008 PROCEDURE:EXPLORATORY LAPAROTOMY W/ BOWEL RESECTION;COMMENT:for perforated bowel, no ostomy Anesthesia complications Denies Allergies Allergen Reactions Penicillins Unknown Aspirin Other and Rash GI upset only Terbinafine Rash Prior to Admission medications Medication Sig Start Date End Date Taking? Authorizing Provider brimonidine (ALPHAGAN) 0.2 % ophthalmic solution 1 drop. 06/07/22 Yes Historical Provider, dicyclomine (BENTYL) 20 mg tablet Take 1 tablet (20 mg total) by mouth. 06/25/22 Yes Historical Provider, dorzolamide-timoloL (COSOPT) 22.3-6.8 mg/mL ophthalmic solution Administer 1 drop into both eyes 2 (two) times a day. 09/28/20 Yes Historical Provider, ergocalciferol, vitamin D2, (VITAMIN D2 ORAL) Take by mouth. Yes Historical Provider, latanoprost (XALATAN) 0.005 % ophthalmic solution 1 drop. 06/07/22 Yes Historical Provider, levETIRAcetam (KEPPRA) 500 mg tablet Take 1 tablet (500 mg total) by mouth 2 (two) times a day. 08/13/22 Yes Historical Provider, losartan (COZAAR) 50 mg tablet Take 1 tablet (50 mg total) by mouth 1 (one) time each day. Yes Historical Provider, meclizine (ANTIVERT) 12.5 mg tablet Take 1 tablet (12.5 mg total) by mouth. 09/20/18 Yes Historical Provider, pantoprazole (PROTONIX) 40 mg EC tablet Take 1 tablet (40 mg total) by mouth 2 (two) times a day. 05/17/22 Yes Historical Provider, senna 8.6 mg tablet TAKE 2 TABLET BY MOUTH DAILY FOR CONSTIPATION WITH PLENTY OF WATER. 04/11/22 Yes Historical Provider, simethicone (MYLICON) 80 mg chewable tablet CHEW 1 TABLET BY MOUTH TWICE A DAY NEEDED 05/27/22 Yes Historical Provider, simvastatin (ZOCOR) 20 mg tablet Take 1 tablet (20 mg total) by mouth. 05/30/22 Yes Historical Provider, zolpidem (AMBIEN) 10 mg tablet Take 1 tablet (10 mg total) by mouth. 05/29/22 Yes Historical Provider, amLODIPine (NORVASC) 5 mg tablet Take 1 tablet (5 mg total) by mouth 1 (one) time each day. Patient not taking: Reported on 06/23/2024 08/13/22 Historical Provider, diphenhydrAMINE (Banophen) 25 mg capsule TAKE 1 CAPSULE BY MOUTH TWICE A DAY FOR MOTION SICKNESS Patient not taking: Reported on 06/23/2024 05/26/22 Historical Provider, lactulose (CHRONULAC) solution TAKE 15ML BY MOUTH DAILY NEEDED FOR CONSTIPATION, TAKE WITH PLENTY OF FLUIDS Patient not taking: Reported on 06/23/2024 06/04/22 Historical Provider, methocarbamoL (ROBAXIN) 750 mg tablet Take 1 tablet (750 mg total) by mouth. Patient not taking: Reported on 06/23/2024 10/29/20 Historical Provider, I have personally reviewed all the patient's medications with them prior to anesthesia. Current In-hospital Medications Social History Tobacco Use Smoking status: Never Smokeless tobacco: Never Substance Use Topics Alcohol use: Not Currently Drug use: Never Is the patient a current smoker (e.g. cigarette, cigar, pip, e-cigarette, or mariajuana)? Yes [] No[] Patient previously instructed to abstain from smoking on the day of procedure? Yes [] No[] Patient smoked on the day of procedure? Yes [] No[] ASPIRE smoking VBR: [] Not interested in quitting [] Interested in quitting- referred to treatment [] Interested in quitting - treatment provided Visit Vitals BP 134/55 (BP Location: Right arm, Patient Position: Sitting) Pulse 77 Temp 36 ??C (96.8 ??F) (Temporal) Resp 15 Ht 1.676 m (66 ) Wt 101 kg (222 lb) SpO2 96% BMI 35.83 kg/m?? Smoking Status Never BSA 2.09 m?? LABS: Lab Results Component Value Date WBC 4.1 06/15/2024 HGB 13.5 06/15/2024 HCT 39.3 06/15/2024 MCV 97.1 06/15/2024 PLT 197 06/15/2024 Lab Results Component Value Date GLUCOSE 125 (H) 06/15/2024 CALCIUM 8.9 06/15/2024 NA 143 06/15/2024 K 4.1 06/15/2024 CO2 28 06/15/2024 CL 108 (H) 06/15/2024 BUN 14 06/15/2024 CREATININE 0.80 06/15/2024 Lab Results Component Value Date INR 1.0 06/15/2024 No results found for: PTT Relevant Problems Cardio (+) AVM (arteriovenous malformation) (+) Cerebral arteriovenous malformation (AVM) Neuro/Psych (+) TIA (transient ischemic attack) Clinical information reviewed: Allergies Meds Anesthesia Plan ASA 3 Anesthesia Plan: general General Anesthesia Considerations: ETT Anesthesia Risks Discussed dental injury, nausea, pain, sore throat, corneal abrasion, allergic reaction and serious complications Monitoring Considerations arterial line Plan Factors Patient is not a current smoker Induction method: intravenous Postoperative administration of opioids is intended. Trial extubation is planned. Anesthetic plan and risks discussed with patient. Anesthesia Plan discussed with surgeon. Anesthesia Evaluation Airway Mallampati: II Thyromental distance: > 3 finger breadths Neck ROM: fullnot intubatedno noted risk Dental - normal exam Pulmonary - normal exam breath sounds clear to auscultation Cardiovascular - normal exam Rhythm: regular Rate: normal Neuro/Psych Mental Status: alert and oriented - neuro/psych exam normal GI/Hepatic/Renal Endo/Other Abdominal - normal exam PONV RISK SCORE: 2 Vitals: 06/23/24 0842 BP: 134/55 BP Location: Right arm Patient Position: Sitting Pulse: 77 Resp: 15 Temp: 36 ??C (96.8 ??F) TempSrc: Temporal SpO2: 96% Weight: 101 kg (222 lb) Height: 1.676 m (66 ) SpO2 Readings from Last 1 Encounters: 06/23/24 96% WBC Date Value Ref Range Status 06/15/2024 4.1 4.0 - 10.5 K/mcL Final RBC Date Value Ref Range Status 06/15/2024 4.04 (L) 4.20 - 5.40 M/mcL Final Hemoglobin Date Value Ref Range Status 06/15/2024 13.5 12.5 - 16.0 g/dL Final Hematocrit Date Value Ref Range Status 06/15/2024 39.3 37.0 - 47.0 % Final Platelets Date Value Ref Range Status 06/15/2024 197 150 - 450 K/mcL Final MCV Date Value Ref Range Status 06/15/2024 97.1 78.0 - 100.0 FL Final Allergies Allergen Reactions Penicillins Unknown Aspirin Other and Rash GI upset only Terbinafine Rash STOP BANG: No data recorded NPO Status: No data recorded documented in this encounter Plan of Treatment Not on file documented as of this encounter Procedures Procedure Name Priority Date/Time Associated Diagnosis Comments TH AN ARTERIAL LINE (CHARGE) Routine 06/23/2024 1:33 PM EST TH AN ENDOTRACHEAL(NO CHARGE) Routine 06/23/2024 1:30 PM EST documented in this encounter Results * TH AN ARTERIAL LINE (CHARGE) (06/23/2024 1:33 PM EST) Yousuf Woodard DO - 06/23/2024 1:33 PM EST Yousuf Yao DO ? 06/23/2024 ??1:33 PM Arterial Line Performed by: Yousuf Yao DO Authorized by: Yousuf Yao DO ?? us Yousuf Yao DO ANESTHESIA ORDERABLES Final Resu lt * TH AN ENDOTRACHEAL(NO CHARGE) (06/23/2024 1:30 PM EST) Yousuf Woodard DO - 06/23/2024 1:30 PM EST Yousuf Yao DO ? 06/23/2024 ??1:32 PM General Information [...] Yao DO ANESTHESIA ORDERABLES Final Resu lt documented in this encounter Visit Diagnoses Not on filedocumented in this encounter Administered Medications Inactive Administered Medications - up to 3 most recent administrations Medication Order MAR Action Action Date Dose Rate Site dexAMETHasone (DECADRON) injection intravenous, As needed, Starting on Fri06/23/24 at 1413, Anesthesia Intraprocedure Given 06/23/2024 2:13 PM EST 4 mg fentaNYL (PF) (SUBLIMAZE) injection intravenous, As needed, Starting on Fri06/23/24 at 1152, Anesthesia Intraprocedure Given 06/23/2024 11:54 AM EST 50 mcg Given 06/23/2024 11:52 AM EST 50 mcg heparin (UFH) injection intravenous, As needed, Starting on Fri06/23/24 at 1235, Anesthesia Intraprocedure Given 06/23/2024 12:35 PM EST 8,000 Units lactated Ringer's infusion intravenous, Continuous PRN, Starting on Fri06/23/24 at 1141, Anesthesia Intraprocedure New Bag 06/23/2024 2:49 PM EST New Bag 06/23/2024 11:41 AM EST 100 mL/hr midazolam (VERSED) injection intravenous, As needed, Starting on Fri06/23/24 at 1144, Anesthesia Intraprocedure Given 06/23/2024 11:44 AM EST 2 mg ondansetron (PF) (ZOFRAN) injection intravenous, As needed, Starting on Fri06/23/24 at 1413, Anesthesia Intraprocedure Given 06/23/2024 2:13 PM EST 4 mg propofoL (DIPRIVAN) injection intravenous, As needed, Starting on Fri06/23/24 at 1150, Anesthesia Intraprocedure Given 06/23/2024 2:38 PM EST 3 0 mg Given 06/23/2024 11:50 AM EST 150 mg rocuronium (ZEMURON) injection intravenous, As needed, Starting on Fri06/23/24 at 1151, Anesthesia Intraprocedure Given 06/23/2024 2:30 PM EST 1 0 mg Given 06/23/2024 1:52 PM EST 20 mg Given 06/23/2024 12:56 PM EST 20 mg sugammadex (BRIDION) 100 mg/mL injection intravenous, As needed, Starting on Fri06/23/24 at 1504, Anesthesia Intraprocedure Given 06/23/2024 3:04 PM EST 2 00 mg documented in this encounter Care Teams Muck Miner Relationship Specialty Start Date End Date Physician, No Pcp PCP - General 06/23/24 documented as of this encounter
--- OUTSIDE RECORDS SUMMARY | 2024-07-08 18:18 | XMS_ITS | Clinical Summary ---
Author Organization [facility] Facility Address [address] [address] Care Team Providers Care Ferry Boat Captain Name Role Phone Unavailable Primary Care Provider Unavailabl e Social History Tobacco Use Types Packs/Day Years Used Date Smoking Tobacco: Never Assessed Comments Unknown Sex and Gender Information Value Date Recorded Sex Assigned at Not on file Legal Sex Female 11:51 AM EDT Gender Identity Not on file Sexual Orientation Not on file Plan of Treatment Health Maintenance Due Date Last Done Comments Breast Cancer Screening 1950 Colorectal Cancer Screening: Annual FOBT 02/17/2000 Colorectal Cancer Screening: Colonoscopy 02/17/2000 Colorectal Cancer Screening: Sigmoidoscopy 02/17/2000 Influenza Vaccine (#1) 2023 Pneumococcal Vaccine: 65+ Years Completed 09/03/2017, 07/03/2016, 04/08/2011 Hepatitis B Vaccine Aged Out No longe r eligible based on patient's age to complete this topic
--- OUTSIDE RECORDS SUMMARY | 2024-07-08 18:18 | XMS_ITS | Continuity of Care Document ---
Author Organization [facility] Address [address] [place] [phone]- Care Team Providers Care Learning Analyst Name Role Phone Passer Smiley [place] Primary Care Physician [place] [facility] [place]21[place]24 - 06/20/24 [facility] [address] [address]- Encounter Type: Triage Allergies, Adverse Reactions, Alerts [...] 02/10/12 Gi dale tetanus-diphtheria toxoids (Td) 3 6/22/05 Given 1Admin Note: GIVEN VIS 11/23/96 2Admin Note: VIS10/28/2011 3Admin Note: GIVEN BY [facility]. Medications acetaminophen 650 mg oral tablet, extended release 2 tablet, By Mouth, Every 8 hours, PRN NEEDED FOR PAIN, # 100 tablet, 2 Refills, Maintenance, 03/26/24 1:44:00 PM EST, [id number], 168, cm, 03/19/24 14:34:00 EST, Height, 106.2, [...] 6 Refills, Maintenance, 01/16/24 5:12:00 PM EDT, [id number], 90, TOME DEVYN TABLETA POR BOCA DEVYN [...] 11:22:00 AM EST, Route to Pharmacy Electronically, [facility]/pharmacy #[id number], Partial fill upon patient request if the prescription is for a schedule II opioid drug., 168, cm, 04/15/24 11:02:00 EST, Height, 106.2, kg, 03/19/24 14:28:00 EST, Dry Weight Start Date: 04/15/24 Status: Ordered Quantity: 120.0 Unit: tablet Repeat number: 4 Indication: Epigastric pain ciclopirox 8% topical solution 1 application, Topically, Daily, for fungus label in austrian, # 6.6 mL, 2 Refills, Maintenance, 03/19/24 3:22:00 PM EST, Solution, [facility]/pharmacy #[id number], Partial fill upon patient request if the prescription is for a schedule II opioid drug., 1 application Topically Daily,Instr:for fungus; label in austrian, 168, cm, 03/19/24 14:34:00 EST, Height, 106.2, kg, 03/19/24 14:28:00 EST, Dry Weight Start Date: 03/19/24 Status: Ordered Quantity: 6.6 Unit: mL Repeat number: 3 diclofenac 1% topical gel = 2 Gm, Topically, 4 times a day, not to exceed 16 grams/day/single joint of lower extremities label in austrian, # 100 Gm, 6 Refills, Maintenance, 09/17/23 6:36:00 PM EDT, Gel, [facility]/pharmacy #[id number], Partial fill upon patient [...] Maintenance, 05/05/24 1:46:00 PM EST, [id number], 168, cm, 04/15/24 11:02:00 EST, Height, 106.2, [...] 08/13/24 11:27:00 AM EDT, 04/15/2411:27:00 AM EST, [facility]/pharmacy #[id number], Partial fill upon patient [...] 1 Refills, Maintenance, 05/20/24 8:35:00 AM EST, [facility]/pharmacy #[id number], 168, cm, 04/15/24 11:02:00 EST, Height, 106.2, kg, 03/19/24 14:28:00 EST, Dry Weight Start Date: 05/20/24 Status: Ordered Quantity: 180.0 Unit: tablet Repeat number: 2 losartan 50 mg oral tablet 50 mg, 1, tablet, By Mouth, Daily, for blood pressure dosage adjustment label in austrian, # 90 tablet, Refills 1, Tot. Refills 1, Maintenance, 03/19/24 3:22:00 PM EST, [id number] fill upon patient request [...] 3 Refills, Maintenance, 05/21/24 11:33:00 AM EST, [facility]/pharmacy #[id number], 168, cm, 04/15/24 11:02:00 [...] EDT, 04/27/24 11:59:00 AM EST, [id number] Partial fill upon patient request [...] a day, FOR ABDOMINAL PAIN LABEL IN THAI, # 180 tablet, 1 Refills, Maintenance, 01/30/24 [...] Maintenance, 04/15/24 11:27:00 AM EST, [facility], [facility]/pharmacy #[id number], Partial fill upon patient [...] 6 Refills, Maintenance, 12/04/23 11:17:00 AM EDT, [id number], 168, cm, 07/03/2414:43:00 EST, Height, 98.18, kg, 07/04/23 15:43:00 EST, Dry Weight Start Date: 12/04/23 Status: Ordered Quantity: 180.0 Unit: tablet Repeat number: 1 simvastatin 20 mg oral tablet 20 mg, 1, tablet, By Mouth, Daily at bedtime, for cholesterol label in austrian, # 90 tablet, Refills 1, Tot. Refills 1, Maintenance, 03/19/24 3:22:00 PM EST, Route to Pharmacy Electronically, [facility]/pharmacy #[id number], Partial fill upon patient request if the prescription is for a schedule II opioid drug., 168, cm, 03/19/24 14:34:00 EST, Height, 106.2, kg, 03/19/24 14:28:00 EST, Dry Weight Start Date: 03/19/24 Status: Ordered Quantity: 90.0 Unit: tablet Repeat number: 2 zolpidem 10 mg oral tablet 1 tablet = 10 mg, By Mouth, Daily at bedtime, for sleep label in austrian, # 30 tablet, 1 Refills, Maintenance, 06/17/24 10:57:00 AM EST, [facility]/pharmacy #[id number], Partial fill upon patient request if the [...] Active Bilateral chronic knee pain Confirmed Active *[id number] Nail Technician Gunjan Vidal Confirmed Active Severe obesity (BMI [...] Personnel Name: Shai RODRÍGUEZ, Osman Hernández Position: [facility] Renal MD Member Role: Lifetime Consulting Physician Address: [address] [place] [address] [address] [facility] [place] [address]- [place] Tele[employer]: Name: Sharon Grossman RN Position: [facility] TOOLS ADMINISTRATOR No Tools Member Role: Primary Care Nurse Name: Alessandra Low LPN Position: [facility] RN Member Role: Primary Care Nurse Name: Sharita Gonsales RN Position: [facility] RN Member Role: Primary Care Nurse Name: Smiley Scott Position: [facility] PCO Associate Professional Member Role: PCP Address: [address] [place] [phone]- Telecom: Care Team Related Persons Name: ROSSANA LOPEZ Name: SUELLEN DOSS Insurance Providers Guarantor name: JONNIE HOLT Health Plan Information #: 1 Payer: NA Member Number: NA Policy Number: NA Group Number: NA
--- OUTSIDE RECORDS SUMMARY | 2024-07-08 18:18 | XMS_ITS | Clinical Summary ---
Author Organization [facility] Address [address] [place] [address] Care Team Providers Care Hand Mounter Name Role Phone Unavailable Primary Care Provider Unavailabl e Allergies Active Allergy Reactions Criticality Noted Date Comments Aspirin Other (See Comments) Low 06/29/2022 GI upset only Terbinafine Rash Low 06/29/2022 Medications Medication Sig Dispensed Refills Start Date End Date Status simvastatin (ZOCOR) tablet 20 mg Take 1 tablet (20 mg total) by mouth every night at bedtime. 0 05/30/2022 Active zolpidem (AMBIEN) 10 MG tablet Take 1 tablet (10 mg total) by mouth every night at bedtime. 0 05/29/2022 Active simethicone (MYLICON) 80 MG chewable tablet CHEW 1 TABLET BY MOUTH TWICE A DAY NEEDED 0 05/27/2022 Active Senna-Time 8.6 MG tablet TAKE 2 TABLET BY MOUTH DAILY FOR CONSTIPATION WITH PLENTY OF WATER. 0 04/11/2022 Active pantoprazole (PROTONIX) 40 MG tablet Take 1 tablet (40 mg total) by mouth 2 (two) times a day. 0 05/17/2022 Active latanoprost (XALATAN) 0.005 % ophthalmic solution Place 1 drop into both eyes every night at bedtime. 0 06/07/2022 Active lactulose (CHRONULAC) 10 GM/15ML solution TAKE 15ML BY MOUTH DAILY NEEDED FOR CONSTIPATION, TAKE WITH PLENTY OF FLUIDS 0 06/04/2022 Active dorzolamide-timolo l (COSOPT) 22.3-6.8 MG/ML ophthalmic solution INSTILL 1 DROP INTO BOTH EYES TWICE A DAY 0 09/28/2020 Active Banophen 25 MG capsule 0 05/26/2022 Active dicyclomine (BENTYL) 20 MG tablet Take 1 tablet (20 mg total) by mouth 4 (four) times a day with meals and at bedtime. 0 06/25/2022 Active brimonidine (ALPHAGAN) 0.2 % ophthalmic solution Place 1 drop into both eyes 2 (two) times a day. 0 06/07/2022 Active amLODIPine (NORVASC) tablet 5 mg Take 1 tablet (5 mg total) by mouth daily. 30 tablet 0 08/13/2022 Active levETIRAcetam (KEPPRA) 500 MG tablet Take 1 tablet (500 mg total) by mouth 2 (two) times a day. 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 08/01 Cerebral arteriovenous malformation (AVM) 2022 TIA (transient ischemic attack) 06/29/2022 AVM (arteriovenous malformation) 06/29/2022 Family History Medical History Relation Name Comments Heart attack Father Stroke Mother in sleep possibly from stroke Relation Name Status Comments Father Mother Social History Tobacco Use Types Packs/Day Years Used Date Smoking Tobacco: Never Smokeless Tobacco: Never Tobacco Cessation:Counseling Given: Not Answered Alcohol Use Standard Drinks/Week Comments Not Currently 0 (1 standard drink = 0.6 oz pur e alcohol) Sex and Gender Information Value Date Recorded Sex Assigned at Female 06/29/2022 5:31 PM EST Gender Identity Not on file Sexual Orientation Not on file Job Start Date Occupation Industry Not on file Not on file Not on file Last Filed Vital Signs Vital Sign Reading Time Taken Comments Blood Pressure 125/57 06/18/2023 2:45 PM EST Pulse 96 06/18/2023 2:45 PM EST Temperature 36.2 ??C (97.1 ??F) 06/18/2023 10:[address] Respiratory Rate 11 06/18/2023 2:45 PM EST Oxygen Saturation 97% 06/18/2023 2:45 PM EST Inhaled Oxygen Concentration - - Weight 98.9 kg (218 lb) 06/18/2023 6:59 AM EST Height 167.6 cm (5' 6 ) 06/18/2023 6:59 AM EST Body Mass Index 35.19 06/18/2023 6:59 AM EST Plan of Treatment Health Maintenance Due Date Last Done Comments Hepatitis C Screening 1950 COVID-19 Vaccine (#1) 1951 Depression Screening 1963 BMI Counseling 1969 Preventative Health Evaluation 1969 Colon Cancer Screening (Colonoscopy) 02/17/1996 Breast Cancer Screening (Mammogram) 2001 Shingrix-Zoster Vaccine (1 o f 2) 2001 Fall Risk Assessment 02/17/2016 Osteoporosis Screening (DEXA Scan) 02/17/2016 Influenza Vaccine (#1) 2023 5, 02/10/2012 RSV Adult > 60+ Yrs or (1 - 1-dose 75+ series) 2026 DTap / Tdap / Td (3 - Td or Tdap) 09/17/2028 09/17/2018, 06/16/2014, 10/17/2004 Pneumococcal Vaccine Completed 09/03/2017, 07/03/2016, 04/08/2011 Hepatitis B Vaccines Aged Out No long er eligible based on patient's age to complete this topic RSV Ped < 20 months Aged Out No longe r eligible based on patient's age to complete this topic Medical Devices Implanted Type Area Math Instructor Device Identifier Shelf Expiration Date Model / Serial / Lot Embolic Syst Liq [place] 18 Medt-[id number] - [id number] Implanted:Qty: 2 on 07/03/2022 at [facility] [place] [facility] [employer] - CARDIAC RHYTH-CRDM 08/24/2023 [id number] / / [id number] Advance Directives For more information, please contact: [phone] Latest Code Status on File Code Status Date Activated Date Inactivated Comments Full Code 06/18/2023 8:49 AM 06/18/2023 10:10 AM This code status was ascertained in the following way: discussion with patient . Code Status History Code Status Date Activated Date Inactivated Comments Full Code 09/18/2022 10:02 PM 09/19/2022 10:05 PM Thi s code status was ascertained in the following way: presumed . Full Code 08/01/2022 5:58 PM 08/02/2022 9:46 PM This co de status was ascertained in the following way: Discussion with patient and patient's daughters Full Code 08/01/2022 1:57 PM 08/01/2022 5:58 PM This co de status was ascertained in the following way: Presumed Full Code 06/29/2022 5:48 PM 07/05/2022 8:14 PM This c ode status was ascertained in the following way: discussion with patient .
--- OUTSIDE RECORDS SUMMARY | 2024-07-08 18:18 | XMS_ITS | Continuity of Care Document ---
Author Organization [facility] Address [address] [place] [phone] [facility] Name Relationship Address Phone SELAMYOSVANYSUELLEN child Unknown Unavailable DINC, SULIDI child Unknown Unavailable DNC, SULIDI child Unknown Unavailable YANET, PREICILLA child Unknown Unavailable JONNIE HOLT Personal Relationship Unknown Unavai labJONNIE Riggs Personal Relationship Unknown Unavai lable Care Team Providers Care Semiconductor Assembler Name Role Phone Passer Smiley [place] Primary Care Physician [place] [facility] [place] - 06/12/24 [facility] [address] [place] [address] Encounter Type: Triage Allergies, Adverse Reactions, Alerts [...] 2 Refills, Maintenance, 03/26/24 1:44:00 PM EST, [facility] [id number], 168, cm, 03/19/24 14:34:00 EST, Height, 106.2, [...] 6 Refills, Maintenance, 01/16/24 5:12:00 PM EDT, [facility]ORE [id number], 90, TOME DEVYN TABLETA POR BOCA DEVYN [...] 11:22:00 AM EST, Route to Pharmacy Electronically, [facility]/pharmacy #[id number], Partial fill upon patient request if the prescription is for a schedule II opioid drug., 168, cm, 04/15/24 11:02:00 EST, Height, 106.2, kg, 03/19/24 14:28:00 EST, Dry Weight Start Date: 04/15/24 Status: Ordered Quantity: 120.0 Unit: tablet Repeat number: 4 Indication: Epigastric pain ciclopirox 8% topical solution 1 application, Topically, Daily, for fungus label in moldovan, # 6.6 mL, 2 Refills, Maintenance, 03/19/24 3:22:00 PM EST, Solution, [facility]/pharmacy #[id number], Partial fill upon patient request if the prescription is for a schedule II opioid drug., 1 application Topically Daily,Instr:for fungus; label in moldovan, 168, cm, 03/19/24 14:34:00 EST, Height, 106.2, kg, 03/19/24 14:28:00 EST, Dry Weight Start Date: 03/19/24 Status: Ordered Quantity: 6.6 Unit: mL Repeat number: 3 diclofenac 1% topical gel = 2 Gm, Topically, 4 times a day, not to exceed 16 grams/day/single joint of lower extremities label in moldovan, # 100 Gm, 6 Refills, Maintenance, 09/17/23 6:36:00 PM EDT, Gel, [facility]/pharmacy #[id number], Partial fill upon patient [...] 1 Refills, Maintenance, 05/05/24 1:46:00 PM EST, [facility] STORE [id number], 168, cm, 04/15/24 11:02:00 EST, Height, 106.2, [...] 08/13/24 11:27:00 AM EDT, 04/15/2411:27:00 AM EST, [facility]/pharmacy #[id number], Partial fill upon patient [...] 500 mg oral tablet See Instructions, NEYMAR SHEPARD TABLETA POR VIA ORAL DOS VECES AL ALONSO, # 180 tablet, 1 Refills, Maintenance, 05/20/24 8:35:00 AM EST, [facility]/pharmacy #[id number], 168, cm, 04/15/24 11:02:00 EST, Height, 106.2, kg, 03/19/24 14:28:00 EST, Dry Weight Start Date: 05/20/24 Status: Ordered Quantity: 180.0 Unit: tablet Repeat number: 2 losartan 50 mg oral tablet 50 mg, 1, tablet, By Mouth, Daily, for blood pressure dosage adjustment label in moldovan, # 90 tablet, Refills 1, Tot. Refills 1, Maintenance, 03/19/24 3:22:00 PM EST, [id number] fill upon patient request if [...] 3 Refills, Maintenance, 05/21/24 11:33:00 AM EST, [facility]/pharmacy #[id number], 168, cm, 04/15/24 11:02:00 [...] EDT, 04/27/24 11:59:00 AM EST, REC Powder, [facility]/pharmacy #[id number], Partial fill upon patient [...] a day, FOR ABDOMINAL PAIN LABEL IN [place], # 180 tablet, 1 Refills, Maintenance, 01/30/24 [...] Maintenance, 04/15/24 11:27:00 AM EST, REC Powder, [facility]/pharmacy #[id number], Partial fill upon patient [...] 6 Refills, Maintenance, 12/04/23 11:17:00 AM EDT, [facility] STORE [id number], 168, cm, 07/03/2414:43:00 EST, Height, 98.18, kg, 07/04/23 15:43:00 EST, Dry Weight Start Date: 12/04/23 Status: Ordered Quantity: 180.0 Unit: tablet Repeat number: 1 simvastatin 20 mg oral tablet 20 mg, 1, tablet, By Mouth, Daily at bedtime, for cholesterol label in moldovan, # 90 tablet, Refills 1, Tot. Refills 1, Maintenance, 03/19/24 3:22:00 PM EST, Route to Pharmacy Electronically, [facility]/pharmacy #[id number], Partial fill upon patient request if the prescription is for a schedule II opioid drug., 168, cm, 03/19/24 14:34:00 EST, Height, 106.2, kg, 03/19/24 14:28:00 EST, Dry Weight Start Date: 03/19/24 Status: Ordered Quantity: 90.0 Unit: tablet Repeat number: 2 zolpidem 10 mg oral tablet 1 tablet = 10 mg, By Mouth, Daily at bedtime, for sleep label in moldovan, # 30 tablet, 1 Refills, Maintenance, 04/12/24 5:12:00 PM EST, [facility]pharmacy [id number], Partial fill upon patient request if the prescription is for a schedule II opioid drug., 168, cm, 03/19/24 14:34:00 EST, Height, 106.2, kg, 03/19/24 14:28:00 EST, Dry Weight Start Date: 04/12/24 Status: Ordered Quantity: 30.0 Unit: tablet Repeat [...] Active Bilateral chronic knee pain Confirmed Active *[id number] 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 Severe obesity (BMI [...] Team Personnel Name: Osman Gibbons MD Position: [facility] Renal MD Member Role: Lifetime Consulting Physician Address: [address] [place] [address] [address] [place] [address]- [place] Telecom: Name: Sharon Grossman RN Position: [facility] KRYSTIAN No Tools Member Role: Primary Care Nurse Name: Alessandra Low LPN Position: [facility] RN Member Role: Primary Care Nurse Name: Sharita Gonsales RN Position: [facility] RN Member Role: Primary Care Nurse Name: Smiley Scott Position: [facility] PCO Associate Professional Member Role: PCP Address: [address] [place] [phone]- Telecom: Care Team Related Persons Name: ROSSANA LOPEZ Name: SUELLEN DOSS Insurance Providers Guarantor name: JONNIE HOLT Health Plan Information #: 1 Payer: NA Member Number: NA Policy Number: NA Group Number: NA
--- OUTSIDE RECORDS SUMMARY | 2024-07-08 18:18 | XMS_ITS | Continuity of Care Document ---
Author Organization [facility] Address [address] [place] [address]- Care Team Providers Care Box Strapper Name Role Phone Passer Smiley [place]TANA Primary Care Physician [place] [facility] [place] - 06/20/24 [facility] [address] [address]- Encounter Type: Triage Allergies, Adverse Reactions, Alerts [...] Maintenance, 03/26/24 1:44:00 PM EST, [facility], 168, cm, 03/19/24 14:34:00 EST, Height, 106.2, [...] 6 Refills, Maintenance, 01/16/24 5:12:00 PM EDT, [facility]220[facility], 90, TOME DEVYN TABLETA POR BOCA DEVYN [...] 11:22:00 AM EST, Route to Pharmacy Electronically, [facility]/pharmacy #[id number], Partial fill upon patient request if the prescription is for a schedule II opioid drug., 168, cm, 04/15/24 11:02:00 EST, Height, 106.2, kg, 03/19/24 14:28:00 EST, Dry Weight Start Date: 04/15/24 Status: Ordered Quantity: 120.0 Unit: tablet Repeat number: 4 Indication: Epigastric pain ciclopirox 8% topical solution 1 application, Topically, Daily, for fungus label in vatican citizen, # 6.6 mL, 2 Refills, Maintenance, 03/19/24 3:22:00 PM EST, Solution, [facility]/pharmacy #[id number], Partial fill upon patient request if the prescription is for a schedule II opioid drug., 1 application Topically Daily,Instr:for fungus; label in v[place] citizen, 168, cm, 03/19/24 14:34:00 EST, Height, 106.2, kg, 03/19/24 14:28:00 EST, Dry Weight Start Date: 03/19/24 Status: Ordered Quantity: 6.6 Unit: mL Repeat number: 3 diclofenac 1% topical gel = 2 Gm, Topically, 4 times a day, not to exceed 16 grams/day/single joint of lower extremities label in vatican citizen, # 100 Gm, 6 Refills, Maintenance, 09/17/23 6:36:00 PM EDT, Gel, [facility]/pharmacy #[id number], Partial fill upon [...] Maintenance, 05/05/24 1:46:00 PM EST, [facility], 168, cm, 04/15/24 11:02:00 EST, Height, 106.2, [...] 08/13/24 11:27:00 AM EDT, 04/15/2411:27:00 AM EST, [facility]/pharmacy #[id number], Partial fill upon [...] 1 Refills, Maintenance, 05/20/24 8:35:00 AM EST, [facility]/pharmacy #[id number], 168, cm, 04/15/24 11:02:00 EST, Height, 106.2, kg, 03/19/24 14:28:00 EST, Dry Weight Start Date: 05/20/24 Status: Ordered Quantity: 180.0 Unit: tablet Repeat number: 2 losartan 50 mg oral tablet 50 mg, 1, tablet, By Mouth, Daily, for blood pressure dosage adjustment label in vatican citizen, # 90 tablet, Refills 1, Tot. Refills 1, Maintenance, 03/19/24 3:22:00 PM EST, [id number] fill upon patient request [...] 3 Refills, Maintenance, 05/21/24 11:33:00 AM EST, [facility]/pharmacy #[id number], 168, cm, 04/15/24 [...] EDT, 04/27/24 11:59:00 AM EST, REC Powder, [id number] fill upon patient request [...] a day, FOR ABDOMINAL PAIN LABEL IN [place]AN[place], # 180 tablet, 1 Refills, Maintenance, 01/30/24 [...] Maintenance, 04/15/24 11:27:00 AM EST, REC Powder, [facility]/pharmacy #[id number], Partial fill upon [...] Maintenance, 12/04/23 11:17:00 AM EDT, [facility], 168, cm, 07/03/2414:43:00 EST, Height, 98.18, kg, 07/04/23 15:43:00 EST, Dry Weight Start Date: 12/04/23 Status: Ordered Quantity: 180.0 Unit: tablet Repeat number: 1 simvastatin 20 mg oral tablet 20 mg, 1, tablet, By Mouth, Daily at bedtime, for cholesterol label in vatican citizen, # 90 tablet, Refills 1, Tot. Refills 1, Maintenance, 03/19/24 3:22:00 PM EST, Route to Pharmacy Electronically, [facility]/pharmacy #[id number], Partial fill upon patient request if the prescription is for a schedule II opioid drug., 168, cm, 03/19/24 14:34:00 EST, Height, 106.2, kg, 03/19/24 14:28:00 EST, Dry Weight Start Date: 03/19/24 Status: Ordered Quantity: 90.0 Unit: tablet Repeat number: 2 zolpidem 10 mg oral tablet 1 tablet = 10 mg, By Mouth, Daily at bedtime, for sleep label in vatican citizen, # 30 tablet, 1 Refills, Maintenance, 06/17/24 10:57:00 AM EST, [facility]/pharmacy #[id number], Partial fill upon patient request if the [...] Active Bilateral chronic knee pain Confirmed Active *[id number] 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 Active Severe obesity (BMI [...] Personnel Name: Shai RODRÍGUEZ, Osman Hernández Position: [facility] Renal MD Member Role: Lifetime Consulting Physician Address: [address] [place] [address] [address] [place] [address]- [place] Telecom: Name: Sharon Grossman RN Position: [facility] PREMIX OPERATOR CONCENTRATE No Tools Member Role: Primary Care Nurse Name: Alessandra Low LPN Position: [facility] RN Member Role: Primary Care Nurse Name: Sharita Gonsales RN Position: [facility] RN Member Role: Primary Care Nurse Name: Smiley Scott Position: [facility] PCO Associate Professional Member Role: PCP Address: [address] [place] [address]- Telecom: Care Team Related Persons Name: ROSSANA LOPEZ Name: SUELLEN DOSS Insurance Providers Guarantor name: JONNIE HOLT Health Plan Information #: 1 Payer: NA Member Number: NA Policy Number: NA Group Number: NA
--- OUTSIDE RECORDS SUMMARY | 2024-07-08 18:18 | XMS_ITS | Continuity of Care Document ---
Author Organization [facility] Address [address] [place] [address]- Care Team Providers Care Sternman Name Role Phone Passer Smiley [place] Primary Care Physician [place] [facility] [place]24 [facility] [place] [address] [place] [address]- Encounter Type: Triage Allergies, Adverse Reactions, Alerts [...] Maintenance, 03/26/24 1:44:00 PM EST, [facility], 168, cm, 03/19/24 14:34:00 EST, Height, 106.2, [...] Maintenance, 01/16/24 5:12:00 PM EDT, [facility], 90, TOME DEVYN TABLETA POR BOCA DEVYN [...] 11:22:00 AM EST, Route to Pharmacy Electronically, [facility]/pharmacy #[id number], Partial fill upon patient request if the prescription is for a schedule II opioid drug., 168, cm, 04/15/24 11:02:00 EST, Height, 106.2, kg, 03/19/24 14:28:00 EST, Dry Weight Start Date: 04/15/24 Status: Ordered Quantity: 120.0 Unit: tablet Repeat number: 4 Indication: Epigastric pain ciclopirox 8% topical solution 1 application, Topically, Daily, for fungus label in czech, # 6.6 mL, 2 Refills, Maintenance, 03/19/24 3:22:00 PM EST, Solution, [facility]/pharmacy #[id number], Partial fill upon patient request if the prescription is for a schedule II opioid drug., 1 application Topically Daily,Instr:for fungus; label in czech, 168, cm, 03/19/24 14:34:00 EST, Height, 106.2, kg, 03/19/24 14:28:00 EST, Dry Weight Start Date: 03/19/24 Status: Ordered Quantity: 6.6 Unit: mL Repeat number: 3 diclofenac 1% topical gel = 2 Gm, Topically, 4 times a day, not to exceed 16 grams/day/single joint of lower extremities label in czech, # 100 Gm, 6 Refills, Maintenance, 09/17/23 6:36:00 PM EDT, Gel, [facility]/pharmacy #[id number], Partial fill upon patient request if [...] Maintenance, 05/05/24 1:46:00 PM EST, [facility], 168, cm, 04/15/24 11:02:00 EST, Height, 106.2, [...] 08/13/24 11:27:00 AM EDT, 04/15/2411:27:00 AM EST, [facility]/pharmacy #[id number], Partial fill upon patient request if [...] for blood pressure dosage adjustment label in czech, # 90 tablet, Refills 1, Tot. Refills 1, Maintenance, 03/19/24 3:22:00 PM EST, [id number] fill upon patient request [...] 3 Refills, Maintenance, 05/21/24 11:33:00 AM EST, [facility]/pharmacy #[id number], 168, cm, 04/15/24 11:02:00 EST, Height, [...] EDT, 04/27/24 11:59:00 AM EST, REC Powder, [id number] Partial fill upon patient request [...] a day, FOR ABDOMINAL PAIN LABEL IN SW[place], # 180 tablet, 1 Refills, Maintenance, 01/30/24 [...] Maintenance, 04/15/24 11:27:00 AM EST, REC Powder, [facility]/pharmacy #[id number], Partial fill upon patient request if [...] 6 Refills, Maintenance, 12/04/23 11:17:00 AM EDT, [facility] 09164, 168, cm, 07/03/2414:43:00 EST, Height, 98.18, kg, 07/04/23 15:43:00 EST, Dry Weight Start Date: 12/04/23 Status: Ordered Quantity: 180.0 Unit: tablet Repeat number: 1 simvastatin 20 mg oral tablet 20 mg, 1, tablet, By Mouth, Daily at bedtime, for cholesterol label in czech, # 90 tablet, Refills 1, Tot. Refills 1, Maintenance, 03/19/24 3:22:00 PM EST, Route to Pharmacy Electronically, [facility]/pharmacy #[id number], Partial fill upon patient request if the prescription is for a schedule II opioid drug., 168, cm, 03/19/24 14:34:00 EST, Height, 106.2, kg, 03/19/24 14:28:00 EST, Dry Weight Start Date: 03/19/24 Status: Ordered Quantity: 90.0 Unit: tablet Repeat number: 2 zolpidem 10 mg oral tablet 1 tablet = 10 mg, By Mouth, Daily at bedtime, for sleep label in czech, # 30 tablet, 1 Refills, Maintenance, 06/17/24 10:57:00 AM EST, [facility]/pharmacy #[id number], Partial fill upon patient request if the [...] Active Bilateral chronic knee pain Confirmed Active *[id number] 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 Confirmed Active Severe obesity (BMI [...] Personnel Name: Shai RODRÍGUEZ, Osman Hernández Position: [facility] Renal MD Member Role: Lifetime Consulting Physician Address: [address] [place] [address] [address] [place] [address]- Telecom: Name: Sharon Grossman RN Position: [facility] CASINO CASHIER No Tools Member Role: Primary Care Nurse Name: Alessandra Low LPN Position: [facility] RN Member Role: Primary Care Nurse Name: Sharita Gonsales RN Position: [facility] RN Member Role: Primary Care Nurse Name: Smiley Scott Position: [facility] PCO Associate Professional Member Role: PCP Address: [address] [place] [address]- Telecom: Care Team Related Persons Name: ROSSANA LOPEZ Name: SUELLEN DOSS Insurance Providers Guarantor name: JONNIE HOLT Health Plan Information #: 1 Payer: NA Member Number: NA Policy Number: NA Group Number: NA
== END 2024-07-08 15:21 | disposition home or self-care (01) ==
LOC: HO.HKAS 14:27
PROVIDERS: PCP Physician Assistant Medical; Visit Provider Internal Medicine Nephrology
DX: I10 Essential (primary) hypertension (principal)
CPT/HCPCS: 99204

== ENCOUNTER → 2024-07-08 14:26 | Outpatient (BNVA) | payer OTHER, SELFPAY | PROVIDERS: PCP Physician Assistant Medical; Visit Provider Internal Medicine Nephrology | DX: I10 Essential (primary) hypertension (principal); E78.5 Hyperlipidemia, unspecified; Z86.73 Personal history of transient ischemic attack (TIA), and cerebral infarction without residual deficits | CPT/HCPCS: 99202 ==